=== PATIENT | female | born 1950 | race Caucasian/White ===

== ENCOUNTER 2017-01-05 09:43 | Outpatient (CLI) | payer MEDICARE, OTHER ==
--- NOTE | 2017-01-05 10:53 | XRAY Report ---
TWO VIEW CHEST: 01/05/2017 CLINICAL INDICATION: Shortness of breath. FINDINGS: Frontal and lateral views of the chest demonstrate a normal cardiac silhouette. The lungs are hyperinflated, suggestive of COPD. No focal consolidation, effusion, or pneumothorax is present. IMPRESSION: HYPERINFLATION, SUGGESTIVE OF COPD. JOB #: [id number] EXT JOB #: [id number] [facility]
== END 2017-01-05 09:44 | disposition home or self-care (01) ==
LOC: DI.S 09:43
PROVIDERS: ATTEND Nurse Practitioner Family
DX: R91.8 Other nonspecific abnormal finding of lung field (principal)
CPT/HCPCS: 71020

== ENCOUNTER 2017-01-19 20:23 | Outpatient (CLI) | payer MEDICARE, OTHER ==
[2017-01-19 18:15] LABS: BILIRUBIN,URINE NEGATIVE (NEGATIVE); PH,URINE 6.5 PH (5.0-7.5)
[2017-01-19 18:32] LABS: UR CULTURE IF IND NOT INDICATED; WBC,URINE 0-3 /HPF (0-5)
[2017-01-19 18:41] LABS: ALBUMIN/GLOBULIN RATIO 1.2 (1.0-2.2); BILIRUBIN,TOTAL 0.8 mg/dL (0.2-1.0); BUN - BLOOD UREA NITROGEN 17 mg/dL (6-20); CALCIUM 9.1 mg/dL (8.5-10.3); CARBON DIOXIDE - CO2 28 mmol/L (21-32); CHLORIDE 103 mmol/L (101-111); CHOL/HDL RATIO 3.3 (<4.4); CHOLESTEROL 121 mg/dL; CREATININE 0.7 mg/dL (0.4-1.0); GFR - MDRD 83 (>89); GLUCOSE 116 mg/dL (70-100); HDL CHOLESTEROL 37 mg/dL; LDL/HDL RATIO 1.2 (<4.4); POTASSIUM 3.8 mmol/L (3.5-5.0); SODIUM 139 mmol/L (135-145); TOTAL PROTEIN 6.9 g/dL (6.7-8.2); TRIGLYCERIDES 188 mg/dL; VLDL CHOLESTEROL 38 mg/dL
[2017-01-19 19:11] LABS: BASOPHILS # (AUTO) 0.1 10^3/uL (0.0-0.1); BASOPHILS % (AUTO) 1.1 %; EOSINOPHILS # (AUTO) 0.1 10^3/uL (0.0-0.7); HGB - HEMOGLOBIN 12.9 g/dL (12.0-16.0); LYMPHOCYTES # (AUTO) 1.3 10^3/uL (1.5-3.5); LYMPHOCYTES % (AUTO) 19.8 %; MEAN CORPUSCULAR HEMOGLOBIN 32.2 pg (27.0-31.0); MEAN CORPUSCULAR VOLUME 97.5 fL (81.0-99.0); MEAN PLATELET VOLUME 8.3 fL (7.9-10.8); MONOCYTES # (AUTO) 0.9 10^3/uL (0.0-1.0); MONOCYTES % (AUTO) 13.8 %; NEUTROPHILS # (AUTO) 4.3 10^3/uL (1.5-6.6); NEUTROPHILS % (AUTO) 63.3 %; NUCLEATED RED BLOOD CELLS AUTO 0.1 /100WBC; RED CELL DISTRIBUTION WIDTH 13.6 % (12.0-15.0); UNCORRECTED WHITE BLOOD COUNT 6.8 x10^3/uL; WHITE BLOOD COUNT 6.8 x10^3/uL (4.8-10.8)
[2017-01-19 19:57] LABS: HEMOGLOBIN A1C 0.69 g/dL
== END 2017-01-19 20:24 | disposition home or self-care (01) ==
LOC: LAB.S 20:23
PROVIDERS: ATTEND Nurse Practitioner Family
DX: I10 Essential (primary) hypertension (principal); E11.9 Type 2 diabetes mellitus without complications; E78.5 Hyperlipidemia, unspecified; E03.9 Hypothyroidism, unspecified
CPT/HCPCS: 36415; 80053; 80061; 81001; 82043; 82570; 83036; 84443; 85025; 87086

== ENCOUNTER 2017-01-21 12:44 | Outpatient (CLI) | payer MEDICARE, OTHER ==
[2017-01-21] MEDS ORDERED: ALBUTEROL NEB 2.5 MG/3 ML INH ONE (15:00)
== END 2017-01-21 12:45 | disposition home or self-care (01) ==
LOC: RT 12:44
PROVIDERS: ATTEND Nurse Practitioner Family
DX: R06.02 Shortness of breath (principal)
CPT/HCPCS: 94060; J7613

== ENCOUNTER 2017-08-03 10:09 | Outpatient (CLI) | payer MEDICARE, OTHER ==
[2017-08-03 20:34] LABS: HB2 TOTAL 15.3 g/dL; HEMOGLOBIN A1C 0.71 g/dL; HEMOGLOBIN A1C % 6.4 % (4.6-6.2)
== END 2017-08-03 10:10 | disposition home or self-care (01) ==
LOC: LAB.S 10:09
PROVIDERS: ATTEND Nurse Practitioner Family
DX: E11.9 Type 2 diabetes mellitus without complications (principal)
CPT/HCPCS: 36415; 83036

== ENCOUNTER 2017-08-03 10:10 | Outpatient (CLI) | payer MEDICARE, OTHER ==
--- NOTE | 2017-08-05 09:39 | Mammography Report ---
BILATERAL SCREENING MAMMOGRAM: 08/03/2017. COMPARISON: Mammogram 07/17/2016. INDICATION: Screening. TECHNIQUE: Bilateral CC and MLO breast views. FINDINGS: There are scattered fibroglandular densities. No dominant mass, architectural distortion, or concerning cluster of microcalcifications are seen. IMPRESSION: 1. BI-RADS CATEGORY 1 - NEGATIVE. 2. RECOMMEND ANNUAL SCREENING MAMMOGRAM. STANDARD QUALIFYING STATEMENTS: 1. This examination was reviewed with the aid of Computer-Aided Detection (CAD) . 2. A negative or benign imaging report should not delay biopsy if clinically suspicious findings are present. Consider surgical consultation if warranted. More than 5 % of cancers are not identified by imaging. 3. Dense breasts may obscure an underlying neoplasm. TD: 08/05/2017 09:38 [place]
== END 2017-08-03 10:11 | disposition home or self-care (01) ==
LOC: DI.S 10:10
PROVIDERS: ATTEND Nurse Practitioner Family
DX: Z12.31 Encounter for screening mammogram for malignant neoplasm of breast (principal)
CPT/HCPCS: 77067

== ENCOUNTER 2018-06-07 08:00 | Outpatient (CLI) | payer MEDICARE, OTHER ==
[2018-06-07 18:15] LABS: BASOPHILS # (AUTO) 0.1 10^3/uL (0.0-0.1); BASOPHILS % (AUTO) 1.2 %; EOSINOPHILS # (AUTO) 0.2 10^3/uL (0.0-0.7); EOSINOPHILS % (AUTO) 2.8 %; HGB - HEMOGLOBIN 13.7 g/dL (12.0-16.0); LYMPHOCYTES # (AUTO) 0.9 10^3/uL (1.5-3.5); LYMPHOCYTES % (AUTO) 13.2 %; MEAN CORPUSCULAR HEMOGLOBIN 31.5 pg (27.0-31.0); MEAN CORPUSCULAR HGB CONC 32.5 g/dL (32.0-36.0); MEAN CORPUSCULAR VOLUME 96.7 fL (81.0-99.0); MEAN PLATELET VOLUME 7.9 fL (7.9-10.8); MONOCYTES % (AUTO) 14.7 %; NEUTROPHILS # (AUTO) 4.8 10^3/uL (1.5-6.6); NEUTROPHILS % (AUTO) 68.1 %; PLT - PLATELET COUNT 357 10^3/uL (130-450); RED BLOOD COUNT 4.36 10^6/uL (4.20-5.40); RED CELL DISTRIBUTION WIDTH 14.3 % (12.0-15.0)
[2018-06-07 18:26] LABS: HB2 TOTAL 14.3 g/dL; HEMOGLOBIN A1C 0.66 g/dL; HEMOGLOBIN A1C % 6.4 % (4.6-6.2)
[2018-06-07 18:54] LABS: ALBUMIN 3.9 g/dL (3.2-5.5); ALBUMIN/GLOBULIN RATIO 1.1 (1.0-2.2); ALKALINE PHOSPHATASE 91 IU/L (42-121); ALT ALANINE AMINOTRANSFERASE 18 IU/L (10-60); AST ASPARTATE AMINOTRANSFERASE 22 IU/L (10-42); BILIRUBIN,TOTAL 0.7 mg/dL (0.2-1.0); BUN - BLOOD UREA NITROGEN 13 mg/dL (6-20); CALCIUM 9.1 mg/dL (8.5-10.3); CARBON DIOXIDE - CO2 23 mmol/L (21-32); CHLORIDE 105 mmol/L (101-111); CHOL/HDL RATIO 3.5 (<4.4); CHOLESTEROL 138 mg/dL; CREATININE 0.7 mg/dL (0.4-1.0); GFR - MDRD 83 (>89); GLUCOSE 127 mg/dL (70-100); HDL CHOLESTEROL 39 mg/dL; LDL CHOLESTEROL,CALCULATED 63 mg/dL; LDL/HDL RATIO 1.6 (<4.4); SODIUM 137 mmol/L (135-145); TOTAL PROTEIN 7.6 g/dL (6.7-8.2); VLDL CHOLESTEROL 36 mg/dL
== END 2018-06-07 23:59 | disposition home or self-care (01) ==
LOC: LAB.S 08:00
PROVIDERS: ATTEND Nurse Practitioner Family
DX: I10 Essential (primary) hypertension (principal); E03.9 Hypothyroidism, unspecified; E11.9 Type 2 diabetes mellitus without complications; E78.5 Hyperlipidemia, unspecified
CPT/HCPCS: 36415; 80053; 80061; 82043; 83036; 83721; 84443; 85025

== ENCOUNTER 2018-09-01 12:28 | Outpatient (CLI) | payer MEDICARE, OTHER | END 2018-09-01 12:29 | disposition home or self-care (01) | LOC: DI.N 12:28 | DX: Z53.9 Procedure and treatment not carried out, unspecified reason (principal) ==

== ENCOUNTER 2018-11-12 08:33 | Emergency (ER) | payer MEDICARE, OTHER ==
--- NOTE | 2018-11-12 08:53 | ED Physician Documentation ---
PD HPI DYSPNEA - Stated complaint Stated Complaint: SOA - Chief complaint Chief Complaint: Resp - History obtained from History obtained from: Patient - History of Present Illness Timing - onset: How many hours ago (4) Timing - onset during: Rest Timing - details: Still present Improved by: O2, BiPAP / CPAP Associated symptoms: Bilateral edema Similar symptoms before: Diagnosis ("Episodes of sleep apnea.") - Treatment prior to arrival Treatment prior to arrival: Oxygen 2L nasal cannula. - Additional information Additional information: Patient is a 68-year-old female with history of diabetes, atrial fibrillation, and sleep apnea who presents with shortness of breath that started at 4 AM today when up to the bathroom. She normally uses CPAP with 2 L supplemental oxygen when sleeping. She noticed that her pulse oximetry was low at 89% when she removed the oxygen. Normally she states it is around 94%. She denies chest pain, cough, or fever. She reports history of similar symptoms intermittently in the past, the last time being about 6 months ago. She states that her primary physician attributes them to "episodes of sleep apnea." Review of Systems Constitutional: denies: Fever Eyes: denies: Irritation Ears: denies: Tinnitus/ringing Nose: denies: Congestion Throat: denies: Sore throat Cardiac: denies: Chest pain / pressure Respiratory: reports: Dyspnea. denies: Cough GI: denies: Abdominal Pain, Nausea, Vomiting : denies: Dysuria Skin: denies: Rash Musculoskeletal: reports: Extremity swelling (chronic lymphadema.) Neurologic: denies: Focal weakness, Numbness, Headache PD PAST MEDICAL HISTORY - Present Medications Home Medications: Ambulatory Orders Medication Instructions Recorded Confirmed Albuterol Sulfate [Albuterol 0 11/12/18 Sulfate Hfa] Alendronate [Fosamax] 11/12/18 Atorvastatin Calcium 1 tab PO DAILY 11/12/18 11/12/18 Dabigatran Etexilate Mesylate 0 11/12/18 [Pradaxa] Diltiazem HCl [Dilt-Xr] 11/12/18 Fluticasone 44 Mcg [Flovent] 0 11/12/18 Levothyroxine Sodium 1 tab PO DAILY 11/12/18 11/12/18 Losartan [Cozaar] 0.5 tab PO BID 11/12/18 11/12/18 Metoprolol Succinate [Toprol Xl] 1 tab PO DAILY 11/12/18 11/12/18 Zolpidem [Ambien] 11/12/18 hydroCHLOROthiazide 1 tab PO DAILY 11/12/18 11/12/18 [Hydrochlorothiazide] metFORMIN [Glucophage] 1 tab PO BID 11/12/18 11/12/18 - Allergies Allergies/Adverse Reactions: Allergies Allergy/AdvReac Type Severity Reaction Status Date / Time acetaminophen [From Percocet] AdvReac Hallucinati Verified 11/12/18 08:55 ons codeine AdvReac Dizziness Verified 11/12/18 08:56 oxycodone [From Percocet] AdvReac Hallucinati Verified 11/12/18 08:55 ons PD ED PE NORMAL - Vitals Vital signs reviewed: Yes (Systolic hypertension.) - General General: Alert and oriented X 3, Well developed/nourished, Other (Morbidly obese .) - HEENT HEENT: Atraumatic, Pharynx benign - Neck Neck: No adenopathy, No JVD - Cardiac Cardiac: RRR, No murmur - Respiratory Respiratory: Clear bilaterally, Other (On 2L supplemental oxygen.) - Abdomen Abdomen: Soft, Non tender - Back Back: No CVA TTP - Derm Derm: No rash - Extremities Extremities: No calf tenderness / cord, Other (Bilateral lymphadema.) - Neuro Neuro: Alert and oriented X 3, No motor deficit, No sensory deficit, Normal speech Results - Vitals Vitals: Vital Signs - 24 hr 11/12/18 11:20 Temperature 36.8 C Heart Rate 85 Respiratory 20 Rate Blood Pressure 131/68 H O2 Saturation 96 Oxygen O2 Source Nasal cannula Oxygen Flow Rate 3.5 - EKG (time done) 08:49 Rate: Rate (enter#) (71) Rhythm: Atrial fibrillation [place]: Normal QRS: Normal Ischemia: Normal ST segments Compare to prior EKG: Old EKG unavailable Computer interpretation: Agree with computer - Labs Labs: Laboratory Tests 11/12/18 11/12/18 11/12/18 09:45 09:45 09:45 WBC 11.0 H RBC 4.15 L Hgb 12.5 Hct 40.1 MCV 96.6 MCH 30.1 MCHC 31.2 L RDW 12.9 Plt Count 341 MPV 9.2 Neut # (Auto) 8.4 H Lymph # (Auto) 1.0 L [place] # (Auto) 1.3 H Eos # (Auto) 0.1 Baso # (Auto) 0.1 Absolute Nucleated RBC 0.00 Nucleated RBC % 0.0 D-Dimer Sodium 140 Potassium 3.8 Chloride 105 Carbon Dioxide 23 Anion Gap 12.0 BUN 13 Creatinine 0.7 Estimated GFR (MDRD) 83 L Glucose 144 H Calcium 9.2 Total Bilirubin 0.8 AST 16 ALT 17 Alkaline Phosphatase 88 Troponin I < 0.04 B-Natriuretic Peptide Total Protein 7.6 Albumin 3.7 Globulin 3.9 Albumin/Globulin Ratio 0.9 L Lipase 22 Urine Color Urine Clarity Urine pH Ur Specific [place] Urine Protein Urine Glucose (UA) Urine Ketones Urine Occult Blood Urine Nitrite Urine Bilirubin Urine Urobilinogen Ur Leukocyte Esterase Urine RBC Urine WBC Ur Squamous Epith Cells Urine Bacteria Ur Microscopic Review Urine Culture Comments 11/12/18 11/12/18 11/12/18 09:45 09:45 10:45 WBC RBC Hgb Hct MCV MCH MCHC RDW Plt Count MPV Neut # (Auto) Lymph # (Auto) [place] # (Auto) Eos # (Auto) Baso # (Auto) Absolute Nucleated RBC Nucleated RBC % D-Dimer < 200.0 L Sodium Potassium Chloride Carbon Dioxide Anion Gap BUN Creatinine Estimated GFR (MDRD) Glucose Calcium Total Bilirubin AST ALT Alkaline Phosphatase Troponin I B-Natriuretic Peptide 234 H Total Protein Albumin Globulin Albumin/Globulin Ratio Lipase Urine Color YELLOW Urine Clarity CLEAR Urine pH 5.5 Ur Specific [place] <=1.005 Urine Protein NEGATIVE Urine Glucose (UA) NEGATIVE Urine Ketones NEGATIVE Urine Occult Blood NEGATIVE Urine Nitrite NEGATIVE Urine Bilirubin NEGATIVE Urine Urobilinogen 0.2 (NORMAL) Ur Leukocyte Esterase TRACE H Urine RBC 0-5 Urine WBC 0-3 Ur Squamous Epith Cells NONE SEEN Urine Bacteria Rare Ur Microscopic Review INDICATED Urine Culture Comments INDICATED - Rads (name of study) CXR Radiology: Prelim report reviewed, EMP read contemporaneously, See rad report (Mild cardiomegaly.) PD MEDICAL DECISION MAKING - ED course Complexity details: reviewed old records, reviewed results, re-evaluated patient, considered differential, d/w patient, d/w family ED course: The patient's presentation is most consistent with mild congestive heart failure. Her chest x-ray reveals mild cardiomegaly, without pleural effusions. Her EKG reveals no evidence of myocardial ischemia, and her troponin is normal. Her BNP is slightly elevated at 234. Treatment in the emergency department included administration of furosemide 20 mg IV. The patient diuresed, and felt subjectively much improved. She will continue taking her normal dose of hydrochlorothiazide as an outpatient. I will not prescribe additional diuretic therapy based on this one episode. I discussed with her and her family the importance of outpatient follow-up, as well as potentially worrisome signs or symptoms that should prompt reevaluation in the emergency department. Departure - Departure Disposition: 01 Home, Self Care Clinical Impression: Congestive heart failure Qualifiers: Heart failure type: unspecified Heart failure chronicity: unspecified Qualified Code(s): I50.9 - Heart failure, unspecified Condition: Stable Health Concerns: Shortness of breath. Plan of Treatment: Continue hydrochlorothiazide. Care Goals: Minimize heart failure. Assessment: see above. Instructions: ED CHF General Comments: Continue taking hydrochlorothiazide as previously prescribed. Avoid salty foods. Follow-up with your primary physician within 1 to 2 weeks. Call to schedule an appointment. Return to the emergency department if you develop increasing difficulty breathing, chest pain, or otherwise worsening symptoms. Discharge Date/Time: 11/12/18 11:23
--- NOTE | 2018-11-12 09:19 | XRAY Report ---
Reason: dyspnea Procedure Date: 11/12/2018 Accession Number: [id number] / [id number] Procedure: XR - Chest 2 View X-Ray CPT Code: 00346 FULL RESULT: EXAM: CHEST RADIOGRAPHY EXAM DATE: 11/12/2018 09:09 AM. CLINICAL HISTORY: Dyspnea. COMPARISON: 01/05/2017. TECHNIQUE: 2 views. FINDINGS: Exam is mildly limited by technique. Lungs/Pleura: No focal opacities evident. No pleural effusion. No pneumothorax. Normal volumes. Mediastinum: The heart size is mildly enlarged. Arterial calcifications indicate atherosclerosis. Other: Anterior endplate spurring is in the thoracic spine. IMPRESSION: Mild cardiomegaly. RADIA
[2018-11-12] MEDS ORDERED: FUROSEMIDE 20 MG/2 ML VIAL IVP STA (09:53)
[2018-11-12 10:01] LABS: BASOPHILS # (AUTO) 0.1 10^3/uL (0.0-0.1); BASOPHILS % (AUTO) 0.5 %; EOSINOPHILS # (AUTO) 0.1 10^3/uL (0.0-0.7); EOSINOPHILS % (AUTO) 1.1 %; HGB - HEMOGLOBIN 12.5 g/dL (12.0-16.0); LYMPHOCYTES % (AUTO) 9.2 %; MEAN CORPUSCULAR HEMOGLOBIN 30.1 pg (27.0-31.0); MEAN CORPUSCULAR HGB CONC 31.2 g/dL (32.0-36.0); MEAN CORPUSCULAR VOLUME 96.6 fL (81.0-99.0); MEAN PLATELET VOLUME 9.2 fL (7.9-10.8); MONOCYTES # (AUTO) 1.3 10^3/uL (0.0-1.0); MONOCYTES % (AUTO) 12.1 %; NEUTROPHILS # (AUTO) 8.4 10^3/uL (1.5-6.6); NEUTROPHILS % (AUTO) 76.5 %; PLT - PLATELET COUNT 341 10^3/uL (130-450); RED BLOOD COUNT 4.15 10^6/uL (4.20-5.40); RED CELL DISTRIBUTION WIDTH 12.9 % (12.0-15.0)
[2018-11-12 10:16] LABS: ALBUMIN 3.7 g/dL (3.2-5.5); ALBUMIN/GLOBULIN RATIO 0.9 (1.0-2.2); BILIRUBIN,TOTAL 0.8 mg/dL (0.2-1.0); CALCIUM 9.2 mg/dL (8.5-10.3); CREATININE 0.7 mg/dL (0.4-1.0); TOTAL PROTEIN 7.6 g/dL (6.7-8.2)
[2018-11-12 10:50] LABS: BILIRUBIN,URINE NEGATIVE (NEGATIVE); GLUCOSE, URINE (UA) NEGATIVE (NEGATIVE); KETONES,URINE (UA) NEGATIVE (NEGATIVE); LEUKOCYTE ESTERASE, URINE TRACE (NEGATIVE); NITRITE,URINE NEGATIVE (NEGATIVE); OCCULT BLOOD,URINE NEGATIVE (NEGATIVE); PH,URINE 5.5 PH (5.0-7.5); PROTEIN,URINE NEGATIVE (NEGATIVE); UROBILINOGEN,URINE 0.2 (NORMAL) E.U./dL (NORMAL)
[2018-11-12 10:53] LABS: CLARITY,URINE CLEAR (CLEAR)
[2018-11-12 10:58] LABS: RBC,URINE 0-5 /HPF (0-5)
[2018-11-12 10:59] LABS: BACTERIA,URINE Rare /HPF (None Seen); SQUAMOUS EPITHELIAL CELL,UR NONE SEEN (<= Few)
[2018-11-12 11:20] VITALS: BP 131/68
== END 2018-11-12 11:23 | disposition home or self-care (01) ==
LOC: ED 08:33
DX: I50.9 Heart failure, unspecified (principal); I89.0 Lymphedema, not elsewhere classified; I48.91 Unspecified atrial fibrillation; Z79.01 Long term (current) use of anticoagulants; E11.9 Type 2 diabetes mellitus without complications; Z79.84 Long term (current) use of oral hypoglycemic drugs; G47.30 Sleep apnea, unspecified
CPT/HCPCS: 36415; 71046; 80053; 81001; 81003; 83690; 83880; 84484; 85025; 85379; 87086; 87181; 93005; 96374; 99284

== ENCOUNTER 2019-02-09 10:22 | Outpatient (CLI) | payer MEDICARE, OTHER | END 2019-02-09 10:23 | disposition home or self-care (01) | LOC: DI 10:22 | PROVIDERS: ATTEND Internal Medicine Cardiovascular Disease | DX: I48.91 Unspecified atrial fibrillation (principal); I50.9 Heart failure, unspecified; I34.0 Nonrheumatic mitral (valve) insufficiency; I27.20 Pulmonary hypertension, unspecified | CPT/HCPCS: 93306 ==

== ENCOUNTER 2019-03-01 14:16 | Outpatient (CLI) | payer MEDICARE, OTHER ==
[2019-03-01 17:43] LABS: CREATININE 0.7 mg/dL (0.4-1.0)
== END 2019-03-01 14:17 | disposition home or self-care (01) ==
LOC: LAB.S 14:16
PROVIDERS: ATTEND Internal Medicine Cardiovascular Disease
DX: I50.32 Chronic diastolic (congestive) heart failure (principal)
CPT/HCPCS: 36415; 80048

== ENCOUNTER 2019-03-03 08:57 | Outpatient (CLI) | payer MEDICARE, OTHER | END 2019-03-03 08:58 | disposition home or self-care (01) | LOC: RT 08:57 | PROVIDERS: ATTEND Obstetrics & Gynecology | DX: Z01.810 Encounter for preprocedural cardiovascular examination (principal); C54.1 Malignant neoplasm of endometrium | CPT/HCPCS: 93005; 93041 ==

== ENCOUNTER 2019-03-22 10:56 | Outpatient (CLI) | payer MEDICARE, OTHER ==
[2019-03-22 11:15] LABS: BILIRUBIN,URINE NEGATIVE (NEGATIVE); CLARITY,URINE HAZY (CLEAR); GLUCOSE, URINE (UA) NEGATIVE (NEGATIVE); KETONES,URINE (UA) NEGATIVE (NEGATIVE); LEUKOCYTE ESTERASE, URINE TRACE (NEGATIVE); NITRITE,URINE POSITIVE (NEGATIVE); OCCULT BLOOD,URINE LARGE (NEGATIVE); PROTEIN,URINE 100 mg/dL (NEGATIVE); UROBILINOGEN,URINE 1 (NORMAL) E.U./dL (NORMAL)
[2019-03-22 11:28] LABS: BACTERIA,URINE Few /HPF (None Seen); SQUAMOUS EPITHELIAL CELL,UR MANY Squamous (<= Few)
== END 2019-03-22 10:57 | disposition home or self-care (01) ==
LOC: LAB 10:56
PROVIDERS: ATTEND Obstetrics & Gynecology
DX: Z98.890 Other specified postprocedural states (principal); R39.15 Urgency of urination
CPT/HCPCS: 81001; 81003; 87086

== ENCOUNTER 2019-03-29 12:41 | Outpatient (CLI) | payer MEDICARE, OTHER ==
[2019-03-29 17:45] LABS: CALCIUM 8.8 mg/dL (8.5-10.3); CREATININE 0.7 mg/dL (0.4-1.0)
== END 2019-03-29 12:42 | disposition home or self-care (01) ==
LOC: LAB.S 12:41
PROVIDERS: ATTEND Internal Medicine Cardiovascular Disease
DX: I10 Essential (primary) hypertension (principal)
CPT/HCPCS: 36415; 80048

== ENCOUNTER 2020-01-18 10:19 | Outpatient (CLI) | payer MEDICARE, OTHER ==
[2020-01-18 15:06] LABS: BASOPHILS # (AUTO) 0.1 10^3/uL (0.0-0.1); BASOPHILS % (AUTO) 0.8 %; EOSINOPHILS # (AUTO) 0.2 10^3/uL (0.0-0.7); EOSINOPHILS % (AUTO) 2.8 %; HGB - HEMOGLOBIN 13.3 g/dL (12.0-16.0); LYMPHOCYTES % (AUTO) 12.4 %; MEAN CORPUSCULAR HEMOGLOBIN 30.7 pg (27.0-31.0); MEAN CORPUSCULAR HGB CONC 31.5 g/dL (32.0-36.0); MEAN CORPUSCULAR VOLUME 97.5 fL (81.0-99.0); MEAN PLATELET VOLUME 9.5 fL (7.9-10.8); MONOCYTES # (AUTO) 1.4 10^3/uL (0.0-1.0); MONOCYTES % (AUTO) 17.2 %; NEUTROPHILS # (AUTO) 5.3 10^3/uL (1.5-6.6); NEUTROPHILS % (AUTO) 66.2 %; PLT - PLATELET COUNT 346 10^3/uL (130-450); RED BLOOD COUNT 4.33 10^6/uL (4.20-5.40); RED CELL DISTRIBUTION WIDTH 13.8 % (12.0-15.0); WHITE BLOOD COUNT 7.9 x10^3/uL (4.8-10.8)
[2020-01-18 15:32] LABS: ALBUMIN 3.7 g/dL (3.2-5.5); ALBUMIN/GLOBULIN RATIO 0.8 (1.0-2.2); ALKALINE PHOSPHATASE 87 IU/L (42-121); ALT ALANINE AMINOTRANSFERASE 15 IU/L (10-60); AST ASPARTATE AMINOTRANSFERASE 17 IU/L (10-42); BUN - BLOOD UREA NITROGEN 13 mg/dL (6-20); CARBON DIOXIDE - CO2 29 mmol/L (21-32); CHLORIDE 101 mmol/L (101-111); CHOL/HDL RATIO 3.9 (<4.4); CHOLESTEROL 139 mg/dL; CREATININE 0.7 mg/dL (0.4-1.0); GLUCOSE 121 mg/dL (70-100); HDL CHOLESTEROL 36 mg/dL; LDL CHOLESTEROL,CALCULATED 66 mg/dL; LDL/HDL RATIO 1.8 (<4.4); SODIUM 136 mmol/L (135-145); TOTAL PROTEIN 8.1 g/dL (6.7-8.2); VLDL CHOLESTEROL 37 mg/dL
[2020-01-18 18:56] LABS: HEMOGLOBIN A1c% 6.7 % (4.27-6.07)
== END 2020-01-18 10:20 | disposition home or self-care (01) ==
LOC: LAB.S 10:19
PROVIDERS: ATTEND Registered Nurse
DX: E11.9 Type 2 diabetes mellitus without complications (principal); I10 Essential (primary) hypertension; E05.90 Thyrotoxicosis, unspecified without thyrotoxic crisis or storm; I27.20 Pulmonary hypertension, unspecified; J45.909 Unspecified asthma, uncomplicated
CPT/HCPCS: 36415; 80053; 80061; 83036; 83721; 84443; 85025

== ENCOUNTER 2020-12-19 08:00 | Outpatient (CLI) | payer MEDICARE, OTHER ==
--- NOTE | 2020-12-19 16:14 | XRAY Report ---
PROCEDURE: Chest 2 View X-Ray INDICATIONS: SHORTNESS OF BREATH TECHNIQUE: 2 view(s) of the chest. COMPARISON: 11/12/2018. FINDINGS: Surgical changes and devices: None. Lungs and pleura: No pleural effusions or pneumothorax. There is cephalization of pulmonary mass whi ch are interstitial prominence. Mediastinum: Mediastinal contours are normal. Heart is enlarged Bones and chest wall: No suspicious bony abnormalities. Soft tissues appear unremarkable. IMPRESSION: CHF. Reviewed by: Bettina Lezama MD, PhD on 12/19/2020 4:12 PM PDT Approved by: Bettina Lezama MD, PhD on 12/19/2020 4:12 PM PDT Station ID: [id number]
== END 2020-12-19 23:59 | disposition home or self-care (01) ==
LOC: DI.S 08:00
PROVIDERS: ATTEND Physician Assistant Medical
DX: I50.9 Heart failure, unspecified (principal)
CPT/HCPCS: 36415; 85025; 85379

== ENCOUNTER 2020-12-19 17:12 | Emergency (ER) | payer MEDICARE, OTHER ==
--- NOTE | 2020-12-19 17:46 | ED Physician Documentation ---
PD HPI DYSPNEA - Stated complaint Stated Complaint: SOA - Chief complaint Chief Complaint: Cardiac - History obtained from History obtained from: Patient - History of Present Illness Timing - duration: Days (4-5) Pain level max: 0 Pain level now: 0 Inciting event(s): No: URI Improved by: Rest Worsened by: Exertion Associated symptoms: No: Fever, Cough, Hemoptysis Recently seen: Not recently seen - Additional information Additional information: 70-year-old female with a history of CHF presents to the emergency department with increasing difficulty breathing over the past 4 to 5 days. She states she has asthma as well. Inhalers are not working. Uses Lasix as needed. Was seen at the walk-in clinic today, found to have pulmonary edema on chest x-ray and sent here. Denies any chest pain. No fevers no cough no hemoptysis. Better with rest, worse with walking. Patient has had her Covid vaccinations. Review of Systems Constitutional: denies: Fever, Chills Nose: denies: Rhinorrhea / runny nose, Congestion GI: denies: Vomiting Skin: denies: Rash Musculoskeletal: denies: Neck pain, Back pain Neurologic: denies: Headache PD PAST MEDICAL HISTORY - Past Medical History Cardiovascular: Atrial fibrillation Respiratory: Asthma, Shortness of breath Neuro: None Endocrine/Autoimmune: Type 2 diabetes, HyPOthyroidism GI: None MANAGER WEALTH MANAGEMENT: None : None HEENT: None Psych: None Musculoskeletal: Osteoarthritis Derm: None - Past Surgical History Past Surgical History: Yes HEENT: Tonsil/Adenoidectomy - Present Medications Home Medications: Ambulatory Orders Medication Instructions Recorded Confirmed Albuterol Sulfate [Albuterol 0 11/12/18 Sulfate Hfa] Alendronate [Fosamax] 11/12/18 Atorvastatin Calcium 1 tab PO DAILY 11/12/18 11/12/18 Dabigatran Etexilate Mesylate 0 11/12/18 [Pradaxa] Diltiazem HCl [Dilt-Xr] 11/12/18 Fluticasone 44 Mcg [Flovent] 0 11/12/18 Levothyroxine Sodium 1 tab PO DAILY 11/12/18 11/12/18 Losartan [Cozaar] 0.5 tab PO BID 11/12/18 11/12/18 Metoprolol Succinate [Toprol Xl] 1 tab PO DAILY 11/12/18 11/12/18 Zolpidem [Ambien] 11/12/18 hydroCHLOROthiazide 1 tab PO DAILY 11/12/18 11/12/18 [Hydrochlorothiazide] metFORMIN [Glucophage] 1 tab PO BID 11/12/18 11/12/18 - Allergies Allergies/Adverse Reactions: Allergies Allergy/AdvReac Type Severity Reaction Status Date / Time acetaminophen [From Percocet] AdvReac Hallucinati Verified 12/19/20 17:22 ons codeine AdvReac Dizziness Verified 12/19/20 17:22 oxycodone [From Percocet] AdvReac Hallucinati Verified 12/19/20 17:22 ons - Social History Does the pt smoke?: No Smoking Status: Never smoker Does the pt have substance abuse?: No - Immunizations Immunizations are current?: Yes PD ED PE NORMAL - Vitals Vital signs reviewed: Yes - General General: Alert and oriented X 3, No acute distress - HEENT HEENT: Moist mucous membranes - Neck Neck: Supple, no meningeal sign - Cardiac Cardiac: RRR - Respiratory Respiratory: No respiratory distress, Other (Crackles bilaterally) - Abdomen Abdomen: Soft, Non tender, Non distended - Derm Derm: Warm and dry - Extremities Extremities: Other (2+ bilateral lower extremity pitting edema.) - Neuro Neuro: Alert and oriented X 3 - Psych Psych: Normal mood, Normal affect Results - Vitals Vitals: Vital Signs - 24 hr 12/19/20 12/19/20 12/19/20 17:17 18:39 20:06 Temperature 36.2 C L Heart Rate 87 92 92 Respiratory 22 18 14 Rate Blood Pressure 127/79 106/84 H 116/94 H O2 Saturation 91 L 93 91 L 12/19/20 20:18 Temperature 36.3 C L Heart Rate 81 Respiratory 16 Rate Blood Pressure 110/81 H O2 Saturation 92 Oxygen O2 Source Nasal cannula - EKG (time done) 1732 Rate: Rate (enter#) (81) Rhythm: Atrial fibrillation [place]: Normal Intervals: Prolonged [place] QRS: Normal Ischemia: Non specific changes - Labs Labs: Laboratory Tests 12/19/20 12/19/20 12/19/20 17:45 17:45 17:45 WBC 11.3 H RBC 4.33 Hgb 13.6 Hct 41.3 MCV 95.4 MCH 31.4 H MCHC 32.9 RDW 13.2 Plt Count 361 MPV 9.0 Neut # (Auto) 8.6 H Lymph # (Auto) 1.1 L [place] # (Auto) 1.2 H Eos # (Auto) 0.3 Baso # (Auto) 0.1 Absolute Nucleated RBC 0.00 Nucleated RBC % 0.0 Sodium 137 Potassium 3.6 Chloride 100 L Carbon Dioxide 25 Anion Gap 12.0 BUN 21 H Creatinine 0.8 Estimated GFR (MDRD) 71 L Glucose 134 H Calcium 9.7 Total Bilirubin 1.0 AST 16 ALT 15 Alkaline Phosphatase 99 Troponin I High Sens 4.7 B-Natriuretic Peptide Total Protein 8.2 Albumin 3.9 Globulin 4.3 H Albumin/Globulin Ratio 0.9 L Lipase 24 12/19/20 17:45 WBC RBC Hgb Hct MCV MCH MCHC RDW Plt Count MPV Neut # (Auto) Lymph # (Auto) [place] # (Auto) Eos # (Auto) Baso # (Auto) Absolute Nucleated RBC Nucleated RBC % Sodium Potassium Chloride Carbon Dioxide Anion Gap BUN Creatinine Estimated GFR (MDRD) Glucose Calcium Total Bilirubin AST ALT Alkaline Phosphatase Troponin I High Sens B-Natriuretic Peptide 164 H Total Protein Albumin Globulin Albumin/Globulin Ratio Lipase - Rads (name of study) Chest x-ray Radiology: Final report received, EMP read contemporaneously, See rad report (Cardiomegaly without acute cardiopulmonary abnormality) PD MEDICAL DECISION MAKING - ED course Complexity details: reviewed results, re-evaluated patient, considered differential, d/w patient, d/w family ED course: Patient feels better after a dose of Lasix. She is only using her Lasix as needed at home. Recommend that she start this daily. Lungs are clear to auscultation bilaterally on repeat evaluation. She is not hypoxic. Patient does use 3 L of O2 at night. Patient is well-appearing, nontoxic. Afebrile. We will have her follow-up with her doctor for further care. Patient counseled regarding signs and symptoms for which I believe and urgent re-evaluation would be necessary. Patient with good understanding of and agreement to plan and is comfortable going home at this time This document was made in part using voice recognition software. While efforts are made to proofread this document, sound alike and grammatical errors may occur. Departure - Departure Disposition: 01 Home, Self Care Clinical Impression: Congestive heart failure Qualifiers: Heart failure type: unspecified Heart failure chronicity: acute on chronic Qualified Code(s): I50.9 - Heart failure, unspecified Pulmonary edema Qualifiers: Chronicity: acute Qualified Code(s): J81.0 - Acute pulmonary edema Condition: Good Instructions: ED CHF General Follow-Up: NESHA RAMOS MD [Primary Care Provider] - Within 1 week Comments: Start your Lasix at 20 mg daily and follow-up with your doctor for further care. Return if you worsen. Discharge Date/Time: 12/19/20 20:23
[2020-12-19] MEDS ORDERED: FUROSEMIDE 40 MG/4 ML VIAL IVP STA (17:47)
[2020-12-19 18:00] LABS: BASOPHILS # (AUTO) 0.1 10^3/uL (0.0-0.1); BASOPHILS % (AUTO) 0.7 %; EOSINOPHILS # (AUTO) 0.3 10^3/uL (0.0-0.7); EOSINOPHILS % (AUTO) 2.3 %; HCT - HEMATOCRIT 41.3 % (37.0-47.0); HGB - HEMOGLOBIN 13.6 g/dL (12.0-16.0); LYMPHOCYTES # (AUTO) 1.1 10^3/uL (1.5-3.5); MEAN CORPUSCULAR HEMOGLOBIN 31.4 pg (27.0-31.0); MEAN CORPUSCULAR HGB CONC 32.9 g/dL (32.0-36.0); MEAN CORPUSCULAR VOLUME 95.4 fL (81.0-99.0); MONOCYTES # (AUTO) 1.2 10^3/uL (0.0-1.0); MONOCYTES % (AUTO) 10.6 %; NEUTROPHILS # (AUTO) 8.6 10^3/uL (1.5-6.6); NEUTROPHILS % (AUTO) 75.8 %; PLT - PLATELET COUNT 361 10^3/uL (130-450); RED BLOOD COUNT 4.33 10^6/uL (4.20-5.40); RED CELL DISTRIBUTION WIDTH 13.2 % (12.0-15.0); WHITE BLOOD COUNT 11.3 x10^3/uL (4.8-10.8)
[2020-12-19 18:16] LABS: ALBUMIN 3.9 g/dL (3.2-5.5); ALBUMIN/GLOBULIN RATIO 0.9 (1.0-2.2); CALCIUM 9.7 mg/dL (8.5-10.3); CREATININE 0.8 mg/dL (0.4-1.0); POTASSIUM 3.6 mmol/L (3.5-5.0); TOTAL PROTEIN 8.2 g/dL (6.7-8.2)
--- NOTE | 2020-12-19 18:47 | XRAY Report ---
PROCEDURE: Chest 1 View X-Ray INDICATIONS: Chest Pain TECHNIQUE: One view of the chest was acquired. COMPARISON: None. FINDINGS: Surgical changes and devices: None. Lungs and pleura: No pleural effusions or pneumothorax. Lungs are clear. Mediastinum: Mediastinal contours appear normal. Heart size is enlarged. Bones and chest wall: No suspicious bony lesions. Overlying soft tissues appear unremarkable. IMPRESSION: 1. Cardiomegaly. 2. No acute cardiopulmonary abnormality. Reviewed by: Kunal Shelton on 12/19/2020 6:46 PM PDT Approved by: Kunal Shelton on 12/19/2020 6:46 PM PDT Station ID: [id number]
[2020-12-19 20:19] VITALS: BP 110/81
== END 2020-12-19 20:23 | disposition home or self-care (01) ==
LOC: ED 17:12
DX: I50.1 Left ventricular failure, unspecified (principal)
CPT/HCPCS: 36415; 80053; 83690; 83880; 84484; 85025; 85379; 93005; 96374; 99284

== ENCOUNTER 2020-12-22 15:47 | Outpatient (CLI) | payer MEDICARE, OTHER | END 2020-12-22 15:48 | disposition EMS.NT | LOC: EMS 15:47 | DX: R06.09 Other forms of dyspnea (principal) ==

== ENCOUNTER 2022-08-15 16:05 | Outpatient (CLI) | payer MEDICARE, OTHER | END 2022-08-15 23:59 | disposition critical access hospital (66) | LOC: EMS 16:05 | DX: R06.02 Shortness of breath (principal); R05.9 Cough, unspecified | CPT/HCPCS: A0425; A0429 ==

== ENCOUNTER 2022-08-15 16:45 | Inpatient (IN) | payer MEDICARE, OTHER ==
[2022-08-15] MEDS ORDERED: IPRATROPIUM/ALBUTEROL 3 ML NEB INH STA (16:52)
--- NOTE | 2022-08-15 16:58 | ED Physician Documentation ---
PD HPI DYSPNEA - Stated complaint Stated Complaint: SOA - History obtained from History obtained from: Patient, EMS - Additional information Additional information: 71-year-old woman with history of asthma, CHF, A-fib. Recently traveled back from the [employer] 3 days ago. On her way back she did skip few doses of her Lasix so as not to have to urinate on the flight. She has had cough and cold symptoms for a few days with increasing shortness of breath today. She does wear CPAP at home with an oxygen concentrator only at night. At home her oxygen saturations were reportedly in the range of 85% on supplemental oxygen. She denies increased pedal edema or calf pain. No chest pain. No fevers. PD PAST MEDICAL HISTORY - Past Medical History Cardiovascular: Atrial fibrillation Respiratory: Asthma, Shortness of breath Neuro: None Endocrine/Autoimmune: Type 2 diabetes, HyPOthyroidism GI: None INKER: None : None HEENT: None Psych: None Musculoskeletal: Osteoarthritis Derm: None - Past Surgical History Past Surgical History: Yes HEENT: Tonsil/Adenoidectomy - Present Medications Home Medications: Ambulatory Orders Medication Instructions Recorded Confirmed Albuterol Sulfate [Albuterol 0 11/12/18 Sulfate Hfa] Alendronate [Fosamax] 11/12/18 Atorvastatin Calcium 1 tab PO DAILY 11/12/18 11/12/18 Dabigatran Etexilate Mesylate 0 11/12/18 [Pradaxa] Diltiazem HCl [Dilt-Xr] 11/12/18 Fluticasone 44 Mcg [Flovent] 0 11/12/18 Levothyroxine Sodium 1 tab PO DAILY 11/12/18 11/12/18 Losartan [Cozaar] 0.5 tab PO BID 11/12/18 11/12/18 Metoprolol Succinate [Toprol Xl] 1 tab PO DAILY 11/12/18 11/12/18 Zolpidem [Ambien] 11/12/18 hydroCHLOROthiazide 1 tab PO DAILY 11/12/18 11/12/18 [Hydrochlorothiazide] metFORMIN [Glucophage] 1 tab PO BID 11/12/18 11/12/18 - Allergies Allergies/Adverse Reactions: Allergies Allergy/AdvReac Type Severity Reaction Status Date / Time acetaminophen [From Percocet] AdvReac Hallucinati Verified 08/15/22 17:10 ons codeine AdvReac Dizziness Verified 08/15/22 17:10 oxycodone [From Percocet] AdvReac Hallucinati Verified 08/15/22 17:10 ons - Social History Does the pt smoke?: No Smoking Status: Never smoker Does the pt have substance abuse?: No - Immunizations Immunizations are current?: Yes PD ED PE NORMAL - Vitals Vital signs reviewed: Yes - General General: Alert and oriented X 3, No acute distress - HEENT HEENT: PERRL, EOMI, Pharynx benign - Neck Neck: Supple, no meningeal sign, No bony TTP - Cardiac Cardiac: Other (Irregularly irregular without murmur) - Respiratory Respiratory: Other (Quite diminished throughout, potentially related to body habitus. Especially diminished at the bases with expiratory wheezes.) - Abdomen Abdomen: Non tender - Back Back: No CVA TTP, No spinal TTP - Derm Derm: Normal color, Warm and dry - Extremities Extremities: Other (She has significant pitting pedal edema which she says is chronic and unchanged with compression stockings in place.) - Neuro Neuro: Alert and oriented X 3, Normal speech Results - Vitals Vitals: Vital Signs - 24 hr 08/15/22 08/15/22 08/15/22 17:04 17:06 17:26 Temperature 36.9 C Heart Rate 79 74 86 Respiratory 24 22 21 Rate Blood Pressure 160/108 H 160/103 H O2 Saturation 90 L 91 L If not protocol 6 : Oxygen Flow, liters/minute 08/15/22 19:09 Temperature Heart Rate 77 Respiratory 16 Rate Blood Pressure 135/85 H O2 Saturation 92 If not protocol 6 : Oxygen Flow, liters/minute Oxygen O2 Source Nasal cannula Oxygen Flow Rate 6 - EKG (time done) 1740 EKG releavant findings:: EKG personally interpreted by author of this note. Relevant findings are: Rate: Rate (enter#) (83) Rhythm: Atrial fibrillation Champion: Normal QRS: Low voltage Ischemia: Non specific changes. No: ST elevation c/w ischemia, ST depression - Labs Labs: Laboratory Tests 08/15/22 08/15/22 08/15/22 16:59 16:59 16:59 WBC 15.3 H RBC 3.95 L Hgb 12.2 Hct 39.1 MCV 99.0 MCH 30.9 MCHC 31.2 L RDW 14.3 Plt Count 320 MPV 8.7 Neut # (Auto) 12.6 H Lymph # (Auto) 0.7 L Schleicher # (Auto) 1.6 H Eos # (Auto) 0.3 Baso # (Auto) 0.0 Absolute Nucleated RBC 0.00 Nucleated RBC % 0.0 Manual Slide Review Indicated WBC Morphology NORMAL APPEARANCE Platelet Estimate NORMAL (130-450,000) Platelet Morphology NORMAL APPEARANCE RBC Morph Micro Appear NORMAL APPEARANCE VBG pH VBG pCO2 VBG pO2 VBG HCO3 VBG Total CO2 VBG O2 Saturation VBG Base Excess Sodium 137 Potassium 4.2 Chloride 105 Carbon Dioxide 23 Anion Gap 9.0 BUN 15 Creatinine 0.9 Estimated GFR (MDRD) 61 L Glucose 150 H Lactic Acid Calcium 8.9 Phosphorus 3.7 Magnesium 1.9 Total Bilirubin 1.0 AST 16 ALT 17 Alkaline Phosphatase 84 B-Natriuretic Peptide 238 H Total Protein 7.5 Albumin 3.7 Globulin 3.8 Albumin/Globulin Ratio 1.0 Lipase 25 Nasal Adenovirus (PCR) Nasal B. parapertussis DNA (PCR) Nasal Coronavir 229E PCR Nasal Coronavir HKU1 PCR Nasal Coronavir NL63 PCR Nasal Coronavir OC43 PCR Nasal Enterovir/Rhinovir PCR Nasal Influenza B PCR Nasal Influenza A PCR Nasal Parainfluen 1 PCR Nasal Parainfluen 2 PCR Nasal Parainfluen 3 PCR Nasal Parainfluen 4 PCR Nasal RSV (PCR) Nasal B.pertussis DNA PCR Nasal C.pneumoniae (PCR) Maikel Human Metapneumo PCR Nasal M.pneumoniae (PCR) Nasal SARS-CoV-2 (PCR) 08/15/22 08/15/22 08/15/22 16:59 17:20 17:52 WBC RBC Hgb Hct MCV MCH MCHC RDW Plt Count MPV Neut # (Auto) Lymph # (Auto) Schleicher # (Auto) Eos # (Auto) Baso # (Auto) Absolute Nucleated RBC Nucleated RBC % Manual Slide Review WBC Morphology Platelet Estimate Platelet Morphology RBC Morph Micro Appear VBG pH 7.401 VBG pCO2 39.6 L VBG pO2 38.2 VBG HCO3 24.0 VBG Total CO2 25.3 VBG O2 Saturation 74.1 VBG Base Excess -0.6 Sodium Potassium Chloride Carbon Dioxide Anion Gap BUN Creatinine Estimated GFR (MDRD) Glucose Lactic Acid 1.2 Calcium Phosphorus Magnesium Total Bilirubin AST ALT Alkaline Phosphatase B-Natriuretic Peptide Total Protein Albumin Globulin Albumin/Globulin Ratio Lipase Nasal Adenovirus (PCR) NOT DETECTED Nasal B. parapertussis DNA (PCR) NOT DETECTED Nasal Coronavir 229E PCR NOT DETECTED Nasal Coronavir HKU1 PCR NOT DETECTED Nasal Coronavir NL63 PCR NOT DETECTED Nasal Coronavir OC43 PCR NOT DETECTED Nasal Enterovir/Rhinovir PCR DETECTED A Nasal Influenza B PCR NOT DETECTED Nasal Influenza A PCR NOT DETECTED Nasal Parainfluen 1 PCR NOT DETECTED Nasal Parainfluen 2 PCR NOT DETECTED Nasal Parainfluen 3 PCR NOT DETECTED Nasal Parainfluen 4 PCR NOT DETECTED Nasal RSV (PCR) NOT DETECTED Nasal B.pertussis DNA PCR NOT DETECTED Nasal C.pneumoniae (PCR) NOT DETECTED Maikel Human Metapneumo PCR NOT DETECTED Nasal M.pneumoniae (PCR) NOT DETECTED Nasal SARS-CoV-2 (PCR) NOT DETECTED - Rads (name of study) 1v CXR Findings suggestive of fluid overload/CHF. Right basilar opacity also present which could represent edema, atelectasis, aspiration, or pneumonia Relevant Findings:: Final report received, EMP independent interpretation of test PD Medical Decision Making - ED course ED course: 71-year-old woman with history of A-fib and CHF with recent return from travel presents with productive cough and shortness of breath. Chest x-ray most consistent with a right basilar pneumonia, somewhat hard to interpret given her body habitus. Her BNP is only modestly elevated and pretty much similar to her usual BNPs on chart review. She does have an elevated white count with an unremarkable venous blood gas. She does have a significant oxygen requirement of about 5 L here. Desats quickly into the mid 80s on room air. Given the above we will culture her up and give her Rocephin and Zithromax and admit her. I originally contacted the day hospitalist for admission approximately 5:40 PM and she is overwhelmed and defers to the night hospitalist for admission. Case discussed with Dr. Delgado for admission at 7:40 PM. Departure - Departure Disposition: 66 [facility] DC/Xfer Clinical Impression: Rhinovirus, Morbid obesity Pneumonia Qualifiers: Pneumonia type: due to unspecified organism Laterality: right Lung location: lower lobe of lung Qualified Code(s): J18.9 - Pneumonia, unspecified organism Respiratory failure Qualifiers: Chronicity: acute Respiratory failure complication: hypoxia Qualified Code(s): J96.01 - Acute respiratory failure with hypoxia Condition: Serious
[2022-08-15 17:05] LABS: BASOPHILS % (AUTO) 0.3 %; EOSINOPHILS # (AUTO) 0.3 10^3/uL (0.0-0.7); EOSINOPHILS % (AUTO) 1.6 %; HCT - HEMATOCRIT 39.1 % (37.0-47.0); HGB - HEMOGLOBIN 12.2 g/dL (12.0-16.0); LYMPHOCYTES # (AUTO) 0.7 10^3/uL (1.5-3.5); LYMPHOCYTES % (AUTO) 4.8 %; MEAN CORPUSCULAR HEMOGLOBIN 30.9 pg (27.0-31.0); MEAN CORPUSCULAR HGB CONC 31.2 g/dL (32.0-36.0); MEAN PLATELET VOLUME 8.7 fL (7.9-10.8); MONOCYTES # (AUTO) 1.6 10^3/uL (0.0-1.0); MONOCYTES % (AUTO) 10.6 %; NEUTROPHILS # (AUTO) 12.6 10^3/uL (1.5-6.6); NEUTROPHILS % (AUTO) 82.2 %; PLT - PLATELET COUNT 320 10^3/uL (130-450); RED BLOOD COUNT 3.95 10^6/uL (4.20-5.40); RED CELL DISTRIBUTION WIDTH 14.3 % (12.0-15.0); WHITE BLOOD COUNT 15.3 x10^3/uL (4.8-10.8)
[2022-08-15 17:07] LABS: SLIDE REVIEW? Indicated
[2022-08-15 17:08] LABS: VBG BASE EXCESS -0.6 mmol/L (-2 - +2); VBG OXYGEN SATURATION 74.1 % (60-80); VBG PCO2 39.6 mmHg (41-51); VBG PH 7.401 (7.31-7.41); VBG PO2 38.2 mmHg (25-47); VBG TOTAL CO2 25.3 mmol/L (24-29)
[2022-08-15 17:18] LABS: ALBUMIN 3.7 g/dL (3.2-5.5); CALCIUM 8.9 mg/dL (8.5-10.3); CREATININE 0.9 mg/dL (0.4-1.0); MAGNESIUM 1.9 mg/dL (1.7-2.8); PHOSPHORUS 3.7 mg/dL (2.5-4.6); POTASSIUM 4.2 mmol/L (3.5-5.0); TOTAL PROTEIN 7.5 g/dL (6.7-8.2)
--- NOTE | 2022-08-15 17:24 | XRAY Report ---
PROCEDURE: Chest 1 View X-Ray INDICATIONS: dyspnea TECHNIQUE: One view of the chest was acquired. COMPARISON: 12/11/2020 FINDINGS: Surgical changes and devices: None. Lungs and pleura: Patchy opacity present right lung base. Similar interstitial opacities redemonstra shaggy bilaterally. Mediastinum: Cardiac silhouette is enlarged. Pulmonary vasculature appears congested. Bones and chest wall: No suspicious bony lesions. Overlying soft tissues appear unremarkable. IMPRESSION: Findings suggestive of fluid overload/CHF. Right basilar opacity also present which could represent e guille, atelectasis, aspiration, or pneumonia. Reviewed by: Asim Bourne MD on 08/15/2022 5:23 PM PDT Approved by: Asim Bourne MD on 08/15/2022 5:23 PM PDT Station ID: [id number]
[2022-08-15 17:27] LABS: PLATELET MORPHOLOGY NORMAL APPEARANCE (NORMAL)
[2022-08-15 17:28] LABS: PLATELET ESTIMATE, MANUAL NORMAL (130-450,000) (NORMAL); RBC MORPHOLOGY (MULTIPLE) NORMAL APPEARANCE (NORMAL); WBC MORPHOLOGY (MULTIPLE) NORMAL APPEARANCE (NORMAL)
[2022-08-15] MEDS ORDERED: cefTRIAXone 1 GM in SODIUM CHLORIDE 0.9% MINIBAG 100 ML IV STA (17:39)
[2022-08-15] MEDS ORDERED: AZITHROMYCIN INJ 500 MG in SODIUM CHLORIDE 0.9% 250 ML IV STA (17:39)
[2022-08-15] MEDS ORDERED: FUROSEMIDE 20 MG TABLET PO STA (17:43)
[2022-08-15 18:36] LABS: B. PARAPERTUSSIS- RESP PCR PAN NOT DETECTED; B. PERTUSSIS- RESP PCR PANEL NOT DETECTED; C. PNEUMONIAE- RESP PCR PANEL NOT DETECTED; CORONAVIRUS 229E-RESP PCR NOT DETECTED; CORONAVIRUS HKU1-RESP PCR NOT DETECTED; CORONAVIRUS NL63-RESP PCR NOT DETECTED; CORONAVIRUS OC43-RESP PCR NOT DETECTED; HUMAN METAPNEUMOVIRUS NOT DETECTED; INFLUENZA A- RESP PCR PANEL NOT DETECTED; INFLUENZA B - RESP PCR PANEL NOT DETECTED; M. PNEUMONIAE- RESP PCR PANEL NOT DETECTED; PARAINFLUENZA VIRUS 1 NOT DETECTED; PARAINFLUENZA VIRUS 2 NOT DETECTED; PARAINFLUENZA VIRUS 3 NOT DETECTED; PARAINFLUENZA VIRUS 4 NOT DETECTED; RHINOVIRUS/ENTEROVIRUS DETECTED; RSV- RESP PCR PANEL NOT DETECTED; SARS-CoV-2 -RESP PCR PANEL NOT DETECTED
[2022-08-15] MEDS ORDERED: SODIUM CHLORIDE FLUSH 0.9% 10 ML SYRINGE IVP PRN (19:50)
--- NOTE | 2022-08-15 20:05 | HISTORY & PHYSICAL EXAMINATION ---
Chief Complaint - Chief Complaint Chief Complaint: SOB History of Present Illness - History of Present Illness HPI Comment/Other: 71 y old female with PMH HTN, DM 2, HLP, CHF, Afib, morbid obesity, RADHA on CPAP at night presented with c/o SOB for one week which is progressively getting worse. As per pt, she returned from [place] and missed doses of lasix. C/O cough with yellow sputum.Denies fever, chest pain, nausea, vomiting, diarrhea. On presentaion, afebrile, Sao2 85% RA Labs showed WBC 15.3, BNP 234 COVID negative CXR showed opacity in right lung base In ER, pt was given Rocephin and zithromax and lasix Patient is admitted due to Acute respiratory failure due to Pneumonia and CHF exacerbation History - Past Medical History Cardiovascular: reports: Atrial fibrillation Respiratory: reports: Asthma, Shortness of breath Neuro: reports: None Endocrine/Autoimmune: reports: Type 2 diabetes, HyPOthyroidism GI: reports: None STRUCTURAL FITTER: reports: None : reports: None HEENT: reports: None Psych: reports: None Musculoskeletal: reports: Osteoarthritis Derm: reports: None MRSA Hx?: No - Past Surgical History HEENT: reports: Tonsil/Adenoidectomy Meds/Allgy - Home Medications Home Medications: Ambulatory Orders Medication Instructions Recorded Confirmed Albuterol Sulfate [Albuterol 0 11/12/18 Sulfate Hfa] Alendronate [Fosamax] 11/12/18 Atorvastatin Calcium 1 tab PO DAILY 11/12/18 11/12/18 Dabigatran Etexilate Mesylate 0 11/12/18 [Pradaxa] Diltiazem HCl [Dilt-Xr] 11/12/18 Fluticasone 44 Mcg [Flovent] 0 11/12/18 Levothyroxine Sodium 1 tab PO DAILY 11/12/18 11/12/18 Losartan [Cozaar] 0.5 tab PO BID 11/12/18 11/12/18 Metoprolol Succinate [Toprol Xl] 1 tab PO DAILY 11/12/18 11/12/18 Zolpidem [Ambien] 11/12/18 hydroCHLOROthiazide 1 tab PO DAILY 11/12/18 11/12/18 [Hydrochlorothiazide] metFORMIN [Glucophage] 1 tab PO BID 11/12/18 11/12/18 - Allergies Allergies/Adverse Reactions: Allergies Allergy/AdvReac Type Severity Reaction Status Date / Time acetaminophen [From Percocet] AdvReac Hallucinati Verified 08/15/22 17:10 ons codeine AdvReac Dizziness Verified 08/15/22 17:10 oxycodone [From Percocet] AdvReac Hallucinati Verified 08/15/22 17:10 ons Review of Systems - Other Findings Other Findings: 10 point systems were reviewed and were negative except metioned in HPI Exam - Vital Signs Vital Signs: Vital Signs x48h Temp Pulse Resp BP Pulse Ox O2 Flow Rate 08/15/22 19:09 77 16 135/85 H 92 6 08/15/22 17:26 86 21 160/103 H 91 L 08/15/22 17:06 74 22 6 08/15/22 17:04 36.9 C 79 24 160/108 H 90 L - Physical Exam General Appearance: positive: Mild distress Eyes Bilateral: positive: Normal inspection ENT: positive: ENT inspection nml Neck: positive: Nml inspection Respiratory: positive: Breath sounds nml Cardiovascular: positive: Irregularly irregular Abdomen: positive: Non-tender, Nml bowel sounds Skin: positive: No rash Extremities: positive: Pedal edema Neurologic/Psychiatric: positive: Oriented x3, Motor nml Conclusion/Plan - Lab Results Fish Bones: 08/15/22 16:59 08/15/22 16:59 - Other Other Results/Comments: A: Acute respiratory failure Pneumonia Acute on chronic CHF exacerbation, unspecified.EF unknown Leukocytosis Rhino virus infection HTN DM2 HLP Chronic atrial fibrillation Morbid obesity RADHA Lymphedema Plan; Admit in med surgery with tele Telemetry Follow cultures Start Rocephin and zithromax Duo neb q6h Lasix 40 mg iv q 12h Conr metoprolol and losartan Cont spironolactone Monitor I/O, electrolytes Start lantus and SSI cont atorvastatin Cont pradaxa and diltiazem CPAP at night supportive care DVT prophylaxic: On pradaxa Full code Pt will be admitted as inpatient as more than 2 midnight stay is expected
[2022-08-15] MEDS ORDERED: INSULIN GLARGINE-YFGN 300 UNIT/3 ML PEN SUBQ SCH (21:00)
[2022-08-15] MEDS ORDERED: DABIGATRAN 75 MG CAPSULE PO SCH (21:00)
[2022-08-15] MEDS ORDERED: FUROSEMIDE 40 MG/4 ML VIAL IVP SCH (21:00)
[2022-08-15] MEDS: INSULIN LISPRO 300 UNIT/3 ML PEN SUBQ SCH (21:57)
[2022-08-15] MEDS ORDERED: ACETAMINOPHEN 325 MG TABLET PO PRN (22:32)
[2022-08-15] MEDS: METOPROLOL TARTRATE 50 MG TABLET PO SCH (23:03)
[2022-08-16] MEDS: IPRATROPIUM/ALBUTEROL 3 ML NEB INH SCH ×2 (00:40→06:06)
[2022-08-16] MEDS: BENZOCAINE/MENTHOL LOZENGE MM PRN ×2 (01:09→06:53)
[2022-08-16] MEDS: SODIUM CHLORIDE FLUSH 0.9% 10 ML SYRINGE IVP SCH ×2 (01:10→08:15)
[2022-08-16] MEDS ORDERED: FUROSEMIDE 40 MG/4 ML VIAL IVP ONE (08:00)
[2022-08-16] MEDS: INSULIN LISPRO 300 UNIT/3 ML PEN SUBQ SCH (08:10)
[2022-08-16] MEDS: METOPROLOL TARTRATE 50 MG TABLET PO SCH (08:12)
[2022-08-16] MEDS ORDERED: IPRATROPIUM/ALBUTEROL 3 ML NEB INH PRN (08:13)
[2022-08-16 08:33] LABS: BASOPHILS % (AUTO) 0.3 %; EOSINOPHILS # (AUTO) 0.1 10^3/uL (0.0-0.7); HCT - HEMATOCRIT 39.8 % (37.0-47.0); HGB - HEMOGLOBIN 12.6 g/dL (12.0-16.0); LYMPHOCYTES # (AUTO) 0.5 10^3/uL (1.5-3.5); MEAN CORPUSCULAR HEMOGLOBIN 30.9 pg (27.0-31.0); MEAN CORPUSCULAR HGB CONC 31.7 g/dL (32.0-36.0); MEAN CORPUSCULAR VOLUME 97.5 fL (81.0-99.0); MEAN PLATELET VOLUME 8.8 fL (7.9-10.8); MONOCYTES # (AUTO) 1.3 10^3/uL (0.0-1.0); NEUTROPHILS # (AUTO) 11.3 10^3/uL (1.5-6.6); NEUTROPHILS % (AUTO) 84.3 %; PLT - PLATELET COUNT 323 10^3/uL (130-450); RED BLOOD COUNT 4.08 10^6/uL (4.20-5.40); RED CELL DISTRIBUTION WIDTH 14.2 % (12.0-15.0); WHITE BLOOD COUNT 13.3 x10^3/uL (4.8-10.8)
[2022-08-16 08:37] LABS: CALCIUM 8.7 mg/dL (8.5-10.3); CREATININE 0.9 mg/dL (0.4-1.0); POTASSIUM 3.7 mmol/L (3.5-5.0)
[2022-08-16] MEDS ORDERED: LOSARTAN 50 MG TABLET PO SCH (09:00)
[2022-08-16] MEDS ORDERED: ATORVASTATIN 10 MG TABLET PO SCH ×2 (09:00→21:00)
[2022-08-16] MEDS ORDERED: FUROSEMIDE 20 MG TABLET PO SCH (09:00)
[2022-08-16] MEDS ORDERED: diltiaZEM CD 120 MG CAPSULE PO SCH (09:00)
[2022-08-16] MEDS ORDERED: cefTRIAXone 1 GM in SODIUM CHLORIDE 0.9% MINIBAG 100 ML IV SCH (09:00)
[2022-08-16] MEDS ORDERED: SPIRONOLACTONE 25 MG TABLET PO SCH (09:00)
[2022-08-16] MEDS ORDERED: APIXABAN 5 MG TABLET PO SCH (09:00)
--- NOTE | 2022-08-16 10:44 | Discharge Plan ---
Discharge Plan Problem Reviewed?: Yes Disposition: Home, Self Care Condition: Fair Prescriptions: levoFLOXacin [Levaquin] 750 mg PO QD #15 tablet guaiFENesin [Mucinex] 600 mg PO BID #14 tablet Lactobacillus Combination No.4 [Probiotic] 1 each PO DAILY #5 cap Diet: Low Sodium Activity Restrictions: Activity as Tolerated Shower Restrictions: No Driving Restrictions: No Assistance Devices: Walker Weight Bearing: Full Weight Health Concerns: You were admitted to the hospital to treat your low oxygen level caused by RSV bronchitis, and a pneumonia, and from skipping some Lasix water pill lately. IV antibiotics and supplemental oxygen were started. You are being discharged home, since you are able to take oral antibiotics, oral Mucinex to help expectorate the phlegm, and you already have a home oxygen machine. You are being discharged home to take a full course of Levaquin antibiotic pills for 5 days, a probiotic to prevent diarrhea, for 5 days and Mucinex expectorant twice a day. The new prescriptions were electronically sent to your [facility] pharmacy in [place]. Please take Lasix 40 mg today, tomorrow and Thursday, then resume your usual 20 mg daily dose after that. Please resume your usual Pradaxa, take the morning dose when you get home, and twice a day, as prescribed. Please resume all your other usual medications as prescribed. You were tested to see how much daytime oxygen you need, and it should be set at 3 L/min at rest and 6 L/min with activity. Then the nighttime oxygen in your CPAP device can remain the same as you always have been doing. Our Respiratory Therapist has informed your [employer] of these oxygen needs. Please see your primary care provider in the next 5 to 10 days for hospital follow-up visit. Plan of Treatment: As above. Care Goals: Improvement in symptoms and stabilization are the goals. Assessment: The patient understands and is agreeable with the plan. Additional Instructions or Follow Up instructions: If you have new or worsening symptoms, call your Primary Care Provider for advice, or come to the ER. No Smoking: If you smoke, Please STOP! Call for help. Follow-up with: Juan Ugalde ARNP [Primary Care Provider] -
[2022-08-16] MEDS ORDERED: IPRATROPIUM/ALBUTEROL 3 ML NEB INH SCH (11:00)
--- NOTE | 2022-08-16 11:09 | DISCHARGE SUMMARY ---
Discharge Summary Admit Date: 08/15/22 Discharge Date: 08/16/22 Discharging Provider: Dominga Salinas MD Primary Care Provider: MAME Robin Condition at Discharge: Fair Discharge Disposition: 01 Home, Self Care - HPI History of Present Illness: 71 y old female with PMH HTN, DM 2, HLP, CHF, Afib, morbid obesity, RADHA on CPAP at night, presented with c/o SOB for one week which is progressively getting worse. As per pt, she returned from [place] and skipped doses of Lasix while flying. C/O cough with yellow sputum. Denies fever, chest pain, nausea, vomiting, diarrhea. On presentaion, she is afebrile, SaO2 is 85% on room air, Labs showed WBC 15.3, BNP 234, COVID negative, CXR showed opacity in right lung base, and she tested Rhino virus (+). In ER, pt was given suppl O2, Rocephin and Zithromax and IV Lasix. Patient is being admitted due to Acute respiratory failure with hypoxia, caused by Pneumonia and CHF exacerbation. - HOSPITAL COURSE Hospital Course: 1) Acute respiratory failure with hypoxia We continued her on suppl O2 and treated the pneumonia and CHF. By the following day, she felt better and revealed that she uses portable O2 when she goes on airplane trips (as she just did). She asked if she can use that home O2 and keep getting antibx treatment orally, and be discharged home. She was tested to see how much daytime oxygen was needed, and it was ordered to be set at 3 L/min at rest and 6 L/min with activity. The nighttime oxygen, bled into her CPAP device, could remain the same as she always did. Our Respiratory Therapist was able to inform her [employer] of these oxygen needs, for a possible oxygen tank to go to her home. She was therefore unexpectedly able to be discharged to home, on new oral antibiotics and on an adjusted Lasix dose, and with instructions about O2 use. 2) Pneumonia She was ordered to get iv Ceftriaxone and iv Zithromax. When the new plan to discharge to home developed, she was prescribed to take a course of Levaquin antibiotic pills for 5 days, and a probiotic to prevent diarrhea. 3) CHF exacerbation She admitted that she had not taken Lasix because of the air travel she recently took. We ordered iv BID Lasix. Her EF is unknown; we have no Echos here. An Echo was planned. However, she was discharged before that was done. On the day of discharge, she was instructed to take Lasix 40 mg that day and for 2 days more, before returning to her usual Lasix 20 mg daily dose. Adhering to a proper diet was also discussed. 4) Chronic atrial fibrillation Her HR was stable. We continued her usual meds. 5) Rhino virus infection We ordered symptomatic treatment with Mucinex at discharge, and respiratory/infectious isolation while here. 6) HTN We continued her usual meds. 7) DM2 We ordered a diabetic diet and continued her usual meds. 8) Morbid obesity, BMI 60-69 This complicates her care. 9) RADHA on CPAP We ordered the CPAP device to be used while here. 10) Lymphedema As per Hx. We ordered resumption of her Lasix. - ALLERGIES Allergies/Adverse Reactions: Allergies Allergy/AdvReac Type Severity Reaction Status Date / Time acetaminophen [From Percocet] AdvReac Hallucinati Verified 08/15/22 17:10 ons codeine AdvReac Dizziness Verified 08/15/22 17:10 oxycodone [From Percocet] AdvReac Hallucinati Verified 08/15/22 17:10 ons - MEDICATIONS Home Medications: Ambulatory Orders Medication Instructions Recorded Confirmed Albuterol Sulfate [Albuterol 0 11/12/18 Sulfate Hfa] Alendronate [Fosamax] 11/12/18 Atorvastatin Calcium 1 tab PO DAILY 11/12/18 11/12/18 Dabigatran Etexilate Mesylate 0 11/12/18 [Pradaxa] Diltiazem HCl [Dilt-Xr] 11/12/18 Fluticasone 44 Mcg [Flovent] 0 11/12/18 Levothyroxine Sodium 1 tab PO DAILY 11/12/18 11/12/18 Losartan [Cozaar] 0.5 tab PO BID 11/12/18 11/12/18 Metoprolol Succinate [Toprol Xl] 1 tab PO DAILY 11/12/18 11/12/18 Zolpidem [Ambien] 11/12/18 hydroCHLOROthiazide 1 tab PO DAILY 11/12/18 11/12/18 [Hydrochlorothiazide] metFORMIN [Glucophage] 1 tab PO BID 11/12/18 11/12/18 Lactobacillus Combination No.4 1 each PO DAILY #5 cap 08/16/22 [Probiotic] Spironolactone [Aldactone] 25 mg PO DAILY tab 08/16/22 guaiFENesin [Mucinex] 600 mg PO BID #14 tablet 08/16/22 levoFLOXacin [Levaquin] 750 mg PO QD #15 tablet 08/16/22 - PHYSICAL EXAM AT DISCHARGE General Appearance: positive: No acute distress (wearing O2 n.c.), Alert, Other (Morbidly obese) Eyes Bilateral: positive: Normal inspection, EOMI ENT: positive: ENT inspection nml, No signs of dehydration Neck: positive: Nml inspection, Other (Cannot evaluate JVP due to morbid obesity.) Respiratory: positive: No respiratory distress, Rhonchi (at both bases), Other (Poor air movement) Cardiovascular: positive: Regular rate & rhythm, Other (Distant heart sounds due to morbid obesity and large breasts.) Abdomen: positive: Non-tender, Other (Obese, with a very large pannus down to her knees.) Skin: positive: Warm, Dry Extremities: positive: Non-tender, Other (1-2+ edema to knees) Neurologic/Psychiatric: positive: Oriented x3, Motor nml - LABS Result Diagrams: 08/16/22 08:24 08/16/22 08:24 - DIAGNOSTIC IMAGING Diagnostic Imaging Results: Final report reviewed - FOLLOW UP Follow Up: See PCP in 5-10 days, for a hospital F/U office visit. - TIME SPENT Time Spent in Discharge (Minutes): 45
[2022-08-16 11:38] VITALS: BP 115/63
[2022-08-16 13:22] LABS: ESTIMATED AVERAGE GLUCOSE 140 mg/dL (70-100); HEMOGLOBIN A1c% 6.5 % (4.27-6.07)
[2022-08-16] MEDS ORDERED: FUROSEMIDE 40 MG/4 ML VIAL IVP SCH (14:00)
[2022-08-16] MEDS ORDERED: AZITHROMYCIN INJ 500 MG in SODIUM CHLORIDE 0.9% 250 ML IV SCH (18:30)
== END 2022-08-16 11:59 | disposition home or self-care (01) | DRG 193 ==
LOC: EDUNIT# → ED 16:45 → MS2 19:50
PROVIDERS: ADMIT Internal Medicine; ATTEND Internal Medicine
DX: J18.9 Pneumonia, unspecified organism (principal); J96.01 Acute respiratory failure with hypoxia; I48.91 Unspecified atrial fibrillation; B97.89 Other viral agents as the cause of diseases classified elsewhere; I48.20 Chronic atrial fibrillation, unspecified; Z68.43 Body mass index [BMI] 50.0-59.9, adult; Z68.44 Body mass index [BMI] 60.0-69.9, adult; I11.0 Hypertensive heart disease with heart failure; I50.9 Heart failure, unspecified; E66.01 Morbid (severe) obesity due to excess calories; Z20.822 Contact with and (suspected) exposure to COVID-19; G47.33 Obstructive sleep apnea (adult) (pediatric); I89.0 Lymphedema, not elsewhere classified; E78.5 Hyperlipidemia, unspecified; E11.9 Type 2 diabetes mellitus without complications; E03.9 Hypothyroidism, unspecified; J45.909 Unspecified asthma, uncomplicated; J20.6 Acute bronchitis due to rhinovirus; T50.1X6A Underdosing of loop [high-ceiling] diuretics, initial encounter; Z91.128 Patient's intentional underdosing of medication regimen for other reason; Z79.01 Long term (current) use of anticoagulants; Z79.84 Long term (current) use of oral hypoglycemic drugs
CPT/HCPCS: 36415; 71045; 80048; 80053; 82803; 83036; 83605; 83690; 83735; 83880; 84100; 85025; 87040; 87633; 93005; 94640; 94761; 96365; 96367; 99285; A9270; J1815

== ENCOUNTER 2022-11-03 14:51 | Outpatient (CLI) | payer OTHER | END 2022-11-03 23:59 | disposition EMS.NT | LOC: EMS 14:51 → MERGE 14:51 → EDBD 22:19 → EMS 22:19 | DX: M53.3 Sacrococcygeal disorders, not elsewhere classified (principal); W18.39XA Other fall on same level, initial encounter; Y92.000 Kitchen of unspecified non-institutional (private) residence as the place of occurrence of the external cause ==

== ENCOUNTER 2023-03-18 08:00 | Outpatient (CLI) | payer MEDICARE, OTHER | END 2023-03-18 23:59 | disposition home or self-care (01) | LOC: LAB.R 08:00 | PROVIDERS: ATTEND Podiatrist | DX: E11.622 Type 2 diabetes mellitus with other skin ulcer (principal) | CPT/HCPCS: 87070; 87181; 87205 ==

== ENCOUNTER 2023-03-31 08:00 | Outpatient (CLI) | payer MEDICARE, OTHER | END 2023-03-31 23:59 | disposition home or self-care (01) | LOC: LAB.R 08:00 | PROVIDERS: ATTEND Podiatrist | DX: E11.622 Type 2 diabetes mellitus with other skin ulcer (principal) | CPT/HCPCS: 87070; 87205 ==

== ENCOUNTER 2023-05-07 15:46 | Outpatient (CLI) | payer MEDICARE, OTHER ==
[2023-05-07 17:37] LABS: CREATININE 0.9 mg/dL (0.6-1.3); POTASSIUM 4.4 mmol/L (3.5-4.5)
== END 2023-05-07 15:47 | disposition home or self-care (01) ==
LOC: LAB 15:46
PROVIDERS: ATTEND Internal Medicine Cardiovascular Disease
DX: I48.21 Permanent atrial fibrillation (principal)
CPT/HCPCS: 36415; 80048

== ENCOUNTER 2025-03-09 12:19 | Inpatient (IN) ==
--- NOTE | 2025-03-09 12:36 | ED Physician Documentation ---
History of Present Illness Stated complaint Stated Complaint: SOA Chief complaint Chief Complaint: Resp History obtained from History obtained from: Patient and EMS Additonal information Additional information: The patient comes to the emergency department chief complaint of shortness of breath. She states that she was diagnosed with rhinovirus couple of days ago and her has been sick with it. She has a history of asthma and congestive heart failure and has been using Lasix and her inhalers and oxygen at home. She states her concentrator only goes up to 5 L and she just feels like she is not getting enough oxygen. However, she has not been able to breathe through her nose. The patient states that she feels a little winded when she talks. She denies any swelling in her legs. No fevers. She states that she has a productive cough. She feels a little better in general than she did a couple days ago but feels like her breathing is at least as bad. No other complaints at this time. No chest pain. No GI symptoms. Meds/Allgy Home Medications Ambulatory Orders Medication Instructions Recorded Confirmed albuterol sulfate 90 mcg/actuation 2 puff inhalation Q 4H PRN 11/12/18 03/07/25 aerosol inhaler shortness of breath or wheez ing alendronate 70 mg tablet 70 mg PO ONCE 11/12/1803/07 atorvastatin 40 mg tablet 1 tab PO DAILY 11/12/1802/22 dabigatran etexilate 75 mg capsule 75 mg PO BID 03/07/25 (Pradaxa) diltiazem HCl 240 mg 240 mg PO Q24H 11/12/1802/22 capsule,extended release 24 hr, controlled (DILT-XR) hydrochlorothiazide 25 mg tablet 1 tab PO DAILY 03/07/25 levothyroxine 175 mcg tablet 1 tab PO DAILY 11/12/18 losartan 50 mg tablet 0.5 tab PO BID 11/12/1802/22 metformin 500 mg tablet 1 tab PO BID 11/12/18 metoprolol succinate 200 mg 1 tab PO DAILY 11/12/18 tablet,extended release 24 hr (Toprol XL) zolpidem 5 mg tablet 5 mg PO ONCE PRN insomnia 03/07/25 guaifenesin 600 mg tablet, 600 mg PO BID #14 tabs 07/2403/07/25 extended release 12 hr (Mucinex) levofloxacin 250 mg tablet 750 mg (3 x 250 mg) PO QD # 15 tabs 08/16/22 03/07/25 spironolactone 25 mg tablet 25 mg PO DAILY 08/16/22 furosemide 20 mg tablet 20 mg PO ONCE 03/07/2503/07 montelukast 10 mg tablet mg 03/07/25 Allergies Allergies Allergy/AdvReac Type Severity Reaction Status Date / Time acetaminophen (From Percocet) AdvReac Hallucinati Verified 03/09/25 12:26 ons codeine AdvReac Dizziness Verified 03/09/25 12:26 oxycodone (From Percocet) AdvReac Hallucinati Verified 03/09/25 12:26 ons PFSH Active Problems All Active Problems (Updated 03/09/25 @ 13:31 by Susan Nunn MD) Hypoxia (Acute) Rhinovirus infection (Acute) Pneumonia (Acute) Acute exacerbation of CHF (congestive heart failure) (Acute) Acute on chronic hypoxic respiratory failure (Acute) Congestive heart failure (Acute) Pneumonia (Acute) Rhinovirus (Acute) Morbid obesity (Acute) Respiratory failure (Acute) Social History Social History Number of Years Smoked: 20 How many cigarettes a day do you smoke? (20 cigarettes=1 Pk): 15 Do you dip or chew tobacco?: No Do you feel safe in your home environment?: Yes History of physical, verbal, emotional, or financial abuse?: No Frequency: Occasional Exam Exam Vital Signs: Vital Signs x48h Temp Pulse Resp BP Pulse Ox O2 Flow Rate 03/09/25 13:05 89 L 7 03/09/25 13:00 86 L 4.5 03/09/25 12:24 36.9 C 118 H 18 127/69 85 L 4 Constitutional normal general appearance and no apparent distress HENMT normocephalic, head/scalp atraumatic, external nose normal and oral mucous memb ranes normal Eyes EOMs intact bilaterally Neck/C-Spine visual inspection normal and supple Respiratory breath sounds equal bilaterally and normal respiratory effort Patient speaks in full sentences without difficulty. Rales and rhonchi in left lung, especially lower half, minimal Accessory sounds in right lung. Cardiovascular normal heart rate noted, regular rhythm noted and no edema Gastrointestinal abdomen normal to inspection, abdomen soft to palpation, nontender to palpation and nondistended Genitourinary no CVA tenderness Extremities normal to inspection Neurology Alert, grossly intact Psychiatry mental status grossly normal Skin skin color normal Results Vitals Vitals: Vital Signs - 24 hr 03/09/25 12:24 03/09/25 13:00 03/09/25 13:05 Temperature 36.9 C Temperature Source Temporal Artery Scan Pulse Rate 118 H Respiratory Rate 18 Blood Pressure 127/69 O2 Saturation 85 L 86 L 89 L O2 Source Nasal cannula Oxymask Oxymask If not protocol: Oxygen Flow, liters/minute 4 4.5 7 Pain Intensity 0 Oxygen O2 Source Oxymask Labs Labs: Laboratory Tests 03/09/25 12:46 WBC 12.5 H RBC 4.30 Hgb 12.9 Hct 41.2 MCV 95.8 MCH 30.0 MCHC 31.3 L RDW 14.0 Plt Count 351 MPV 9.0 Neut # (Auto) 9.9 H Lymph # (Auto) 1.1 L Delta # (Auto) 1.3 H Eos # (Auto) 0.2 Baso # (Auto) 0.1 Absolute Nucleated RBC 0.00 Nucleated RBC % 0.0 Sodium 134 L Potassium 3.8 Chloride 99 L Carbon Dioxide 28 Anion Gap 7.0 BUN 17 Creatinine 0.7 Estimated GFR (MDRD) 81 L Glucose 139 H Calcium 9.8 Total Bilirubin 0.8 AST 14 ALT 12 Alkaline Phosphatase 112 B-Natriuretic Peptide 172 H Total Protein 7.6 Albumin 3.7 Globulin 3.9 Albumin/Globulin Ratio 0.9 L Lipase < 10 L PD Medical Decision Making ED course Complexity details: reviewed old records, reviewed results, re-evaluated patient, considered differential and d/w patient ED course: The patient was worked up with labs, EKG, and chest x-ray. She had already received continuous nebs and route and Solu-Medrol 125 mg IV. White blood cell count was fairly stable at 12.5 today compared with 12 2 days ago. The patient was found to have the appearance of edema on her chest x-ray though radiologist stated could not rule out infection as well. She was given an IV dose of Lasix 60 mg and Rocephin and Zithromax IV as well. The patient was not in obvious respiratory distress but her oxygen saturation with good pleth was 89% on 7 L here in the emergency department via oxime mask. I felt she should be admitted to the hospital. I spoke with the hospitalist who agreed to admit the patient to his service. Patient is agreeable to the plan. Discharge Plan Discharge Patient Disposition: [facility] DC/Xfer Condition: Serious Clinical Impression: Rhinovirus infection, Hypoxia Acute exacerbation of CHF (congestive heart failure) Qualifiers: Heart failure type: unspecified Qualified Code(s): I50.9 - Heart failure, unspecified Pneumonia Qualifiers: Pneumonia type: due to unspecified organism Laterality: right Lung location: lower lobe of lung Qualified Code(s): J18.9 - Pneumonia, unspecified organism Prescriptions: No Action losartan 50 MG tablet 0.5 tab PO BID metformin 500 MG tablet 1 tab PO BID diltiazem HCl [DILT-XR] 240 capsule,ext.rel 24h degradable 240 mg PO Q24H alendronate 70 MG tablet 70 mg PO ONCE hydrochlorothiazide 25 MG tablet 1 tab PO DAILY zolpidem 5 MG tablet 5 mg PO ONCE PRN (Reason: insomnia) atorvastatin 40 MG tablet 1 tab PO DAILY levothyroxine 175 tablet 1 tab PO DAILY metoprolol succinate [Toprol XL] 200 MG tablet extended release 24 hr 1 tab PO DAILY dabigatran etexilate [Pradaxa] 75 MG capsule 75 mg PO BID albuterol sulfate 8.5 GM HFA aerosol inhaler 2 puff inhalation Q4H PRN (Reason: shortness of breath or wheezing) spironolactone 25 MG tablet 25 mg PO DAILY 0RF guaifenesin [Mucinex] 600 MG tablet extended release 12hr 600 mg PO BID Qty: 14 0RF levofloxacin 250 MG tablet 750 mg PO QD Qty: 15 0RF montelukast 10 mg tablet Patient Comments: TAKE 1 TABLET BY MOUTH EVERY DAY furosemide 20 mg tablet 20 mg PO ONCE Print Language: French
--- OUTSIDE RECORDS SUMMARY | 2025-03-09 12:51 | EXTERNAL MEDICAL SUMMARY RPT | Continuity of Care Document ---
Author Organization [facility] Address [address] [place] [id number] Phone Problems date description facility 2025-03-09 08:36 Cough, unspecified [facility] 2025-03-09 08:36 Shortness of breath [facility] 2025-03-09 08:36 Other forms of dyspnea [facility] 2025-03-09 08:36 Fever, unspecified [facility] Results/Labs test date facility value unit notes Result panel 1 NUCLEATED RED BLOOD CELLS AUTO 2025-03-07 11:15 [facility] 0.0 /100wbc (missing) NRBC ABSOLUTE COUNT (AUTO) 2025-03-07 11:15 [facility] 0.00 x10 3/ul (missing) BASOPHILS # (AUTO) 2025-03-07 11:15 [facility] 0.1 10 3/ul (missing) EOSINOPHILS # (AUTO) 2025-03-07 11:15 [facility] 0.2 10 3/ul (missing) VBG BASE EXCESS 2025-03-07 11:15 [facility] 0.2 mmol/l (missing) LYMPHOCYTES # (AUTO) 2025-03-07 11:15 [facility] 0.6 10 3/ul (missing) BILIRUBIN,TOTAL 2025-03-07 11:15 [facility] 0.6 mg/dl As of November 2022 testing method has changed, this may include reference ranges. CREATININE 2025-03-07 11:15 [facility] 0.8 mg/dl As of November 2022 testing method has changed, this may include reference ranges. ALBUMIN/GLOBULIN RATIO 2025-03-07 11:15 [facility] 0.9 (missing) (missing) MONOCYTES # (AUTO) 2025-03-07 11:15 [facility] 1.4 10 3/ul (missing) CHLORIDE 2025-03-07 11:15 [facility] 101 mmol/l As of November 2022 testing method has changed, this may include reference ranges. ALT ALANINE AMINOTRANSFERASE 2025-03-07 11:15 [facility] 11 iu/l As of November 2022 testing method has changed, this may include reference ranges. ALKALINE PHOSPHATASE 2025-03-07 11:15 [facility] 112 iu/l As of November 2022 testing method has changed, this may include reference ranges. WHITE BLOOD COUNT 2025-03-07 11:15 [facility] 12.0 x10 3/ul (missing) HGB - HEMOGLOBIN 2025-03-07 11:15 [facility] 12.8 g/dl (missing) AST ASPARTATE AMINOTRANSFERASE 2025-03-07 11:15 [facility] 13 iu/l As of November 2022 testing method has changed, this may include reference ranges. RED CELL DISTRIBUTION WIDTH 2025-03-07 11:15 [facility] 13.8 % (missing) SODIUM 2025-03-07 11:15 [facility] 133 mmol/l (missing) GLUCOSE 2025-03-07 11:15 [facility] 146 mg/dl As of November 2022 testing method has changed, this may include reference ranges. BUN - BLOOD UREA NITROGEN 2025-03-07 11:15 [facility] 15 mg/dl As of November 2022 testing method has changed, this may include reference ranges. VBG HCO3 2025-03-07 11:15 [facility] 25.9 mmol/l (missing) CARBON DIOXIDE - CO2 2025-03-07 11:15 [facility] 27 mmol/l As of November 2022 testing method has changed, this may include reference ranges. [facility]BG TOTAL CO2 2025-03-07 11:15 [facility] 27.3 mmol/l (missing) ALBUMIN 2025-03-07 11:15 [facility] 3.8 g/dl As of November 2022 testing method has changed, this may include reference ranges. MEAN CORPUSCULAR HEMOGLOBIN 2025-03-07 11:15 [facility] 30.5 pg (missing) MEAN CORPUSCULAR HGB CONC 2025-03-07 11:15 [facility] 31.9 g/dl (missing) BNP - B-NATRIURETIC PEPTIDE 2025-03-07 11:15 [facility] 349 pg/ml (missing) PLT - PLATELET COUNT 2025-03-07 11:15 [facility] 356 10 3/ul (missing) GLOBULIN 2025-03-07 11:15 [facility] 4.2 g/dl (missing) RED BLOOD COUNT 2025-03-07 11:15 [facility] 4.20 10 6/ul (missing) POTASSIUM 2025-03-07 11:15 [facility] 4.3 mmol/l As of November 2022 testing method has changed, this may include reference ranges. HCT - HEMATOCRIT 2025-03-07 11:15 [facility] 40.1 % (missing) VBG PCO2 2025-03-07 11:15 [facility] 46.2 mmhg (missing) ANION GAP 2025-03-07 11:15 [facility] 5.0 (missing) (missing) VBG PO2 2025-03-07 11:15 [facility] 53.5 mmhg (missing) VBG PH 2025-03-07 11:15 [facility] 7.353 (missing) (missing) GFR - MDRD 2025-03-07 11:15 [facility] 70 (missing) The IDMS-traceable MDRD Study Equation has been validated extensively in and populations between the ages of 18 and 70 with impaired kidney function (eGFR < 60 mL/min/1.73m2) and has shown good performance for patients with all common causes of kidney disease. Although this equation has not been validated for patients older than 70, an MDRD-derived eGFR may still be a useful tool for providers caring for patients older than 70. References: http://www.nkdep. nih.gov/lab-evalu ation/gfr/creatin ine-stand ardization, last updated July 2011. [facility] OXYGEN SATURATION 2025-03-07 11:15 [facility] 79.0 % (missing) TOTAL PROTEIN 2025-03-07 11:15 [facility] 8.0 g/dl As of November 2022 testing method has changed, this may include reference ranges. MEAN PLATELET VOLUME 2025-03-07 11:15 [facility] 8.7 fl (missing) NEUTROPHILS # (AUTO) 2025-03-07 [facility] 9.7 10 3/ul (missing) CALCIUM 2025-03-07 11:[facility] 9.[facility] mg/dl As of November 2022 testing method has changed, this may include reference ranges. MEAN CORPUSCULAR VOLUME 2025-03-07 11:15 [facility] 95.5 fl (missing) Result panel 2 RHINOVIRUS/ENTEROVIRUS 2025-03-07 11:24 [facility] DETECTED (missing) Human Rhinovirus/Enterovirus detected by the Family[employer] RP2.1 Panel, a multiplexed nucleic acid test intended for the simultaneous qualitative detection and differentiation of nucleic acids from multiple viral and bacterial respiratory organisms. SARS-CoV-2 -RESP PCR PANEL 2025-03-07 11:24 [facility] NOT DETECTED (missing) A negative test result for this test indicates that SARS-CoV-2 RNA was not present in the specimen above the limit of detection. Testing performed on the BioFire RP2.1 Panel, a multiplexed nucleic acid repiratory panel. Negative results do not preclude infection with SARS-CoV-2 virus and should not be the sole basis of a patient management decision. In some patients repeat testing at various time points may be necessary for virus detection. False-negative results may arise from improper sample collection, degradation of viral RNA during shipping or storage, the presence of PCR inhibitors, and/or mutation in the SARS-CoV-2 virus. INFLUENZA A- RESP PCR PANEL 2025-03-07 11:24 [facility] NOT DETECTED (missing) Influenza A including subtypes H1, H3, and H1-2009 not detected by the [employer] RP2.1 Panel, a multiplexed nucleic acid test intended for the simultaneous qualitative detection and differentiation of nucleic acids from multiple viral and bacterial respiratory organisms. B. PARAPERTUSSIS- RESP PCR SAUNDERS 2025-03-07 11:24 [facility] NOT DETECTED (missing) Negative results for this organism do not preclude infection with this organism and may require additional laboratory testing (e.g., bacterial and viral culture, immunofluorescence, and radiography) when evaluating a patient with possible respiratory tract infection. B. PERTUSSIS- RESP PCR PANEL 2025-03-07 11:24 [facility] NOT DETECTED (missing) Negative results for this organism do not preclude infection with this organism and may require additional laboratory testing (e.g., bacterial and viral culture, immunofluorescence, and radiography) when evaluating a patient with possible respiratory tract infection. C. PNEUMONIAE- RESP PCR PANEL 2025-03-07 11:24 [facility] NOT DETECTED (missing) Negative results for this organism do not preclude infection with this organism and may require additional laboratory testing (e.g., bacterial and viral culture, immunofluorescence, and radiography) when evaluating a patient with possible respiratory tract infection. M. PNEUMONIAE- RESP PCR PANEL 2025-03-07 11:24 [facility] NOT DETECTED (missing) Negative results for this organism do not preclude infection with this organism and may require additional laboratory testing (e.g., bacterial and viral culture, immunofluorescence, and radiography) when evaluating a patient with possible respiratory tract infection. CORONAVIRUS 229E-RESP PCR 2025-03-07 11:24 [facility] NOT DETECTED (missing) Negative results in the setting ofa respiratory illness may be due to infection with pathogens not detected by this test, or lower respiratory tract infection that may not be detected by nasopharyngeal specimen. CORONAVIRUS HKU1-RESP PCR 2025-03-07 11:24 [facility] NOT DETECTED (missing) Negative results in the setting ofa respiratory illness may be due to infection with pathogens not detected by this test, or lower respiratory tract infection that may not be detected by nasopharyngeal specimen. CORONAVIRUS [id number] PCR 2025-03-07 11:24 [facility] NOT DETECTED (missing) Negative results in the setting ofa respiratory illness may be due to infection with pathogens not detected by this test, or lower respiratory tract infection that may not be detected by nasopharyngeal specimen. CORONAVIRUS OF00-ODIU PCR 2025-03-07 11:24 [facility] NOT DETECTED (missing) Negative results in the setting ofa respiratory illness may be due to infection with pathogens not detected by this test, or lower respiratory tract infection that may not be detected by nasopharyngeal specimen. HUMAN METAPNEUMOVIRUS 2025-03-07 11:24 [facility] NOT DETECTED (missing) Negative results in the setting ofa respiratory illness may be due to infection with pathogens not detected by this test, or lower respiratory tract infection that may not be detected by nasopharyngeal specimen. INFLUENZA B - RESP PCR PANEL 2025-03-07 11:24 [facility] NOT DETECTED (missing) Negative results in the setting ofa respiratory illness may be due to infection with pathogens not detected by this test, or lower respiratory tract infection that may not be detected by nasopharyngeal specimen. PARAINFLUENZA VIRUS 1 2025-03-07 11:24 [facility] NOT DETECTED (missing) Negative results in the setting ofa respiratory illness may be due to infection with pathogens not detected by this test, or lower respiratory tract infection that may not be detected by nasopharyngeal specimen. PARAINFLUENZA VIRUS 2 2025-03-07 11:24 [facility] NOT DETECTED (missing) Negative results in the setting ofa respiratory illness may be due to infection with pathogens not detected by this test, or lower respiratory tract infection that may not be detected by nasopharyngeal specimen. PARAINFLUENZA VIRUS 3 2025-03-07 11:24 [facility] NOT DET[facility] (missing) Negative results in the setting ofa respiratory illness may be due to infection with pathogens not detected by this test, or lower respiratory tract infection that may not be detected by nasopharyngeal specimen. PARAINFLUENZA VIRUS 4 2025-03-07 11:24 [facility] NOT DETECTED (missing) Negative results in the setting ofa respiratory illness may be due to infection with pathogens not detected by this test, or lower respiratory tract infection that may not be detected by nasopharyngeal specimen. RSV- RESP PCR PANEL 2025-03-07 11:24 [facility] NOT DETECTED (missing) Negative results in the setting ofa respiratory illness may be due to infection with pathogens not detected by this test, or lower respiratory tract infection that may not be detected by nasopharyngeal specimen. ADENOVIRUS - RESP PCR PANEL 2025-03-07 11:[facility] NOT DETECTED (missing) YES Y NO YES [id number] NO NO NO NO Negative results in the setting ofa respiratory illness may be due to infection with pathogens not detected by this test, or lower respiratory tract infection that may not be detected by nasopharyngeal specimen. Social History date description facility
[2025-03-09 12:54] LABS: HCT - HEMATOCRIT 41.2 % (37.0-47.0); HGB - HEMOGLOBIN 12.9 g/dL (12.0-16.0); MEAN PLATELET VOLUME 9.0 fL (7.9-10.8); NRBC ABSOLUTE COUNT (AUTO) 0.00 x10^3/uL; NUCLEATED RED BLOOD CELLS AUTO 0.0 /100WBC; PLT - PLATELET COUNT 351 10^3/uL (130-450); RED CELL DISTRIBUTION WIDTH 14.0 % (12.0-15.0)
[2025-03-09 13:03] LABS: ALT ALANINE AMINOTRANSFERASE 12 IU/L (10-60); AST ASPARTATE AMINOTRANSFERASE 14 IU/L (10-42); BUN - BLOOD UREA NITROGEN 17 mg/dL (6-20); CARBON DIOXIDE - CO2 28 mmol/L (21-32); CREATININE 0.7 mg/dL (0.6-1.3); GFR - MDRD 81 (>89)
--- NOTE | 2025-03-09 13:03 | XRAY Report ---
PROCEDURE: XR Chest 1V INDICATIONS: sob, hypoxia TECHNIQUE: One view of the chest was acquired. COMPARISON: 03/07/2025 FINDINGS AND IMPRESSION: Low lung volumes. Small bilateral pleural effusions. Moderately diffuse prominence of the interstitium, likely edema. Differential includes infection. Borderline cardiomegaly. Degenerative osseous changes. Reviewed by: Rene Reich MD on 03/09/2025 1:00 PM PDT Approved by: Rene Reich MD on 03/09/2025 1:00 PM PDT Station ID: [id number]
--- NOTE | 2025-03-09 13:24 | HISTORY & PHYSICAL EXAMINATION ---
Chief Complaint Chief Complaint Chief Complaint: Dyspnea History of Present Illness Admitted From Admitted From:: ED History Obtained From Records Reviewed: [facility] History obtained from: EMR, Patient History of Present Illness HPI Comment/Other: Very pleasant 74-year-old female with past medical history of class III obesity, HTN, T2DM, CHF, A-fib on DOAC, RADHA on CPAP who presents to the ED with dyspnea. She was seen just a couple of days ago in the ED for similar symptoms. Treated for acute exacerbation of congestive heart failure. Her symptoms improved enough to where she was able to go home at that time, but she did not want to come to the hospital. She returns with ongoing and worsening symptoms. She is found to be hypoxemic in the ER, and utilizing up to 7 L of oxygen to maintain normal saturations. Patient tells me that she began experiencing dyspnea approximately 4 days prior to arrival. She is not been having any alan fevers or rigors at home, but she has noticed increased cough perhaps over the last month. Does not note any increased dyspnea on exertion. She normally ambulates with a walker. She has not noticed any increased orthopnea. Has a history of heart failure exacerbations and had a episode several years ago where she needed to be hospitalized and received IV diuresis. At that time, she started a low-sodium diet, and since lost 60 pounds of water weight and has not had much change in her weight by her recollection. Over the last 4 days, she has had a more productive cough. She is coughing up copious amounts of sputum. She does not carry a diagnosis of COPD, and is a former smoker. She does have a history of asthma asthma and CHF overlap. She takes montelukast with symptom driven albuterol. Otherwise denies abdominal pain, nausea, vomiting, diarrhea. Denies any new swelling in her lower extremities. Of note she received a breathing treatment and Solu-Medrol in the ambulance. Patient is full code, we had an extensive advance care planning conversation. Please see separate note from today. Meds/Allgy Home Medications Ambulatory Orders Medication Instructions Recorded Confirmed albuterol sulfate 90 mcg/actuation 2 puff inhalation Q 4H PRN 11/12/18 03/09/25 aerosol inhaler shortness of breath or wheez ing atorvastatin 40 mg tablet 1 tab PO DAILY 11/12/1802/22 dabigatran etexilate 75 mg capsule 75 mg PO BID 03/09/25 (Pradaxa) diltiazem HCl 240 mg 240 mg PO BID 11/12/1803/09 capsule,extended release 24 hr, controlled (DILT-XR) levothyroxine 175 mcg tablet 1 tab PO DAILY 11/12/18 1 losartan 50 mg tablet 0.5 tab PO BID 11/12/1802/22 metformin 500 mg tablet 1 tab PO BID 11/12/18 metoprolol succinate 200 mg 1 tab PO DAILY 11/12/18 tablet,extended release 24 hr (Toprol XL) zolpidem 5 mg tablet 5 mg PO ONCE PRN insomnia 03/09/25 guaifenesin 600 mg tablet, 600 mg PO BID #14 tabs 07/2403/09/25 extended release 12 hr (Mucinex) spironolactone 25 mg tablet 25 mg PO DAILY 08/16/22 furosemide 20 mg tablet 20 mg PO QAM 03/07/25 montelukast 10 mg tablet 10 mg PO QPM 03/07/25 Allergies Allergies Allergy/AdvReac Type Severity Reaction Status Date / Time acetaminophen (From Percocet) AdvReac Hallucinati Verified 03/09/25 12:26 ons codeine AdvReac Dizziness Verified 03/09/25 12:26 oxycodone (From Percocet) AdvReac Hallucinati Verified 03/09/25 12:26 ons PFSH Active Problems All Active Problems (Updated 03/09/25 @ 16:53 by James Cervantes, ) Hypothyroid (Chronic) Asthma (Chronic) Atrial fibrillation (Chronic) Sepsis (Acute) Hypoxia (Acute) Rhinovirus infection (Acute) Pneumonia (Acute) Acute exacerbation of CHF (congestive heart failure) (Acute) Acute on chronic hypoxic respiratory failure (Acute) Congestive heart failure (Acute) Pneumonia (Acute) Rhinovirus (Acute) Morbid obesity (Acute) Respiratory failure (Acute) Social History Social History Smoking Status: Former smoker If you are a former smoker, when did you quit? (Date/Year): 1985 Number of Years Smoked: 20 How many cigarettes a day do you smoke? (20 cigarettes=1 Pk): 30 Do you dip or chew tobacco?: No Do you vape?: No Level: Independent Do you feel safe in your home environment?: Yes History of physical, verbal, emotional, or financial abuse?: No Frequency: Occasional Exam Exam Vital Signs: Vital Signs x48h Temp Pulse Resp BP Pulse Ox O2 Flow Rate 03/09/25 15:22 87 20 143/82 H 91 L 7 03/09/25 14:52 91 24 144/67 H 90 L 7 03/09/25 14:22 83 24 121/82 91 L 7 03/09/25 13:53 86 81 H 142/81 H 90 L 7 03/09/25 13:05 89 L 7 03/09/25 13:00 86 L 4.5 03/09/25 12:26 7 03/09/25 12:24 36.9 C 118 H 18 127/69 85 L 4 GEN: No acute distress HEENT: NC/AT, normal appearance of external ears and nose. Cardiac: Irregular rhythm, rate controlled. No murmurs appreciated. No visible JVP elevation. Trace to 1+ bilateral pitting edema. Pulm: Coarse rhonchi in the lungs bilaterally. Productive cough. Trace wheezing bilaterally. Normal effort on 6 L NC. Abdomen: Obese, nontender, soft, no rebound tenderness or guarding. Extremities: Moves all 4 extremities equally. Normal tone. Neuro: Face symmetric, CN II through XII intact grossly. No focal neurologic deficits. Psych: Mood euthymic with congruent affect. Good fund of knowledge. Judgment intact. Sepsis Event Note (H) Evaluation Current Stage of Sepsis: Severe sepsis Possible source of Sepsis: positive Pulmonary Sepsis Criteria Sepsis Criteria: Recorded Heart Rate greater than 90 bpm, Recorded Respiratory Rate greater than 20, Respiratory: Increasing oxygen requirements and WBC count greater than 12,000 or less than 4000 Conclusion/Plan Problem List (1) Hypoxia: Plan: Patient is doing anoxia, possibly multifactorial. Consideration for heart failure exacerbation as below. I do believe most of her presentation is explained by upper respiratory infection and she is found to have rhinovirus. She has a history of asthma and inflammatory lung disease. - Wean oxygen as tolerated - If O2 needs less than 3 L, can likely continue to wean at home. - CHF as below - Continue nightly CPAP as below (2) Sepsis: Plan: Patient technically meets sepsis criteria. She is tachycardic on arrival. She has an elevated leukocytosis. Blood pressure is holding stable. Severe sepsis by virtue of her acute hypoxemic respiratory failure. - Defer further fluids as she is euvolemic on exam. Not tachycardic. She just received a dose of Lasix. - If her blood pressures start softening, we will give 500 to 1 L of fluids - Hold REAL ESTATE RECRUITER losartan - Blood cultures ordered - Trend CBC and BMP a.m. (3) Rhinovirus infection: (4) Asthma: (5) Pneumonia: Plan: Patient with hypoxemia as above. I believe that her pneumonia and/or exacerbation of reactive airway disease is contributing most to her presentation. She received Solu-Medrol and breathing treatment in the ambulance and has improved. She carries a diagnosis of asthma. [id number] smoking history. Former smoker. Does not have a diagnosis of COPD. She has an FEV1/FVC from 2017 that reveals ratio of 0.79. She did have an FEV1 at 64% predicted value at that time. Given elevated leukocytosis, will treat with antibiotics Found to be rhinovirus positive here. Given her duration of symptoms it is possible she has an overlying superimposed bacterial infection. - Ceftriaxone for CAP, 3 days of azithromycin, prefer oral - Continue as needed albuterol inhaler - Steroid pulse for 5 days total, 4 additional days prednisone 40 mg ordered - Guaifenesin to mobilize secretions - Sputum culture ordered (6) Congestive heart failure: Plan: Patient has a known history of congestive heart failure. She has an echo that was done here in April that reveals heart failure with preserved ejection fraction. EF 65 to 70%. Moderate right ventricular enlargement and mild right ventricular systolic function. She has moderate aortic stenosis on that exam. She is on HFrEF meds (BB, ARB, MRA) so unsure if she may have improved EF. Cannot find her index echo. She is on Aldactone 25 mg daily, metoprolol succinate, losartan She had an elevated BNP when she presented 03/07, came down some when she represented (174 this admission). She got 60mg IV lasix in the ED. - Holding losartan as above - Continue lasix and aldactone oral tomorrow - Forgo further IV diuretic for now. - Strict IO, daily weight - Cardiac diet Qualifiers: Heart failure chronicity: acute on chronic Heart failure type: u nspecified Qualified Code(s): I50.9 - Heart failure, unspecified (7) Atrial fibrillation: Plan: Currently rate controlled On diltiazem, Toprol and DOAC - Continue home meds (8) Hypothyroid: Plan: Continuing home T4. (9) Morbid obesity: Plan: Noted. Ambulates with 4WW at baseline. Lab Results 03/09/25 12:46 03/09/25 12:46
[2025-03-09] MEDS: FUROSEMIDE 40 MG/4 ML VIAL IVP STA (13:31)
[2025-03-09] MEDS: cefTRIAXone 2 GM in SODIUM CHLORIDE 0.9% MINIBAG 100 ML IV STA (13:45)
[2025-03-09] MEDS: AZITHROMYCIN INJ 500 MG in SODIUM CHLORIDE 0.9% 250 ML IV STA (13:45)
--- NOTE | 2025-03-09 16:21 | PHARMACY PROGRESS NOTE ---
Best Possible Medication History Admit Date and Time: 03/09/25 1322 Home Medications Medication Instructions Recorded Confirmed Type albuterol sulfate 90 mcg/actuation 2 puff inhalation Q 4H PRN 11/12/18 03/09/25 History aerosol inhaler shortness of breath or wheez ing atorvastatin 40 mg tablet 1 tab PO DAILY 11/12/1802/22 History dabigatran etexilate 75 mg capsule 75 mg PO BID 03/09/25 History (Pradaxa) diltiazem HCl 240 mg 240 mg PO BID 11/12/1803/09 History capsule,extended release 24 hr, controlled (DILT-XR) levothyroxine 175 mcg tablet 1 tab PO DAILY 11/12/18 History losartan 50 mg tablet 0.5 tab PO BID 11/12/1802/22 History metformin 500 mg tablet 1 tab PO BID 11/12/18 History metoprolol succinate 200 mg 1 tab PO DAILY 11/12/18 History tablet,extended release 24 hr (Toprol XL) zolpidem 5 mg tablet 5 mg PO ONCE PRN insomnia 03/09/25 History guaifenesin 600 mg tablet, 600 mg PO BID #14 tabs 07/2403/09/25 Rx extended release 12 hr (Mucinex) spironolactone 25 mg tablet 25 mg PO DAILY 08/16/22 Rx furosemide 20 mg tablet 20 mg PO QAM 03/07/25 History montelukast 10 mg tablet 10 mg PO QPM 03/07/25 History Processed by: Pharmacy Medications reviewed in ED?: Yes Medication History completed: Yes Patient Interview: Completed Secondary Source(s): Insurance records [facility] Statement: As the person ultimately responsible for medication therapy, providers are able to order a medication from an existing home medication list in [facility] via the "Reconcile Routine" prior to Confirmation of that medication by security support analyst. Such practice is discouraged except when the physician, in their clinical judgment, deems that a medical need exists for a medication without regard to previous use.
[2025-03-09] MEDS ORDERED: ACETAMINOPHEN 325 MG TABLET PO PRN (16:31)
[2025-03-09] MEDS ORDERED: oxyCODONE 5 MG TABLET PO PRN (16:31)
[2025-03-09] MEDS ORDERED: ONDANSETRON 4 MG/2 ML VIAL IVP PRN (16:31)
[2025-03-09] MEDS ORDERED: ONDANSETRON ODT 4 MG TABLET TL PRN (16:31)
[2025-03-09] MEDS: SODIUM CHLORIDE FLUSH 0.9% 10 ML SYRINGE IVP SCH (17:24)
[2025-03-09] MEDS: guaiFENesin 100 MG/5 ML UDC PO SCH (17:25)
--- NOTE | 2025-03-09 18:33 | ADVANCE CARE PLANNING NOTE ---
Advance Care Planning Planning Encounter Date: 03/09/25 Time: 18:33 Diagnosis for Encounter (1) Hypoxia: (2) Sepsis: (3) Rhinovirus infection: (4) Asthma: (5) Pneumonia: (6) Congestive heart failure: Qualifiers: Heart failure chronicity: acute on chronic Heart failure type: unspecified Qualified Code(s): I50.9 - Heart failure, unspecified (7) Atrial fibrillation: (8) Hypothyroid: (9) Morbid obesity: Encounter Additional Discussion: I had a wonderful conversation with Jannie. 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 She has a keen insight into her health conditions, and has an excellent understanding of the progressive nature of her heart failure. She has overall had excellent response to lifestyle modifications for heart failure. She follows with cardiology regularly. Her salon/spa manager, Dr. Marc Barbosa, is due to her. She appreciates their visits. She walks with a walker, but is able to do all the things that she enjoys. She describes herself as mostly a homebody. She is an introvert. She feels comfortable being able to be home with her and sitting on her porch watching the ocean. I discussed some of the limitations of medical care and that at some point in time she may not be able to recover from her heart failure progression. She understands and offers that palliative care would be a possible approach at some point. She reiterates that she has paperwork somewhere expressing her wishes. She froze her brow when I offered that if she were to be found with her heart stopped at home, paramedics would do chest compressions and try and resuscitate her. She feels this would be against her wishes and anticipate she would have a poor outcome. I agree with her. In the hospital, she feels that there may be better chance of success, and is not prepared to endorse a DNR status at this time. I told her I would follow-up in the next day if she remains hospitalized. I will also introduce the notion of a POLST when we discuss this tomorrow. At this time she is full code. She is contemplative about this CODE STATUS however. Her Josiah is her surrogate decision maker and legal next of kin. She thinks they have POA paperwork filled out previously. Encouraged her to bring a copy to the hospital so we can have it on record. Code Status: Attempt Resuscitation Time spent on advance care plannin
[2025-03-09] MEDS ORDERED: LOSARTAN 50 MG TABLET PO SCH (21:00)
[2025-03-09] MEDS: ZOLPIDEM 5 MG TABLET PO SCH (21:06)
[2025-03-09] MEDS: MONTELUKAST 10 MG TABLET PO SCH (21:06)
[2025-03-09] MEDS: APIXABAN 5 MG TABLET PO SCH (21:06)
[2025-03-10 06:05] LABS: HCT - HEMATOCRIT 38.4 % (37.0-47.0); HGB - HEMOGLOBIN 12.2 g/dL (12.0-16.0); MEAN PLATELET VOLUME 9.2 fL (7.9-10.8); PLT - PLATELET COUNT 356.0 10^3/uL (130-450); RED CELL DISTRIBUTION WIDTH 13.8 % (12.0-15.0)
[2025-03-10 06:19] LABS: BUN - BLOOD UREA NITROGEN 20.0 mg/dL (6-20); CARBON DIOXIDE - CO2 26.0 mmol/L (21-32); CREATININE 0.7 mg/dL (0.6-1.3); GFR - MDRD 81.0 (>89)
[2025-03-10] MEDS: LEVOTHYROXINE 100 MCG TABLET PO SCH (06:20)
[2025-03-10] MEDS: LEVOTHYROXINE 75 MCG TABLET PO SCH (06:20)
--- NOTE | 2025-03-10 08:22 | PROVIDER PROGRESS NOTE ---
Subjective Prog Note Date Prog Note Date: 03/10/25 Prog Note Time: 08:14 Subjective Subjective: Clinically stable, mildly improved. She is still satting in the low 90s on 4 to 5 L. Leukocytosis resolved. Sodium stable 134. Electrolytes remaining are stable. Creatinine stable 0.7. Glucose stable. Importantly she no longer meets septic criteria. Tachycardia, tachypnea, leukocytosis all resolved. She still has acute hypoxemic respiratory failure. Blood pressure remains normotensive. Continue to hold losartan. Patient says she feels well today. She is eating and drinking normally. She is having some intranasal congestion. Current Medications Current Medications Current Medications: Current Medications Generic Name Dose Route Start Last Admin Trade Name Freq PRN Reason Stop Dose Admin Acetaminophen 650 mg 03/09/25 16:31 Acetaminophen 325 Mg Tablet PO Q4HR PRN Pain 1 to 4, or Fever Albuterol 2.5 mg 03/09/25 16:54 Albuterol Neb 2.5 Mg/3 Ml INH RTQ4H PRN Wheezing Apixaban 5 mg 03/09/25 21:00 03/09/25 21:06 Apixaban 5 Mg Tablet PO 5 mg BID CINDI Administration Atorvastatin Calcium 40 mg 03/10/25 09:00 Atorvastatin 40 Mg Tablet PO DAILY CINDI Azithromycin 250 mg 03/10/25 09:00 Azithromycin 250 Mg Tablet PO 03/12/25 08:59 DAILY CINDI Ceftriaxone Sodium 1 gm 03/10/25 09:00 Ceftriaxone 1 Gm Vial IVP DAILY CINDI Diltiazem HCl 240 mg 03/09/25 21:00 03/09/25 21:06 Diltiazem Cd 240 Mg Capsule PO 240 mg BID CINDI Administration Furosemide 20 mg 03/10/25 09:00 Furosemide 20 Mg Tablet PO DAILY CINDI Guaifenesin 200 mg 03/09/25 17:00 03/09/25 21:05 Guaifenesin 100 Mg/5 Ml Udc PO 03/11/25 13:01 200 mg QID CINDI Administration Levothyroxine Sodium 100 mcg 03/10/25 07:00 03/10/25 06:20 Levothyroxine 100 Mcg Tablet PO 100 mcg QDAC CINDI Administration Levothyroxine Sodium 75 mcg 03/10/25 07:00 03/10/25 06:20 Levothyroxine 75 Mcg Tablet PO 75 mcg QDAC CINDI Administration Metoprolol Succinate 200 mg 03/10/25 09:00 Metoprolol Succinate 50 Mg Tablet PO DAILY [facility] Montelukast Sodium 10 mg 03/09/25 21:00 03/09/25 21:06 Montelukast 10 Mg Tablet PO 10 mg QPM CINDI Administration Ondansetron HCl 4 mg 03/09/25 16:31 Ondansetron Odt 4 Mg Tablet TL Q6HR PRN Nausea / Vomiting Ondansetron HCl 4 mg 03/09/25 16:31 Ondansetron 4 Mg/2 Ml Vial IVP Q6HR PRN Nausea / Vomiting Oxycodone HCl 5 mg 03/09/25 16:31 Oxycodone 5 Mg Tablet PO Q4HR PRN Pain 5 to 7 Prednisone 40 mg 03/10/25 08:00 Prednisone 20 Mg Tablet PO 03/13/25 08:01 DAILYWM CINDI Sodium Chloride 10 ml 03/09/25 16:31 Sodium Chloride Flush 0.9% 10 Ml Syringe IVP PRN PRN NEEDED PER PROVIDER ORDERS Sodium Chloride 10 ml 03/09/25 17:00 03/10/25 00:12 Sodium Chloride Flush 0.9% 10 Ml Syringe IVP 10 ml 0100,0900,1700 CINDI Administration Spironolactone 25 mg 03/10/25 09:00 Spironolactone 25 Mg Tablet PO DAILY [facility] Zolpidem Tartrate 5 mg 03/09/25 21:00 03/09/25 21:06 Zolpidem 5 Mg Tablet PO 5 mg HS CINDI Administration Objective Vital Signs/Intake & Output Vital Signs: Vital Signs x48h Temp Pulse Pulse Resp BP Pulse Ox O2 Flow Rate 03/10/25 06:20 36.7 C 90 18 129/72 92 5 03/10/25 05:11 5 03/10/25 00:15 36.5 C 87 20 97/57 L 92 5 Intake & Output: Intake & Output 03/07/25 03/08/25 03/09/25 03/10/25 23:59 23:59 23:59 23:59 Intake Total 840 / 840 300 / 300 Output Total 200 / 200 100 / 100 Balance 640 / 640 200 / 200 Weight (kg) 130.635 kg 128.5 kg Objective Comments/Other: GEN: No acute distress HEENT: NC/AT, normal appearance of external ears and nose. Cardiac: Irregular rhythm, rate controlled. No murmurs appreciated. No visible JVP elevation. Trace to 1+ bilateral pitting edema. Pulm: Coarse rhonchi in the lungs bilaterally. Productive cough. Trace wheezing bilaterally. Normal effort on 6 L NC. Abdomen: Obese, nontender, soft, no rebound tenderness or guarding. Extremities: Moves all 4 extremities equally. Normal tone. Neuro: Face symmetric, CN II through XII intact grossly. No focal neurologic deficits. Psych: Mood euthymic with congruent affect. Good fund of knowledge. Judgment intact. Lab Results 03/10/25 05:20 03/10/25 05:20 Other Labs: Lab Results x24hrs 03/10/25 03/09/25 Range/Units 05:20 12:46 WBC 10.7 12.5 H (4.8-10.8) x10^3/uL RBC 4.06 L 4.30 (4.20-5.40) 10^6/uL Hgb 12.2 12.9 (12.0-16.0) g/dL Hct 38.4 41.2 (37.0-47.0) % MCV 94.6 95.8 (81.0-99.0) fL MCH 30.0 30.0 (27.0-31.0) pg MCHC 31.8 L 31.3 L (32.0-36.0) g/dL RDW 13.8 14.0 (12.0-15.0) % Plt Count 356 351 (130-450) 10^3/uL MPV 9.2 9.0 (7.9-10.8) fL Neut # (Auto) 9.9 H (1.5-6.6) 10^3/uL Lymph # (Auto) 1.1 L (1.5-3.5) 10^3/uL Fannin # (Auto) 1.3 H (0.0-1.0) 10^3/uL Eos # (Auto) 0.2 (0.0-0.7) 10^3/uL Baso # (Auto) 0.1 (0.0-0.1) 10^3/uL Absolute Nucleated RBC 0.00 x10^3/uL Nucleated RBC % 0.0 /100WBC Sodium 134 L 134 L (135-145) mmol/L Potassium 3.7 3.8 (3.5-4.5) mmol/L Chloride 99 L 99 L (101-111) mmol/L Carbon Dioxide 26 28 (21-32) mmol/L Anion Gap 9.0 7.0 (6-13) BUN 20 17 (6-20) mg/dL Creatinine 0.7 0.7 (0.6-1.3) mg/dL Estimated GFR (MDRD) 81 L 81 L (>89) Glucose 173 H 139 H (74-104) mg/dL Calcium 9.1 9.8 (8.5-10.3) mg/dL Total Bilirubin 0.8 (0.2-1.0) mg/dL AST 14 (10-42) IU/L ALT 12 (10-60) IU/L Alkaline Phosphatase 112 (42-121) IU/L B-Natriuretic Peptide 172 H (5-100) pg/mL Total Protein 7.6 (6.4-8.9) g/dL Albumin 3.7 (3.2-5.5) g/dL Globulin 3.9 (2.1-4.2) g/dL Albumin/Globulin Ratio 0.9 L (1.0-2.2) Lipase < 10 L (11-82) U/L Sepsis Event Note (H) Evaluation Current Stage of Sepsis: Severe sepsis Possible source of Sepsis: positive Pulmonary Sepsis Criteria Sepsis Criteria: Recorded Heart Rate greater than 90 bpm, Recorded Respiratory Rate greater than 20, Respiratory: Increasing oxygen requirements and WBC count greater than 12,000 or less than 4000 Assessment/Plan Problem List (1) Hypoxia: Impression: Mildly improved. Has been clinically stable on 4 to 5 L. Presented with new hypoxia. Not on oxygen at baseline. Requiring 5 to 7 L on initial arrival. - Managing as below - Wean oxygen as tolerated, goal saturation greater than 92% - Nightly CPAP as below (2) Rhinovirus infection: (3) Asthma: (4) Pneumonia: Impression: Persistent hypoxemia as above. Wheezing on exam mild. Intervally improved otherwise, leukocytosis resolved. Afebrile. Mild wheezing on exam. Continues to have upper respiratory symptoms, nasal congestion. Recall that she does not have a diagnosis of COPD. She has an FEV1/FVC of 0.79 from 2017. Former smoker [id number]. She does have a history of asthma, uses a as needed inhaler. She received steroids and breathing treatment in the ambulance which improved some of her symptoms. Initial CXR was concerning for consolidation versus edema. - Continue CTX, day 2 of 5. Continue azithromycin day 2 of 3. - As needed albuterol inhaler - Steroid pulse for 5 days, EOT 03/13 - Scheduled guaifenesin, scheduled fluticasone intranasally - Sputum culture (5) Congestive heart failure: Impression: Stable. No lower extremity edema. Some interstitial prominence with concern for edema as above. Weights are down from our stroke record. Patient does not know her dry weight. Despite this, given that CHF is on the differential, not ruled out by BNP, will give IV diuresis today to try and improve her oxygenation. Patient has a known history of congestive heart failure. She has an echo that was done here in April that reveals heart failure with preserved ejection fraction. EF 65 to 70%. Moderate right ventricular enlargement and mild right ventricular systolic function. She has moderate aortic stenosis on that exam. She is on HFrEF meds (BB, ARB, MRA) so unsure if she may have improved EF. Cannot find her index echo. She is on Aldactone 25 mg daily, metoprolol succinate, losartan She had an elevated BNP when she presented 03/07, came down some when she represented (174 this admission). She got 60mg IV lasix in the ED. 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 Patient initially presented with septic vital signs, tachycardia, leukocytosis, tachypnea. All have resolved by 03/10 - Continue treating pneumonia as above - Can resume antihypertensive when clinically indicated - Follow-up blood cultures, NGTD (8) Hypothyroid: Impression: Continuing home T4 dose (9) Morbid obesity: Impression: Noted
[2025-03-10] MEDS: METOPROLOL SUCCINATE 50 MG TABLET PO SCH (08:29)
[2025-03-10] MEDS: SPIRONOLACTONE 25 MG TABLET PO SCH (08:30)
[2025-03-10] MEDS: ATORVASTATIN 40 MG TABLET PO SCH (08:30)
[2025-03-10] MEDS: FUROSEMIDE 20 MG TABLET PO SCH (08:30)
[2025-03-10] MEDS: cefTRIAXone 1 GM VIAL IVP SCH (08:34)
[2025-03-10] MEDS: AZITHROMYCIN 250 MG TABLET PO SCH (08:34)
[2025-03-10] MEDS: FLUTICASONE NASAL SPRAY NAS SCH (10:03)
[2025-03-10] MEDS: FUROSEMIDE 40 MG/4 ML VIAL IVP ONE ×2 (11:42→16:32)
[2025-03-10] MEDS: ALBUTEROL NEB 2.5 MG/3 ML INH PRN (22:22)
[2025-03-11] MEDS: NYSTATIN POWDER 15 GM TOP SCH (01:11)
[2025-03-11 06:02] LABS: HCT - HEMATOCRIT 39.1 % (37.0-47.0); HGB - HEMOGLOBIN 12.3 g/dL (12.0-16.0); MEAN PLATELET VOLUME 8.9 fL (7.9-10.8); PLT - PLATELET COUNT 366.0 10^3/uL (130-450); RED CELL DISTRIBUTION WIDTH 14.0 % (12.0-15.0)
[2025-03-11 06:22] LABS: BUN - BLOOD UREA NITROGEN 29.0 mg/dL (6-20); CARBON DIOXIDE - CO2 30.0 mmol/L (21-32); CREATININE 0.7 mg/dL (0.6-1.3); GFR - MDRD 81.0 (>89)
--- NOTE | 2025-03-11 08:18 | PROVIDER PROGRESS NOTE ---
Subjective Prog Note Date Prog Note Date: 03/11/25 Prog Note Time: 08:14 Subjective Subjective: Patient's oxygen requirement not improved much. She did not have much effect from her 40 mg of IV Lasix yesterday. I/O over the last 24 hours is only net - 110. Only 1200 reported out. Leukocytosis slightly increased in the setting of new steroids that we started last couple of days, suspect demargination. Remains afebrile. Vital signs remained stable otherwise. Repeat chest x-ray this morning is suspicious for ongoing consolidation of the right lower lobe. Intervally increased in size. Procalcitonin was negative this morning. Given discordant data, will maintain on antibiotics today, consider early discontinuation at 72 hours tomorrow if her respiratory status is improving with diuresis. Patient has any fevers or chills. Denies chest pain, dyspnea. She states that she actually feels great. She requested her oxygen levels to return down yesterday, but desaturated when they did so. Eating and drinking well. Normal bowel bladder function. Current Medications Current Medications Current Medications: Current Medications Generic Name Dose Route Start Last Admin Trade Name Freq PRN Reason Stop Dose Admin Acetaminophen 650 mg 03/09/25 16:31 Acetaminophen 325 Mg Tablet PO Q4HR PRN Pain 1 to 4, or Fever Albuterol 2.5 mg 03/09/25 16:54 03/10/25 22:22 Albuterol Neb 2.5 Mg/3 Ml INH 2.5 mg RTQ4H PRN Administration Wheezing Apixaban 5 mg 03/09/25 21:00 03/10/25 22:12 Apixaban 5 Mg Tablet PO 5 mg BID CINDI Administration Atorvastatin Calcium 40 mg 03/10/25 09:00 03/10/25 08:30 Atorvastatin 40 Mg Tablet PO 40 mg DAILY CINDI Administration Azithromycin 250 mg 03/10/25 09:00 03/10/25 08:34 Azithromycin 250 Mg Tablet PO 03/12/25 08:59 250 mg DAILY CINDI Administration Ceftriaxone Sodium 1 gm 03/10/25 09:00 03/10/25 08:34 Ceftriaxone 1 Gm Vial IVP 1 gm DAILY CINDI Administration Diltiazem HCl 240 mg 03/09/25 21:00 03/10/25 22:13 Diltiazem Cd 240 Mg Capsule PO 240 mg BID CINDI Administration Fluticasone Propionate 1 sprays 03/10/25 09:00 03/10/25 10:03 Fluticasone Nasal [place] AURELIO 1 mcg DAILY CINDI Administration Furosemide 80 mg 03/11/25 08:00 Furosemide 40 Mg/4 Ml Vial IVP BIDDIURETIC CINDI Guaifenesin 200 mg 03/09/25 17:00 03/10/25 22:12 Guaifenesin 100 Mg/5 Ml Udc PO 03/11/25 13:01 200 mg QID CINDI Administration Levothyroxine Sodium 100 mcg 03/10/25 07:00 03/11/25 06:50 Levothyroxine 100 Mcg Tablet PO 100 mcg QDAC CINDI Administration Levothyroxine Sodium 75 mcg 03/10/25 07:00 03/11/25 06:50 Levothyroxine 75 Mcg Tablet PO 75 mcg QDAC CINDI Administration Metoprolol Succinate 200 mg 03/10/25 09:00 03/10/25 08:29 Metoprolol Succinate 50 Mg Tablet PO 200 mg DAILY CINDI Administration Montelukast Sodium 10 mg 03/09/25 21:00 03/10/25 22:12 Montelukast 10 Mg Tablet PO 10 mg QPM CINDI Administration Nystatin 1 applic 03/10/25 21:00 03/11/25 01:11 Nystatin Powder 15 Gm TOP Not Given BID CINDI Ondansetron HCl 4 mg 03/09/25 16:31 Ondansetron Odt 4 Mg Tablet TL Q6HR PRN Nausea / Vomiting Ondansetron HCl 4 mg 03/09/25 16:31 Ondansetron 4 Mg/2 Ml Vial IVP Q6HR PRN Nausea / Vomiting Oxycodone HCl 5 mg 03/09/25 16:31 Oxycodone 5 Mg Tablet PO Q4HR PRN Pain 5 to 7 Prednisone 40 mg 03/11/25 07:20 Prednisone 20 Mg Tablet PO 03/12/25 08:01 DAILYWM CINDI Sodium Chloride 10 ml 03/09/25 16:31 Sodium Chloride Flush 0.9% 10 Ml Syringe IVP PRN PRN NEEDED PER PROVIDER ORDERS Sodium Chloride 10 ml 03/09/25 17:00 03/11/25 01:12 Sodium Chloride Flush 0.9% 10 Ml Syringe IVP 10 ml 0100,0900,1700 CINDI Administration Spironolactone 25 mg 03/10/25 09:00 03/10/25 08:30 Spironolactone 25 Mg Tablet PO 25 mg DAILY CINDI Administration Zolpidem Tartrate 5 mg 03/09/25 21:00 03/10/25 22:13 Zolpidem 5 Mg Tablet PO 5 mg HS CINDI Administration Objective Vital Signs/Intake & Output Vital Signs: Vital Signs x48h Temp Pulse Resp BP Pulse Ox O2 Flow Rate 03/11/25 01:00 36.6 C 65 18 144/84 H 91 L 5 Intake & Output: Intake & Output 03/08/25 03/09/25 03/10/25 03/11/25 23:59 23:59 23:59 23:59 Intake Total 840 / 840 1030 / 1030 360 / 360 Output Total 200 / 200 975 / 975 325 / 325 Balance 640 / 640 55 / 55 35 / 35 Weight (kg) 130.635 kg 128.5 kg Objective Comments/Other: GEN: No acute distress HEENT: NC/AT, normal appearance of external ears and nose. Cardiac: Irregular rhythm, rate controlled. No murmurs appreciated. No visible JVP elevation. Trace to 1+ bilateral pitting edema. Pulm: Fine rales throughout. No significant rhonchi on the right, though distant lung sounds. Dry cough. Normal effort on 5 L. Abdomen: Obese, nontender, soft, no rebound tenderness or guarding. Extremities: Moves all 4 extremities equally. Normal tone. Neuro: Face symmetric, CN II through XII intact grossly. No focal neurologic deficits. Psych: Mood euthymic with congruent affect. Good fund of knowledge. Judgment intact. Lab Results 03/11/25 05:48 03/11/25 05:48 Other Labs: Lab Results x24hrs 03/11/25 03/11/25 Range/Units 07:59 05:48 WBC 16.2 H (4.8-10.8) x10^3/uL RBC 4.10 L (4.20-5.40) 10^6/uL Hgb 12.3 (12.0-16.0) g/dL Hct 39.1 (37.0-47.0) % MCV 95.4 (81.0-99.0) fL MCH 30.0 (27.0-31.0) pg MCHC 31.5 L (32.0-36.0) g/dL RDW 14.0 (12.0-15.0) % Plt Count 366 (130-450) 10^3/uL MPV 8.9 (7.9-10.8) fL Sodium 134 L (135-145) mmol/L Potassium 3.7 (3.5-4.5) mmol/L Chloride 98 L (101-111) mmol/L Carbon Dioxide 30 (21-32) mmol/L Anion Gap 6.0 (6-13) BUN 29 H (6-20) mg/dL Creatinine 0.7 (0.6-1.3) mg/dL Estimated GFR (MDRD) 81 L (>89) Glucose 143 H (74-104) mg/dL POC Whole Bld Glucose 132 (70-100) mg/dL Calcium 9.0 (8.5-10.3) mg/dL Procalcitonin Immunoas < 0.05 (<0.5) ng/mL Diagnostic Imaging Diagnostic Imaging Results: positive Read independently Diagnostic Imaging Comments: Chest x-ray 03/11 with marked interstitial prominence, apparent consolidation in the right lower lobe, Masking right costophrenic angle. Pending formal read. Sepsis Event Note (H) Evaluation Current Stage of Sepsis: Severe sepsis Possible source of Sepsis: positive Pulmonary Sepsis Criteria Sepsis Criteria: Recorded Heart Rate greater than 90 bpm, Recorded Respiratory Rate greater than 20, Respiratory: Increasing oxygen requirements and WBC count greater than 12,000 or less than 4000 Assessment/Plan Problem List (1) Hypoxia: Impression: Unchanged. Continues on 5 L via nasal cannula. Cough improved. Upper respiratory congestion improved. Presented with new hypoxia. Not on oxygen at baseline. Requiring 5 to 7 L on initial arrival. - Managing as below - Wean oxygen as tolerated, goal saturation greater than 92% - Nightly CPAP as below (2) Rhinovirus infection: (3) Asthma: Qualifiers: Asthma severity: mild Asthma persistence: intermittent Asthma complication type: unspecified Qualified Code(s): J45.20 - Mild intermittent asthma, uncomplicated (4) Pneumonia: Impression: Persistent hypoxemia as above. No longer wheezing on exam. Leukocytosis recurrent, but on corticosteroids. Continues to have upper respiratory symptoms, nasal congestion, Improving with supportive care. She does have a more evident consolidation on her chest x-ray shot 03/11. However her procalcitonin from the same day is negative. If she improves with diuresis, will likely opt for early discontinuation of antibiotics on 03/12 after 72 hours of antibiotic. Recall that she does not have a diagnosis of COPD. She has an FEV1/FVC of 0.79 from 2017. Former smoker [id number]. She does have a history of asthma, uses a as needed inhaler. She received steroids and breathing treatment in the ambulance which improved some of her symptoms. Her symptoms did not change significantly over the 2 days she received steroids. This is not concordant with expected improvement in asthma. I have opted for early discontinuation of steroids, as of 03/11. Will monitor for worsening reactive airway disease. - Continue CTX, day 3 of 5. Continue azithromycin day 3 of 3. Possible early discontinuation on 03/12 given negative procalcitonin 03/11. - DuoNebs as needed - Received pulse dose of steroids on 03/09 and , discontinued without significant improvement in respiratory status. - Scheduled guaifenesin, scheduled fluticasone intranasally - Sputum culture Qualifiers: Pneumonia type: due to unspecified organism Laterality: right Lung location: lower lobe of lung Qualified Code(s): J18.9 - Pneumonia, unspecified organism (5) Congestive heart failure: Impression: More pronounced interstitial prominence on chest x-ray shot 03/11. Respiratory status as above. Did not respond amply to 40 mg IV Lasix x 2 on 03/10. Patient has a known history of congestive heart failure. She has an echo that was done here in April that reveals heart failure with preserved ejection fraction. EF 65 to 70%. Moderate right ventricular enlargement and mild right ventricular systolic function. She has moderate aortic stenosis on that exam. She is on HFrEF meds (BB, ARB, MRA) so unsure if she may have improved EF. Cannot find her index echo. She is on Aldactone 25 mg daily, metoprolol succinate, losartan [employer] She had an elevated BNP when she presented 03/07, came down some when she represented (174 this admission). She got 60mg IV lasix in the ED. Did not have ample urine output on 40 mg IV Lasix x 2. Only 1200 out throughout the day. - Resume losartan today. - Continue [employer] aldactone - IV Lasix 80 mg x 2 today - BMP and magnesium AM - Strict IO, daily weight - Cardiac diet Qualifiers: Heart failure chronicity: acute on chronic Heart failure type: u nspecified Qualified Code(s): I50.9 - Heart failure, unspecified (6) Atrial fibrillation: Impression: Currently rate controlled On diltiazem, Toprol and DOAC - Continue home meds Qualifiers: Atrial fibrillation type: longstanding persistent Qualified Code(s): I 48.11 - Longstanding persistent atrial fibrillation (7) Sepsis: Impression: Resolved. Patient initially presented with septic vital signs, tachycardia, leukocytosis, tachypnea. Severe sepsis by account of acute hypoxemic respiratory failure. Septic physiology is resolved by03/10. Antihypertensives resumed 03/11. She was maintained on her atrial fibrillation medications. Did not have any hypotension. - Continue treating pneumonia as above - Follow-up blood cultures, NGTD Qualifiers: Sepsis type: sepsis due to unspecified organism Sepsis acute organ dysfunction status: with acute organ dysfunction Severe sepsis acute organ dysfunction type: acute respiratory failure Acute respiratory failure type: w ith hypoxia Severe sepsis shock status: without septic shock Qualified Code(s): A41.9 - Sepsis, unspecified organism; R65.20 - Severe sepsis without septic shock; J96.01 - Acute respiratory failure with hypoxia (8) Hypothyroid: Impression: Continuing home T4 dose Qualifiers: Hypothyroidism type: acquired Qualified Code(s): E03.9 - Hypothyroidism, unspecified (9) Morbid obesity: Impression: Noted
[2025-03-11] MEDS: FUROSEMIDE 40 MG/4 ML VIAL IVP SCH (09:07)
[2025-03-11] MEDS: LOSARTAN 50 MG TABLET PO SCH (11:07)
--- NOTE | 2025-03-11 14:23 | XRAY Report ---
PROCEDURE: XR Chest 1V INDICATIONS: Hypox resp failure TECHNIQUE: One view of the chest was acquired. COMPARISON: 03/09/2025 FINDINGS AND IMPRESSION: Suspect small right pleural effusion and right lung base opacity again seen. Diffusely prominent interstitium, possibly edema, slightly decreased compared to 03/09/2025. Consider future imaging surveillance to assess for resolution. Cardiomegaly. Possible left upper lung granuloma Degenerative osseous changes. Reviewed by: Rene Reich MD on 03/11/2025 2:20 PM PDT Approved by: Rene Reich MD on 03/11/2025 2:20 PM PDT Station ID: [id number]
[2025-03-12 05:50] LABS: HCT - HEMATOCRIT 40.5 % (37.0-47.0); HGB - HEMOGLOBIN 12.9 g/dL (12.0-16.0); MEAN PLATELET VOLUME 8.8 fL (7.9-10.8); NRBC ABSOLUTE COUNT (AUTO) 0.00 x10^3/uL; NUCLEATED RED BLOOD CELLS AUTO 0.0 /100WBC; PLT - PLATELET COUNT 385 10^3/uL (130-450); RED CELL DISTRIBUTION WIDTH 13.9 % (12.0-15.0)
[2025-03-12 06:05] LABS: BUN - BLOOD UREA NITROGEN 31.0 mg/dL (6-20); CARBON DIOXIDE - CO2 32.0 mmol/L (21-32); CREATININE 0.7 mg/dL (0.6-1.3); GFR - MDRD 81.0 (>89)
[2025-03-12] MEDS ORDERED: guaiFENesin 100 MG/5 ML UDC PO PRN (07:23)
--- NOTE | 2025-03-12 08:19 | PROVIDER PROGRESS NOTE ---
Subjective Prog Note Date Prog Note Date: 03/12/25 Prog Note Time: 08:16 Subjective Subjective: Patient remained stable this morning. She is weaning somewhat off her oxygen. She is on 4 L this morning down from 5. Satting fine on that. She had a good response to diuresis yesterday. 2400 out net. Mild hypokalemia this morning 3.4. Labs otherwise do not reveal contraction alkalosis or creatinine increased. Will continue current dose of IV Lasix as it is effective, given concern for malabsorption in the abdomen, she may need to remain in the hospital until she is back to room air in order for diuresis to remain effective. Current Medications Current Medications Current Medications: Current Medications Generic Name Dose Route Start Last Admin Trade Name Freq PRN Reason Stop Dose Admin Acetaminophen 650 mg 03/09/25 16:31 Acetaminophen 325 Mg Tablet PO Q4HR PRN Pain 1 to 4, or Fever Albuterol 2.5 mg 03/09/25 16:54 03/10/25 22:22 Albuterol Neb 2.5 Mg/3 Ml INH 2.5 mg RTQ4H PRN Administration Wheezing Apixaban 5 mg 03/09/25 21:00 03/11/25 20:28 Apixaban 5 Mg Tablet PO 5 mg BID CINDI Administration Atorvastatin Calcium 40 mg 03/10/25 09:00 03/11/25 08:44 Atorvastatin 40 Mg Tablet PO 40 mg DAILY CINDI Administration Azithromycin 250 mg 03/10/25 09:00 03/11/25 08:44 Azithromycin 250 Mg Tablet PO 03/12/25 08:59 250 mg DAILY CINDI Administration Ceftriaxone Sodium 1 gm 03/10/25 09:00 03/11/25 08:44 Ceftriaxone 1 Gm Vial IVP 03/13/25 09:01 1 gm DAILY CINDI Administration Diltiazem HCl 240 mg 03/09/25 21:00 03/11/25 20:28 Diltiazem Cd 240 Mg Capsule PO 240 mg BID CINDI Administration Fluticasone Propionate 1 sprays 03/10/25 09:00 03/11/25 08:49 Fluticasone Nasal [place] AURELIO 1 mcg DAILY CINDI Administration Furosemide 80 mg 03/11/25 08:00 03/12/25 06:26 Furosemide 40 Mg/4 Ml Vial IVP 80 mg BIDDIURETIC CINDI Administration Guaifenesin 200 mg 03/12/25 07:23 Guaifenesin 100 Mg/5 Ml Udc PO Q4H PRN Cough Levothyroxine Sodium 100 mcg 03/10/25 07:00 03/12/25 06:26 Levothyroxine 100 Mcg Tablet PO 100 mcg QDAC CINDI Administration Levothyroxine Sodium 75 mcg 03/10/25 07:00 03/12/25 06:26 Levothyroxine 75 Mcg Tablet PO 75 mcg QDAC CINDI Administration Losartan Potassium 25 mg 03/11/25 10:00 03/11/25 20:28 Losartan 50 Mg Tablet PO 25 mg BID CINDI Administration Metoprolol Succinate 200 mg 03/10/25 09:00 03/11/25 08:44 Metoprolol Succinate 50 Mg Tablet PO 200 mg DAILY CINDI Administration Montelukast Sodium 10 mg 03/09/25 21:00 03/11/25 20:28 Montelukast 10 Mg Tablet PO 10 mg QPM CINDI Administration Nystatin 1 applic 03/10/25 21:00 03/11/25 20:38 Nystatin Powder 15 Gm TOP 1 applic BID CINDI Administration Ondansetron HCl 4 mg 03/09/25 16:31 Ondansetron Odt 4 Mg Tablet TL Q6HR PRN Nausea / Vomiting Ondansetron HCl 4 mg 03/09/25 16:31 Ondansetron 4 Mg/2 Ml Vial IVP Q6HR PRN Nausea / Vomiting Oxycodone HCl 5 mg 03/09/25 16:31 Oxycodone 5 Mg Tablet PO Q4HR PRN Pain 5 to 7 Sodium Chloride 10 ml 03/09/25 16:31 Sodium Chloride Flush 0.9% 10 Ml Syringe IVP PRN PRN NEEDED PER PROVIDER ORDERS Sodium Chloride 10 ml 03/09/25 17:00 03/12/25 01:06 Sodium Chloride Flush 0.9% 10 Ml Syringe IVP 10 ml 0100,0900,1700 CINDI Administration Spironolactone 25 mg 03/10/25 09:00 03/11/25 08:44 Spironolactone 25 Mg Tablet PO 25 mg DAILY CINDI Administration Zolpidem Tartrate 5 mg 03/09/25 21:00 03/11/25 20:28 Zolpidem 5 Mg Tablet PO 5 mg HS CINDI Administration Objective Vital Signs/Intake & Output Vital Signs: Vital Signs x48h Temp Pulse Resp Pulse Ox O2 Flow Rate 03/12/25 01:13 36.3 C L 70 18 90 L 4 Intake & Output: Intake & Output 03/09/25 03/10/25 03/11/25 03/12/25 23:59 23:59 23:59 23:59 Intake Total 840 / 840 1030 / 1030 1800 / 1800 550 / 550 Output Total 200 / 200 975 / 975 3925 / 3925 800 / 800 Balance 640 / 640 55 / 55 -2125 / -2125 -250 / -250 Weight (kg) 130.635 kg 128.5 kg 125.5 kg Objective Comments/Other: GEN: No acute distress HEENT: NC/AT, normal appearance of external ears and nose. Cardiac: Irregular rhythm, rate controlled. No murmurs appreciated. No visible JVP elevation, limited by habitus. Trace to 1+ bilateral pitting edema. Pulm: Fine rales throughout. No significant rhonchi on the right, though distant lung sounds. Wet cough but nonproductive. Normal effort on 4 L. Abdomen: Obese, nontender, soft, no rebound tenderness or guarding. Extremities: Moves all 4 extremities equally. Normal tone. Neuro: Face symmetric, CN II through XII intact grossly. No focal neurologic deficits. Psych: Mood euthymic with congruent affect. Good fund of knowledge. Judgment intact. Lab Results 03/12/25 05:36 03/12/25 05:36 Other Labs: Lab Results x24hrs 03/12/25 Range/Units 05:36 WBC 15.1 H (4.8-10.8) x10^3/uL RBC 4.25 (4.20-5.40) 10^6/uL Hgb 12.9 (12.0-16.0) g/dL Hct 40.5 (37.0-47.0) % MCV 95.3 (81.0-99.0) fL MCH 30.4 (27.0-31.0) pg MCHC 31.9 L (32.0-36.0) g/dL RDW 13.9 (12.0-15.0) % Plt Count 385 (130-450) 10^3/uL MPV 8.8 (7.9-10.8) fL Neut # (Auto) 11.4 H (1.5-6.6) 10^3/uL Lymph # (Auto) 1.4 L (1.5-3.5) 10^3/uL [place] # (Auto) 2.0 H (0.0-1.0) 10^3/uL Eos # (Auto) 0.0 (0.0-0.7) 10^3/uL Baso # (Auto) 0.0 (0.0-0.1) 10^3/uL Absolute Nucleated RBC 0.00 x10^3/uL Band Neuts % (Manual) Not Reportable Abnorm Lymph % (Manual) Not Reportable Nucleated RBC % 0.0 /100WBC Neutrophils # (Manual) Not Reportable Lymphocytes # (Manual) Not Reportable Monocytes # (Manual) Not Reportable Eosinophils # (Manual) Not Reportable Basophils # (Manual) Not Reportable Differential Comment MANUAL=AUTO DIFF Sodium 136 (135-145) mmol/L Potassium 3.4 L (3.5-4.5) mmol/L Chloride 99 L (101-111) mmol/L Carbon Dioxide 32 (21-32) mmol/L Anion Gap 5.0 L (6-13) BUN 31 H (6-20) mg/dL Creatinine 0.7 (0.6-1.3) mg/dL Estimated GFR (MDRD) 81 L (>89) Glucose 123 H (74-104) mg/dL Calcium 9.0 (8.5-10.3) mg/dL Diagnostic Imaging Diagnostic Imaging Results: positive Final report reviewed and Read independently Diagnostic Imaging Comments: Chest x-ray 03/11 Formal read with small right pleural effusion and right lung base opacity. Prominent interstitium. Possible edema. Cardiomegaly Possible left upper lung granuloma. Sepsis Event Note (H) Evaluation Current Stage of Sepsis: Severe sepsis Possible source of Sepsis: positive Pulmonary Sepsis Criteria Sepsis Criteria: Recorded Heart Rate greater than 90 bpm, Recorded Respiratory Rate greater than 20, Respiratory: Increasing oxygen requirements and WBC count greater than 12,000 or less than 4000 Assessment/Plan Problem List (1) Hypoxia: Impression: Improving, weaned down to 4 L last night, remains on 4 L this morning. Good saturations. Afebrile. Presented with new hypoxia. Not on oxygen at baseline. Requiring 5 to 7 L on initial arrival. - Managing as below - Wean oxygen as tolerated, goal saturation greater than 92% - Nightly CPAP as below (2) Congestive heart failure: Impression: Robust response to 80 mg IV Lasix twice daily started on 03/11. She had 2.5 L out. Will aim to repeat this today to continue to treat her hypoxemic respiratory failure Patient has a known history of congestive heart failure. She has an echo that was done here in April that reveals heart failure with preserved ejection fraction. EF 65 to 70%. Moderate right ventricular enlargement and mild right ventricular systolic function. She has moderate aortic stenosis on that exam. She is on HFrEF meds (BB, ARB, MRA) so unsure if she may have improved EF. Cannot find her index echo. She is on Aldactone 25 mg daily, metoprolol succinate, losartan [employer] BNP elevated to 174 on admission. Slightly down from BNP in the ED 2 days prior to admission. - Continue losartan, Aldactone, Toprol - Repeat IV Lasix 80 mg x 2 today - BMP and magnesium AM, Replenish K as needed - Strict IO, daily weight - Cardiac diet Qualifiers: Heart failure chronicity: acute on chronic Heart failure type: u nspecified Qualified Code(s): I50.9 - Heart failure, unspecified (3) Rhinovirus infection: (4) Asthma: Qualifiers: Asthma complication type: unspecified Asthma persistence: intermittent Asthma severity: mild Qualified Code(s): J45.20 - Mild intermittent asthma, uncomplicated (5) Pneumonia: Impression: Patient's x-ray surveillance more consistent with fluid overload as above. Appreciate radiology read. Her procalcitonin from 03/11 is negative. We will discontinue antibiotics early. She has rhinovirus on initial nasal swab, which may be explaining some of her cough. Her cough is fairly pronounced, and disruptive. It causes her a lot of distress. She has not able to produce much with it. Recall that she does not have a diagnosis of COPD. She has an FEV1/FVC of 0.79 from 2017. Former smoker [id number]. She does have a history of asthma, uses a as needed inhaler. She received steroids and breathing treatment in the ambulance which improved some of her symptoms. Her symptoms did not change significantly over the 2 days she received steroids. This is not concordant with expected improvement in asthma. I have opted for early discontinuation of steroids, as of 03/11. Will monitor for worsening reactive airway disease. Unfortunately sputum culture was collected on admission, but was not received in the lab. - Discontinue antibiotics early 03/12. - DuoNebs as needed - Started guaifenesin DM - Flutter valve - Intranasal fluticasone Qualifiers: Laterality: right Lung location: lower lobe of lung Pneumonia type: d ue to unspecified organism Qualified Code(s): J18.9 - Pneumonia, unspecified organism (6) Atrial fibrillation: Impression: Currently rate controlled On diltiazem, Toprol and DOAC - Continue home meds Qualifiers: Atrial fibrillation type: longstanding persistent Qualified Code(s): I 48.11 - Longstanding persistent atrial fibrillation (7) Obesity hypoventilation syndrome: (8) RADHA (obstructive sleep apnea): Impression: Patient has an overlap of obesity hypoventilation syndrome and RADHA. She is on CPAP at home. She has brought in her machine, which she uses with hydrated oxygen nightly. - Okay to use home CPAP (9) Sepsis: Impression: Remains resolved. Patient's vital signs remained stable. Blood pressure normotensive, not tachycardic. Afebrile. Patient initially presented with septic vital signs, tachycardia, leukocytosis, tachypnea. Severe sepsis by account of acute hypoxemic respiratory failure. Septic physiology is resolved by03/10. Antihypertensives resumed 03/11. She was maintained on her atrial fibrillation medications. Did not have any hypotension. - Follow-up blood cultures, NGTD Qualifiers: Acute respiratory failure type: with hypoxia Sepsis acute organ dysfunction status: with acute organ dysfunction Sepsis type: sepsis due to unspecified organism Severe sepsis acute organ dysfunction type: acute respiratory failure Severe sepsis shock status: without septic shock Qualified Code(s): A41.9 - Sepsis, unspecified organism; R65.20 - Severe sepsis without septic shock; J96.01 - Acute respiratory failure with hypoxia (10) Hypothyroid: Impression: Continuing home T4 dose Qualifiers: Hypothyroidism type: acquired Qualified Code(s): E03.9 - Hypothyroidism, unspecified (11) Morbid obesity: Impression: Noted (12) Abnormal chest xray: Impression: Chest x-ray from 03/09 redemonstrates right lung base opacity as well as possible left upper lung granuloma. Unclear significance overall. She had a very similar right basilar opacity and 2022. Per the read at least, cannot see image. - Going to try and find the old images, may send for CT scan if RLL consolidation looks similar to old CXR - SHould have cross sectional images outpatient if not performed here.
[2025-03-12] MEDS: POTASSIUM CHLORIDE 20 MEQ TABLET PO ONE ×2 (10:27→10:28)
[2025-03-12] MEDS: NYSTATIN POWDER 15 GM TOP SCH (14:15)
[2025-03-12] MEDS: NYSTATIN CREAM 15 GM TUBE TOP SCH (22:44)
[2025-03-13 05:29] LABS: HCT - HEMATOCRIT 39.8 % (37.0-47.0); HGB - HEMOGLOBIN 13.1 g/dL (12.0-16.0); MEAN PLATELET VOLUME 8.7 fL (7.9-10.8); PLT - PLATELET COUNT 350 10^3/uL (130-450); RED CELL DISTRIBUTION WIDTH 14.1 % (12.0-15.0)
[2025-03-13 05:37] LABS: ABNORMAL LYMPHS % (MANUAL) 0 %; BAND NEUTROPHILS % (MANUAL) 0 %; BASOPHILS # (MANUAL) 0.0 10^3/uL (0-0.1)
[2025-03-13 05:50] LABS: BUN - BLOOD UREA NITROGEN 31.0 mg/dL (6-20); CARBON DIOXIDE - CO2 31.0 mmol/L (21-32); CREATININE 0.7 mg/dL (0.6-1.3); GFR - MDRD 81.0 (>89)
[2025-03-13 05:52] LABS: EOSINOPHILS # (MANUAL) 0.5 10^3/uL (0-0.7); LYMPHOCYTES # (MANUAL) 2.2 10^3/uL (1.5-3.5); LYMPHOCYTES % (MANUAL) 14 %; MONOCYTES # (MANUAL) 1.1 10^3/uL (0.0-1.0); NEUTROPHILS # (MANUAL) 12.1 10^3/uL (1.5-6.6)
[2025-03-13 05:53] LABS: PLATELET ESTIMATE, MANUAL NORMAL (130-450,000) (NORMAL); PLATELET MORPHOLOGY NORMAL APPEARANCE (NORMAL); RBC MORPHOLOGY (MULTIPLE) NORMAL APPEARANCE (NORMAL); WBC MORPHOLOGY (MULTIPLE) NORMAL APPEARANCE (NORMAL)
--- NOTE | 2025-03-13 09:38 | PROVIDER PROGRESS NOTE ---
Subjective Prog Note Date Prog Note Date: 03/13/25 Prog Note Time: 09:34 Subjective Subjective: Patient continues to be on 4 L of oxygen this morning. Subjectively she feels better. She feels like her breathing is improved. She remains with upper respiratory congestion. She diuresed well yesterday, but had significant intake. She was started on a fluid restriction late yesterday, continues to have stable electrolytes and normal kidney function. She remains with persistent leukocytosis. Denies fever or chills. Cough improved with antitussives. Wet but remains nonproductive. Does not go into coughing fits since starting on dextromethorphan. Continue IV diuresis today, BMP tomorrow. May discontinue if this is mostly pneumonia. Given discordant improvement with minimal change in her respiratory status, will get CT of her lungs today. Given her leukocytosis, pending imaging findings may start back on antibiotics. Will add oxymetazoline to help with intranasal decongestion. Current Medications Current Medications Current Medications: Current Medications Generic Name Dose Route Start Last Admin Trade Name Freq PRN Reason Stop Dose Admin Acetaminophen 650 mg 03/09/25 16:31 Acetaminophen 325 Mg Tablet PO Q4HR PRN Pain 1 to 4, or Fever Albuterol 2.5 mg 03/09/25 16:54 03/10/25 22:22 Albuterol Neb 2.5 Mg/3 Ml INH 2.5 mg RTQ4H PRN Administration Wheezing Apixaban 5 mg 03/09/25 21:00 03/13/25 09:14 Apixaban 5 Mg Tablet PO 5 mg BID CINDI Administration Atorvastatin Calcium 40 mg 03/10/25 09:00 03/13/25 09:16 Atorvastatin 40 Mg Tablet PO 40 mg DAILY CINDI Administration Diltiazem HCl 240 mg 03/09/25 21:00 03/13/25 09:16 Diltiazem Cd 240 Mg Capsule PO 240 mg BID CINDI Administration Fluticasone Propionate 1 sprays 03/10/25 09:00 03/12/25 09:03 Fluticasone Nasal [place] AURELIO 1 mcg DAILY CIDNI Administration Furosemide 80 mg 03/13/25 12:00 Furosemide 40 Mg/4 Ml Vial IVP Q6H CINDI Guaifenesin 10 ml 03/12/25 09:26 03/12/25 22:42 Guaifenesin/Dextromethorphan 10 Ml Udc PO 10 ml Q6HR PRN Administration Cough Levothyroxine Sodium 100 mcg 03/10/25 07:00 03/13/25 06:07 Levothyroxine 100 Mcg Tablet PO 100 mcg QDAC CINDI Administration Levothyroxine Sodium 75 mcg 03/10/25 07:00 03/13/25 06:07 Levothyroxine 75 Mcg Tablet PO 75 mcg QDAC CINDI Administration Losartan Potassium 25 mg 03/11/25 10:00 03/13/25 09:15 Losartan 50 Mg Tablet PO 25 mg BID CINDI Administration Metoprolol Succinate 200 mg 03/10/25 09:00 03/13/25 09:16 Metoprolol Succinate 50 Mg Tablet PO 200 mg DAILY CINDI Administration Montelukast Sodium 10 mg 03/09/25 21:00 03/12/25 22:43 Montelukast 10 Mg Tablet PO 10 mg QPM CINDI Administration Nystatin 1 applic 03/12/25 21:00 03/12/25 22:44 Nystatin Cream 15 Gm Tube TOP Not Given BID CINDI Ondansetron HCl 4 mg 03/09/25 16:31 Ondansetron Odt 4 Mg Tablet TL Q6HR PRN Nausea / Vomiting Ondansetron HCl 4 mg 03/09/25 16:31 Ondansetron 4 Mg/2 Ml Vial IVP Q6HR PRN Nausea / Vomiting Oxycodone HCl 5 mg 03/09/25 16:31 Oxycodone 5 Mg Tablet PO Q4HR PRN Pain 5 to 7 Sodium Chloride 10 ml 03/09/25 16:31 Sodium Chloride Flush 0.9% 10 Ml Syringe IVP PRN PRN NEEDED PER PROVIDER ORDERS Sodium Chloride 10 ml 03/09/25 17:00 03/13/25 09:17 Sodium Chloride Flush 0.9% 10 Ml Syringe IVP 10 ml 0100,0900,1700 CINDI Administration Spironolactone 25 mg 03/10/25 09:00 03/13/25 09:16 Spironolactone 25 Mg Tablet PO 25 mg DAILY CINDI Administration Zolpidem Tartrate 5 mg 03/09/25 21:00 03/12/25 22:43 Zolpidem 5 Mg Tablet PO 5 mg HS CINDI Administration Objective Vital Signs/Intake & Output Vital Signs: Vital Signs x48h Temp Pulse Pulse Resp BP Pulse Ox O2 Flow Rate 03/13/25 09:05 82 114/63 03/13/25 08:40 36.4 C L 69 16 104/65 94 4 Intake & Output: Intake & Output 03/10/25 03/11/25 03/12/25 03/13/25 23:59 23:59 23:59 23:59 Intake Total 1030 / 1030 1800 / 1800 2170 / 2170 720 / 720 Output Total 975 / 975 3925 / 3925 2250 / 2250 1110 / 1110 Balance 55 / 55 -2125 / -2125 -80 / -80 -390 / -390 Weight (kg) 128.5 kg 125.5 kg 125 kg Objective Comments/Other: GEN: No acute distress HEENT: NC/AT, normal appearance of external ears and nose. Cardiac: Irregular rhythm, rate controlled. No murmurs appreciated. No visible JVP elevation, limited by habitus. Trace to 1+ bilateral pitting edema. Pulm: Fine rales throughout. No significant rhonchi on the right, though distant lung sounds. Wet cough but nonproductive. Normal effort on 4 L. Abdomen: Obese, nontender, soft, no rebound tenderness or guarding. Extremities: Moves all 4 extremities equally. Normal tone. Neuro: Face symmetric, CN II through XII intact grossly. No focal neurologic deficits. Psych: Mood euthymic with congruent affect. Good fund of knowledge. Judgment intact. Lab Results 03/13/25 05:22 03/13/25 05:22 Other Labs: Lab Results x24hrs 03/13/25 Range/Units 05:22 WBC 15.9 H (4.8-10.8) x10^3/uL RBC 4.25 (4.20-5.40) 10^6/uL Hgb 13.1 (12.0-16.0) g/dL Hct 39.8 (37.0-47.0) % MCV 93.6 (81.0-99.0) fL MCH 30.8 (27.0-31.0) pg MCHC 32.9 (32.0-36.0) g/dL RDW 14.1 (12.0-15.0) % Plt Count 350 (130-450) 10^3/uL MPV 8.7 (7.9-10.8) fL Neut # (Auto) Not Reportable Lymph # (Auto) Not Reportable [place] # (Auto) Not Reportable Eos # (Auto) Not Reportable Baso # (Auto) Not Reportable Absolute Nucleated RBC Not Reportable Total Counted 100 Band Neuts % (Manual) 0 (0 - 10) % Abnorm Lymph % (Manual) 0 % Nucleated RBC % Not Reportable Neutrophils # (Manual) 12.1 H (1.5-6.6) 10^3/uL Lymphocytes # (Manual) 2.2 (1.5-3.5) 10^3/uL Monocytes # (Manual) 1.1 H (0.0-1.0) 10^3/uL Eosinophils # (Manual) 0.5 (0-0.7) 10^3/uL Basophils # (Manual) 0.0 (0-0.1) 10^3/uL Differential Comment MANUAL DIFFERENTIAL WBC Morphology NORMAL APPEARANCE (NORMAL) Platelet Estimate NORMAL (130-450,000) (NORMAL) Platelet Morphology NORMAL APPEARANCE (NORMAL) RBC Morph Micro Appear NORMAL APPEARANCE (NORMAL) Sodium 136 (135-145) mmol/L Potassium 3.9 (3.5-4.5) mmol/L Chloride 101 (101-111) mmol/L Carbon Dioxide 31 (21-32) mmol/L Anion Gap 4.0 L (6-13) BUN 31 H (6-20) mg/dL Creatinine 0.7 (0.6-1.3) mg/dL Estimated GFR (MDRD) 81 L (>89) Glucose 119 H (74-104) mg/dL Calcium 8.9 (8.5-10.3) mg/dL Magnesium 1.9 (1.7-2.3) mg/dL Diagnostic Imaging Diagnostic Imaging Results: positive Final report reviewed and Read independently Diagnostic Imaging Comments: Chest x-ray 03/11 Formal read with small right pleural effusion and right lung base opacity. Prominent interstitium. Possible edema. Cardiomegaly Possible left upper lung granuloma. Sepsis Event Note (H) Evaluation Current Stage of Sepsis: Severe sepsis Possible source of Sepsis: positive Pulmonary Sepsis Criteria Sepsis Criteria: Recorded Heart Rate greater than 90 bpm, Recorded Respiratory Rate greater than 20, Respiratory: Increasing oxygen requirements and WBC count greater than 12,000 or less than 4000 Assessment/Plan Problem List (1) Hypoxia: Impression: Stable but not improving as expected. Still on 4L. She has a clear consolidation on her CT scan. Pending formal read. Presented with new hypoxia. Not on oxygen at baseline. Requiring 5 to 7 L on initial arrival. - Managing as below - Wean oxygen as tolerated, goal saturation greater than 92% - Nightly CPAP as below (2) Congestive heart failure: Impression: She has been having good urine output with 80 mg IV Lasix. She was able to keep up with us with fluid intake yesterday. We started her on a fluid restriction later in the day. She has peed out over 6 L, but she remains on the same level of oxygen as above. Likely will get less aggressive with diuretics and try and focus more on treating the consolidation. Patient has a known history of congestive heart failure. She has an echo that was done here in April that reveals heart failure with preserved ejection fraction. EF 65 to 70%. Moderate right ventricular enlargement and mild right ventricular systolic function. She has moderate aortic stenosis on that exam. She is on HFrEF meds (BB, ARB, MRA) so unsure if she may have improved EF. Cannot find her index echo. She is on Aldactone 25 mg daily, metoprolol succinate, losartan RN DIALYSIS - Continue losartan, Aldactone, Toprol - Continue IV Lasix 80 mg today x 2. Likely discontinue IV diuresis thereafter as her CT today did not show significant interstitial infiltrate. - Resume home torsemide tomorrow - BMP and magnesium AM, Replenish as needed - Strict IO, daily weight - Cardiac diet Qualifiers: Heart failure chronicity: acute on chronic Heart failure type: u nspecified Qualified Code(s): I50.9 - Heart failure, unspecified (3) Rhinovirus infection: (4) Asthma: (5) Pneumonia: Impression: Further imaging today with CT reveals what appears to be a right lobar infiltrate. She has had no prior CT scans of her chest. Malignancy is not ruled out, but with elevated leukocytosis and cough would favor lobar pneumonia. Her cough is improved with antitussives. Recall that she does not have a diagnosis of COPD. She has an FEV1/FVC of 0.79 from 2017. Former smoker [id number]. She does have a history of asthma, uses a as needed inhaler. She received steroids and breathing treatment in the ambulance which improved some of her symptoms. Her symptoms did not change significantly over the 2 days she received steroids. This is not concordant with expected improvement in asthma. I have opted for early discontinuation of steroids, as of 03/11. Will monitor for worsening reactive airway disease. Unfortunately sputum culture was collected on admission, but was not received in the lab. Malignancy is not ruled out, but she lacks typical B symptoms. She would need a biopsy, likely transcutaneous. - Restarting antibiotics with ceftriaxone and azithromycin 500 mg - Follow-up blood cultures, NGTD - DuoNebs as needed - As needed guaifenesin DM - Flutter valve - Intranasal fluticasone, Oxymetazoline - Favor treating for pneumonia first and getting repeat CT scan of her lungs when and if her symptoms improve. Likely 3-month interval (6) Atrial fibrillation: Impression: Currently rate controlled On diltiazem, Toprol and DOAC - Continue home meds Qualifiers: Atrial fibrillation type: longstanding persistent Qualified Code(s): I 48.11 - Longstanding persistent atrial fibrillation (7) Obesity hypoventilation syndrome: (8) RADHA (obstructive sleep apnea): Impression: Patient has an overlap of obesity hypoventilation syndrome and RADHA. She is on CPAP at home. She has brought in her machine, which she uses with hydrated oxygen nightly. - Okay to use home CPAP (9) Sepsis: Impression: Remains resolved. Patient's vital signs remained stable. Blood pressure normotensive, not tachycardic. Afebrile. Patient initially presented with septic vital signs, tachycardia, leukocytosis, tachypnea. Severe sepsis by account of acute hypoxemic respiratory failure. Septic physiology is resolved by03/10. Antihypertensives resumed 03/11. She was maintained on her atrial fibrillation medications. Did not have any hypotension. - Follow-up blood cultures, NGTD (10) Hypothyroid: Impression: Continuing home T4 dose Qualifiers: Hypothyroidism type: acquired Qualified Code(s): E03.9 - Hypothyroidism, unspecified (11) Morbid obesity: Impression: Noted
[2025-03-13] MEDS: OXYMETAZOLINE NASAL SPRAY NAS SCH (12:24)
[2025-03-13] MEDS: AZITHROMYCIN 250 MG TABLET PO SCH (12:25)
[2025-03-13] MEDS: SODIUM CHLORIDE FLUSH 0.9% 10 ML SYRINGE IVP PRN (12:27)
[2025-03-13] MEDS: FUROSEMIDE 40 MG/4 ML VIAL IVP SCH (12:27)
--- NOTE | 2025-03-13 12:50 | CT Report ---
PROCEDURE: CT Chest WO INDICATIONS: Persistant hypoxemia TECHNIQUE: A CT scan of the chest was performed. Intravenous contrast media was not administered. Images were recorded and evaluated at appropriate window settings. Reformats: axial MIP of the chest, coronal and sagittal. For radiation dose reduction, the following was used: automated exposure control, adjustment of mA and/or kV according to patient size. COMPARISON: X-rays 03/07/2025, 03/09/2025, 03/11/2025 FINDINGS: Image quality: Diagnostic. Chest wall and lower neck: No thyroid nodule which requires sonographic follow up. No axillary or supraclavicular adenopathy by size. Lungs and pleura: Masslike lesion in the right middle lobe. This stays within the confines of the fissures. Dependent atelectasis in the lung bases. Mediastinum: Heart size is enlarged. No pericardial effusion. No large vessel abnormality. Enlarged right hilar and right mediastinal lymph nodes. For instance, the right upper paratracheal node measures 2.8 cm short axis (series 2, image 32). Bones: No aggressive osseous abnormality. Upper Abdomen: 1.8 cm right adrenal nodule with indeterminate attenuation (38 Hounsfield unit). Mild hypertrophy of the left adrenal gland. IMPRESSION: Masslike lesion in the right middle lobe, with enlarged right hilar and mediastinal lymph nodes. Findings are concerning for malignancy. Differential includes consolidation as the lesion stays within the confines of the fissures. Correlate with leukocytosis. If there is no elevated white blood count, consider tissue sampling. 1.8 cm right adrenal nodule with indeterminate attenuation. This could represent a metastasis. Attention on follow-up. Findings marked for urgent communication in the PACS; ordering provider's office will be notified shortly Reviewed by: Hardik Quiñonez MD on 03/13/2025 12:47 PM PDT Approved by: Hardik Quiñonez MD on 03/13/2025 12:47 PM PDT Station ID: [id number]
[2025-03-13] MEDS: cefTRIAXone 2 GM in SODIUM CHLORIDE 0.9% MINIBAG 100 ML IV SCH (13:42)
[2025-03-14 05:33] LABS: HCT - HEMATOCRIT 41.7 % (37.0-47.0); HGB - HEMOGLOBIN 13.6 g/dL (12.0-16.0); MEAN PLATELET VOLUME 9.0 fL (7.9-10.8); PLT - PLATELET COUNT 346 10^3/uL (130-450); RED CELL DISTRIBUTION WIDTH 14.3 % (12.0-15.0)
[2025-03-14 05:39] LABS: ABNORMAL LYMPHS % (MANUAL) 0 %; BAND NEUTROPHILS % (MANUAL) 0 %; BASOPHILS # (MANUAL) 0.0 10^3/uL (0-0.1)
[2025-03-14 05:49] LABS: BUN - BLOOD UREA NITROGEN 28.0 mg/dL (6-20); CARBON DIOXIDE - CO2 31.0 mmol/L (21-32); CREATININE 0.7 mg/dL (0.6-1.3); GFR - MDRD 81.0 (>89)
[2025-03-14 05:58] LABS: EOSINOPHILS # (MANUAL) 0.1 10^3/uL (0-0.7); LYMPHOCYTES # (MANUAL) 2.6 10^3/uL (1.5-3.5); LYMPHOCYTES % (MANUAL) 18 %; MONOCYTES # (MANUAL) 2.0 10^3/uL (0.0-1.0); MYELOCYTES % (MANUAL) 1 %; NEUTROPHILS # (MANUAL) 9.5 10^3/uL (1.5-6.6); PLATELET ESTIMATE, MANUAL NORMAL (130-450,000) (NORMAL); PLATELET MORPHOLOGY NORMAL APPEARANCE (NORMAL); RBC MORPHOLOGY (MULTIPLE) NORMAL APPEARANCE (NORMAL); WBC MORPHOLOGY (MULTIPLE) NORMAL APPEARANCE (NORMAL)
--- NOTE | 2025-03-14 07:36 | PROVIDER PROGRESS NOTE ---
Subjective Prog Note Date Prog Note Date: 03/14/25 Prog Note Time: 07:47 Subjective Pt reports feeling: Improved Subjective: Patient is now down to 3L of oxygen this morning, saturating at 88-90. She is typically saturating 88-92 on RA at baseline. She uses 3L O2 on CPAP at nighttime, and has been consistently using during her hospital stay. Overall she is feeling better. Still with productive cough, but improved since admission and on antitussives. Less coughing fits. No fevers or chills. Leukocytosis trending down. Restarted on IV antibiotics. Remains well diuresed, dry. Now transitioned to her home oral furosemide. Her last dry weight check at home was 288lbs. She has an impressive 60lb intentional weight loss over the last year with improved leg swelling. Continues to use 4WW at home. Current Medications Current Medications Current Medications: Current Medications Generic Name Dose Route Start Last Admin Trade Name Freq PRN Reason Stop Dose Admin Acetaminophen 650 mg 03/09/25 16:31 Acetaminophen 325 Mg Tablet PO Q4HR PRN Pain 1 to 4, or Fever Albuterol 2.5 mg 03/09/25 16:54 03/13/25 16:15 Albuterol Neb 2.5 Mg/3 Ml INH 2.5 mg RTQ4H PRN Administration Wheezing Apixaban 5 mg 03/09/25 21:00 03/13/25 21:19 Apixaban 5 Mg Tablet PO 5 mg BID CINDI Administration Atorvastatin Calcium 40 mg 03/10/25 09:00 03/13/25 09:16 Atorvastatin 40 Mg Tablet PO 40 mg DAILY CINDI Administration Azithromycin 500 mg 03/13/25 12:00 03/13/25 12:25 Azithromycin 250 Mg Tablet PO 03/15/25 09:01 500 mg DAILY CINDI Administration Diltiazem HCl 240 mg 03/09/25 21:00 03/13/25 21:19 Diltiazem Cd 240 Mg Capsule PO 240 mg BID CINDI Administration Fluticasone Propionate 1 sprays 03/10/25 09:00 03/13/25 09:40 Fluticasone Nasal [place] AURELIO 1 sprays DAILY CINDI Administration Furosemide 20 mg 03/14/25 09:00 Furosemide 20 Mg Tablet PO DAILY CINDI Guaifenesin 10 ml 03/12/25 09:26 03/13/25 19:42 Guaifenesin/Dextromethorphan 10 Ml Udc PO 10 ml Q6HR PRN Administration Cough Ceftriaxone Sodium 2 gm/ 100 mls @ 200 mls/hr 03/13/25 13:10 03/13/25 14:15 Sodium Chloride IV Infused DAILY CINDI Infusion Levothyroxine Sodium 100 mcg 03/10/25 07:00 03/14/25 05:29 Levothyroxine 100 Mcg Tablet PO 100 mcg QDAC CINDI Administration Levothyroxine Sodium 75 mcg 03/10/25 07:00 03/14/25 05:29 Levothyroxine 75 Mcg Tablet PO 75 mcg QDAC CINDI Administration Losartan Potassium 25 mg 03/11/25 10:00 03/13/25 21:18 Losartan 50 Mg Tablet PO 25 mg BID CINDI Administration Metoprolol Succinate 200 mg 03/10/25 09:00 03/13/25 09:16 Metoprolol Succinate 50 Mg Tablet PO 200 mg DAILY CINDI Administration Montelukast Sodium 10 mg 03/09/25 21:00 03/13/25 21:18 Montelukast 10 Mg Tablet PO 10 mg QPM CINDI Administration Nystatin 1 applic 03/12/25 21:00 03/13/25 21:20 Nystatin Cream 15 Gm Tube TOP 1 applic BID CINDI Administration Ondansetron HCl 4 mg 03/09/25 16:31 Ondansetron Odt 4 Mg Tablet TL Q6HR PRN Nausea / Vomiting Ondansetron HCl 4 mg 03/09/25 16:31 Ondansetron 4 Mg/2 Ml Vial IVP Q6HR PRN Nausea / Vomiting Oxycodone HCl 5 mg 03/09/25 16:31 Oxycodone 5 Mg Tablet PO Q4HR PRN Pain 5 to 7 Oxymetazoline HCl 2 sprays 03/13/25 10:00 03/13/25 21:19 Oxymetazoline Nasal [place] AURELIO 03/15/25 09:59 Not Given BID CINDI Sodium Chloride 10 ml 03/09/25 16:31 03/13/25 13:42 Sodium Chloride Flush 0.9% 10 Ml Syringe IVP 10 ml PRN PRN Administration NEEDED PER PROVIDER ORDERS Sodium Chloride 10 ml 03/09/25 17:00 03/14/25 01:41 Sodium Chloride Flush 0.9% 10 Ml Syringe IVP 10 ml 0100,0900,1700 CINDI Administration Spironolactone 25 mg 10/17/25 09:00 03/13/25 09:16 Spironolactone 25 Mg Tablet PO 25 mg DAILY CINDI Administration Zolpidem Tartrate 5 mg 03/09/25 21:00 03/13/25 21:18 Zolpidem 5 Mg Tablet PO 5 mg HS CINDI Administration Objective Vital Signs/Intake & Output Reviewed Vital Signs: Yes Vital Signs: Vital Signs x48h Pulse Ox O2 Flow Rate 03/14/25 01:41 88 L 5 Intake & Output: Intake & Output 03/11/25 03/12/25 03/13/25 03/14/25 23:59 23:59 23:59 23:59 Intake Total 1800 / 1800 2170 / 2170 1170 / 1170 150 / 150 Output Total 3925 / 3925 2250 / 2250 2210 / 2210 150 / 150 Balance -2125 / -2125 -80 / -80 -1040 / -1040 0 / 0 Weight (kg) 125.5 kg 125 kg 125 kg Objective Comments/Other: Gen: Well nourished and well developed. No acute distress. Pleasant, conversational. Heent: Normocephalic/atraumatic, normal appearance of external ears and nose. Cardiac: Irregular rhythm, rate controlled. No murmurs appreciated. No visible JVP elevation, limited by habitus. No pitting edema. Pulm: Normal effort on 3 L. Fine inspiratory rales throughout. Distant lung sounds on auscultation. Wet cough. Abdomen: Rounded, soft, nontender, no rebound tenderness or guarding. Extremities: Moves all 4 extremities equally. Normal tone. Neuro: Face symmetric, CN II through XII intact grossly. No focal neurologic deficits. Psych: Mood euthymic with congruent affect. Good fund of knowledge. Judgment intact. Lab Results 03/14/25 05:15 03/14/25 05:15 Other Labs: Lab Results x24hrs 03/14/25 Range/Units 05:15 WBC 14.4 H (4.8-10.8) x10^3/uL RBC 4.45 (4.20-5.40) 10^6/uL Hgb 13.6 (12.0-16.0) g/dL Hct 41.7 (37.0-47.0) % MCV 93.7 (81.0-99.0) fL MCH 30.6 (27.0-31.0) pg MCHC 32.6 (32.0-36.0) g/dL RDW 14.3 (12.0-15.0) % Plt Count 346 (130-450) 10^3/uL MPV 9.0 (7.9-10.8) fL Neut # (Auto) Not Reportable Lymph # (Auto) Not Reportable [place] # (Auto) Not Reportable Eos # (Auto) Not Reportable Baso # (Auto) Not Reportable Absolute Nucleated RBC Not Reportable Total Counted 100 Band Neuts % (Manual) 0 (0 - 10) % Abnorm Lymph % (Manual) 0 % Myelocytes % 1 H ( - 0) % Nucleated RBC % Not Reportable Neutrophils # (Manual) 9.5 H (1.5-6.6) 10^3/uL Lymphocytes # (Manual) 2.6 (1.5-3.5) 10^3/uL Monocytes # (Manual) 2.0 H (0.0-1.0) 10^3/uL Eosinophils # (Manual) 0.1 (0-0.7) 10^3/uL Basophils # (Manual) 0.0 (0-0.1) 10^3/uL Differential Comment MANUAL DIFFERENTIAL WBC Morphology NORMAL APPEARANCE (NORMAL) Platelet Estimate NORMAL (130-450,000) (NORMAL) Platelet Morphology NORMAL APPEARANCE (NORMAL) RBC Morph Micro Appear NORMAL APPEARANCE (NORMAL) Sodium 134 L (135-145) mmol/L Potassium 3.6 (3.5-4.5) mmol/L Chloride 98 L (101-111) mmol/L Carbon Dioxide 31 (21-32) mmol/L Anion Gap 5.0 L (6-13) BUN 28 H (6-20) mg/dL Creatinine 0.7 (0.6-1.3) mg/dL Estimated GFR (MDRD) 81 L (>89) Glucose 111 H (74-104) mg/dL Calcium 8.9 (8.5-10.3) mg/dL 03-09-2025 MRSA nares -negative Blood cultures -negative growth to date. 03-14-2025 Sputum culture ordered, awaiting collection Diagnostic Imaging Diagnostic Imaging Results: positive Final report reviewed and Read independently Diagnostic Imaging Comments: Chest x-ray 03/11 compared to 03/09. Unchanged small right pleural effusion and right lung base opacity. CT Chest without IV 03-13-2025, no prior comparisons. Masslike lesion in the right middle lobe, with enlarged right hilar and mediastinal lymph nodes. Findings are concerning for malignancy. Differential includes consolidation as the lesion stays within the confines of the fissures. Correlate with leukocytosis. If there is no elevated white blood count, consider tissue sampling. Sepsis Event Note (H) Evaluation Current Stage of Sepsis: Severe sepsis Possible source of Sepsis: positive Pulmonary Sepsis Criteria Sepsis Criteria: Recorded Heart Rate greater than 90 bpm, Recorded Respiratory Rate greater than 20, Respiratory: Increasing oxygen requirements and WBC count greater than 12,000 or less than 4000 Assessment/Plan Problem List (1) Hypoxia: (2) Pneumonia: Qualifiers: Laterality: right Lung location: lower lobe of lung Pneumonia type: d ue to unspecified organism Qualified Code(s): J18.9 - Pneumonia, unspecified organism (3) Rhinovirus infection: Impression: Improving on antibiotics, now on 3L NC. Leukocytosis downtrending and remains afebrile. Cough is productive but improved on guaifenesin. Mostly likely due to bacterial superimposed viral pneumonia. She has a clear RML consolidation on CT scan, consistent with opacity seen on CXR. Positive for rhinovirus. MRSA nares negative. 03-09-2025 Blood cx ngd. No recent hospitalizations. Neg procal. CRP 1.6. Not on oxygen at baseline. Required 5-7L on arrival to ED. Received ceftriaxone and azithromycin (03/09-03/14). - Given that she is still requiring 3L will continue treatment. - Continue IV ceftriaxone 2gm, tentative plan for 7-10 day duration. - Stop azithromycin - Sputum culture re-ordered - Will need RT to evaluate exercise desaturations - Wean oxygen as tolerated, goal saturation greater than 88% - Recommend repeat CT in 3 months to to r/o underlying malignancy. (4) Congestive heart failure: Impression: She is dry on exam, good urine output. Remains below her reported home dry weight of 288lbs. Transitioned to home oral furosemide 20mg. ECHO shows HFpEF with EF 65 to 70%. Moderate right ventricular enlargement and mild right ventricular systolic function. 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 - Monitor BMP AM, replenish as needed - Strict IO, daily weight - Cardiac diet Qualifiers: Heart failure chronicity: acute on chronic Heart failure type: u nspecified Qualified Code(s): I50.9 - Heart failure, unspecified (5) Asthma: Impression: Not in acute exacerbation. No wheezing on exam and improving cough. On daily Advair and albuterol prn at home, without recent exacerbations. Former smoker, quit 40+ years ago, 15 pyh. Does not have formal COPD diagnosis. Spirometry for 2017 shows FEV1/FVC of 0.79 from 2017. She received steroids and breathing treatment in the ambulance which improved some of her symptoms. Received few doses of steroids without significant improvement in respiratory status and d/c 03-11. - Continue albuterol prn Qualifiers: Asthma complication type: unspecified Asthma persistence: intermittent Asthma severity: mild Qualified Code(s): J45.20 - Mild intermittent asthma, uncomplicated (6) Obesity hypoventilation syndrome: (7) RADHA (obstructive sleep apnea): Impression: Patient has an overlap of obesity hypoventilation syndrome and RADHA. She is on CPAP at home. She has brought in her machine, which she uses with hydrated 3L oxygen nightly. - Okay to use home CPAP (8) Diabetes type 2: Impression: A1c 6.7, on metformin at home. Glucose has remained <140 during the duration of her stay without SSI. - Continue to monitor glucose - Cardiac diet - Resume metforming as outpatient. (9) Atrial fibrillation: Impression: Currently rate controlled On diltiazem, Toprol and DOAC - Continue home meds Qualifiers: Atrial fibrillation type: longstanding persistent Qualified Code(s): I 48.11 - Longstanding persistent atrial fibrillation (10) Sepsis: Impression: Remains resolved. Patient's vital signs remained stable. Blood pressure normotensive, not tachycardic. Afebrile. Patient initially presented with septic vital signs, tachycardia, leukocytosis, tachypnea. Severe sepsis by account of acute hypoxemic respiratory failure. Septic physiology is resolved by03/10. Antihypertensives resumed 03/11. She was maintained on her atrial fibrillation medications. Did not have any hypotension. - Follow-up blood cultures, NGTD Qualifiers: Acute respiratory failure type: with hypoxia Sepsis acute organ dysfunction status: with acute organ dysfunction Sepsis type: sepsis due to unspecified organism Severe sepsis acute organ dysfunction type: acute respiratory failure Severe sepsis shock status: without septic shock Qualified Code(s): A41.9 - Sepsis, unspecified organism; R65.20 - Severe sepsis without septic shock; J96.01 - Acute respiratory failure with hypoxia (11) Hypothyroid: Impression: Continuing home T4 dose Qualifiers: Hypothyroidism type: acquired Qualified Code(s): E03.9 - Hypothyroidism, unspecified (12) Morbid obesity: Impression: Class II obesity noted
[2025-03-14] MEDS: FUROSEMIDE 20 MG TABLET PO SCH (08:57)
[2025-03-14] MEDS ORDERED: cefTRIAXone 2 GM in SODIUM CHLORIDE 0.9% MINIBAG 100 ML IV SCH (09:00)
[2025-03-14 10:40] LABS: ESTIMATED AVERAGE GLUCOSE 146 mg/dL (70-100); HEMOGLOBIN A1c% 6.7 % (4.27-6.07)
[2025-03-15 05:25] LABS: HCT - HEMATOCRIT 41.0 % (37.0-47.0); HGB - HEMOGLOBIN 13.0 g/dL (12.0-16.0); MEAN PLATELET VOLUME 8.9 fL (7.9-10.8); PLT - PLATELET COUNT 331 10^3/uL (130-450); RED CELL DISTRIBUTION WIDTH 14.2 % (12.0-15.0)
[2025-03-15 05:37] LABS: ABNORMAL LYMPHS % (MANUAL) 0 %; BASOPHILS # (MANUAL) 0.0 10^3/uL (0-0.1); EOSINOPHILS # (MANUAL) 0.0 10^3/uL (0-0.7)
[2025-03-15 05:43] LABS: BUN - BLOOD UREA NITROGEN 24.0 mg/dL (6-20); CARBON DIOXIDE - CO2 29.0 mmol/L (21-32); CREATININE 0.7 mg/dL (0.6-1.3); GFR - MDRD 81.0 (>89)
[2025-03-15 06:04] LABS: BAND NEUTROPHILS % (MANUAL) 1 %; LYMPHOCYTES # (MANUAL) 0.8 10^3/uL (1.5-3.5); LYMPHOCYTES % (MANUAL) 5 %; METAMYELOCYTES % (MANUAL) 2 %; MONOCYTES # (MANUAL) 1.7 10^3/uL (0.0-1.0); MYELOCYTES % (MANUAL) 1 %; NEUTROPHILS # (MANUAL) 12.3 10^3/uL (1.5-6.6); PLATELET MORPHOLOGY NORMAL APPEARANCE (NORMAL); RBC MORPHOLOGY (MULTIPLE) NORMAL APPEARANCE (NORMAL)
[2025-03-15 06:05] LABS: PLATELET ESTIMATE, MANUAL NORMAL (130-450,000) (NORMAL); WBC MORPHOLOGY (MULTIPLE) NORMAL APPEARANCE (NORMAL)
--- NOTE | 2025-03-15 08:05 | PROVIDER PROGRESS NOTE ---
Subjective Prog Note Date Prog Note Date: 03/15/25 Prog Note Time: 08:05 Subjective Pt reports feeling: Improved Subjective: Patient is continuing to feel slow but overall improvement. Now on 1-2L NC. Saw RT today and required 5L with exertion. Improvement of dry cough as well. Was not able to collect much sputum. Denies any new fevers or chills. No wheezing. Current Medications Current Medications Current Medications: Current Medications Generic Name Dose Route Start Last Admin Trade Name Freq PRN Reason Stop Dose Admin Acetaminophen 650 mg 03/09/25 16:31 Acetaminophen 325 Mg Tablet PO Q4HR PRN Pain 1 to 4, or Fever Albuterol 2.5 mg 03/09/25 16:54 03/13/25 16:15 Albuterol Neb 2.5 Mg/3 Ml INH 2.5 mg RTQ4H PRN Administration Wheezing Apixaban 5 mg 03/09/25 21:00 03/14/25 22:20 Apixaban 5 Mg Tablet PO 5 mg BID CINDI Administration Atorvastatin Calcium 40 mg 03/10/25 09:00 03/14/25 08:57 Atorvastatin 40 Mg Tablet PO 40 mg DAILY CINDI Administration Diltiazem HCl 240 mg 03/09/25 21:00 03/14/25 22:20 Diltiazem Cd 240 Mg Capsule PO 240 mg BID CINDI Administration Fluticasone Propionate 1 sprays 03/10/25 09:00 03/14/25 08:57 Fluticasone Nasal [place] AURELIO 1 sprays DAILY CINDI Administration Furosemide 20 mg 03/14/25 09:00 03/14/25 08:57 Furosemide 20 Mg Tablet PO 20 mg DAILY CINDI Administration Guaifenesin 10 ml 03/12/25 09:26 03/14/25 16:52 Guaifenesin/Dextromethorphan 10 Ml Udc PO 10 ml Q6HR PRN Administration Cough Ceftriaxone Sodium 2 gm/ 100 mls @ 200 mls/hr 03/13/25 13:10 03/14/25 09:35 Sodium Chloride IV Infused DAILY CINDI Infusion Ampicillin Sodium/Sulbactam 100 mls @ 200 mls/hr 03/15/25 08:00 Sodium 3 gm/ Sodium Chloride IV Q6HR CINDI Levothyroxine Sodium 100 mcg 03/10/25 07:00 03/15/25 06:14 Levothyroxine 100 Mcg Tablet PO 100 mcg QDAC CINDI Administration Levothyroxine Sodium 75 mcg 03/10/25 07:00 03/15/25 06:14 Levothyroxine 75 Mcg Tablet PO 75 mcg QDAC CINDI Administration Losartan Potassium 25 mg 03/11/25 10:00 03/14/25 22:21 Losartan 50 Mg Tablet PO 25 mg BID CINDI Administration Metoprolol Succinate 200 mg 03/10/25 09:00 03/14/25 08:56 Metoprolol Succinate 50 Mg Tablet PO 200 mg DAILY CINDI Administration Montelukast Sodium 10 mg 03/09/25 21:00 03/14/25 22:21 Montelukast 10 Mg Tablet PO 10 mg QPM CINDI Administration Nystatin 1 applic 03/12/25 21:00 03/14/25 22:22 Nystatin Cream 15 Gm Tube TOP 1 applic BID CINDI Administration Ondansetron HCl 4 mg 03/09/25 16:31 Ondansetron Odt 4 Mg Tablet TL Q6HR PRN Nausea / Vomiting Ondansetron HCl 4 mg 03/09/25 16:31 Ondansetron 4 Mg/2 Ml Vial IVP Q6HR PRN Nausea / Vomiting Oxycodone HCl 5 mg 03/09/25 16:31 Oxycodone 5 Mg Tablet PO Q4HR PRN Pain 5 to 7 Oxymetazoline HCl 2 sprays 03/13/25 10:00 03/14/25 22:22 Oxymetazoline Nasal [place] AURELIO 03/15/25 09:59 Not Given BID CINDI Sodium Chloride 10 ml 03/09/25 16:31 03/13/25 13:42 Sodium Chloride Flush 0.9% 10 Ml Syringe IVP 10 ml PRN PRN Administration NEEDED PER PROVIDER ORDERS Sodium Chloride 10 ml 03/09/25 17:00 03/15/25 00:34 Sodium Chloride Flush 0.9% 10 Ml Syringe IVP 10 ml 0100,0900,1700 CINDI Administration Spironolactone 25 mg 03/10/25 09:00 03/14/25 08:57 Spironolactone 25 Mg Tablet PO 25 mg DAILY CINDI Administration Zolpidem Tartrate 5 mg 03/09/25 21:00 03/14/25 22:21 Zolpidem 5 Mg Tablet PO 5 mg HS CINDI Administration Objective Vital Signs/Intake & Output Reviewed Vital Signs: Yes Vital Signs: Vital Signs x48h Temp Pulse Resp BP Pulse Ox O2 Flow Rate 03/15/25 00:41 36.6 C 79 20 102/71 90 L 3 Intake & Output: Intake & Output 03/12/25 03/13/25 03/14/25 03/15/25 23:59 23:59 23:59 23:59 Intake Total 2170 / 2170 1170 / 1170 810 / 810 200 / 200 Output Total 2250 / 2250 2210 / 2210 500 / 500 150 / 150 Balance -80 / -80 -1040 / -1040 310 / 310 50 / 50 Weight (kg) 125.5 kg 125 kg 125 kg 125.5 kg Objective Comments/Other: Gen: Well nourished and well developed. No acute distress. Pleasant, sitting up in chair, reading NYT on her laptop. Heent: Normocephalic/atraumatic, normal appearance of external ears and nose. Cardiac: Irregular rhythm, rate controlled. No murmurs appreciated. No visible JVP elevation, limited by habitus. Trace pitting edema bilaterally. Pulm: Normal effort on 2 L. Course rhonchi over R middle lobe. Dry cough. Abdomen: Rounded, soft, nontender, no rebound tenderness or guarding. Extremities: Moves all 4 extremities equally. Normal tone. Neuro: Face symmetric, CN II through XII intact grossly. No focal neurologic deficits. Psych: Mood euthymic with congruent affect. Good fund of knowledge. Judgment intact. Lab Results 03/15/25 05:10 03/15/25 05:10 Other Labs: Lab Results x24hrs 03/15/25 03/14/25 03/14/25 Range/Units 05:10 10:01 05:15 WBC 15.2 H (4.8-10.8) x10^3/uL RBC 4.32 (4.20-5.40) 10^6/uL Hgb 13.0 (12.0-16.0) g/dL Hct 41.0 (37.0-47.0) % MCV 94.9 (81.0-99.0) fL MCH 30.1 (27.0-31.0) pg MCHC 31.7 L (32.0-36.0) g/dL RDW 14.2 (12.0-15.0) % Plt Count 331 (130-450) 10^3/uL MPV 8.9 (7.9-10.8) fL Neut # (Auto) Not Reportable Lymph # (Auto) Not Reportable [place] # (Auto) Not Reportable Eos # (Auto) Not Reportable Baso # (Auto) Not Reportable Absolute Nucleated RBC Not Reportable Total Counted 100 Band Neuts % (Manual) 1 (0 - 10) % Abnorm Lymph % (Manual) 0 % Metamyelocytes % 2 H ( - 0) % Myelocytes % 1 H ( - 0) % Nucleated RBC % Not Reportable Neutrophils # (Manual) 12.3 H (1.5-6.6) 10^3/uL Lymphocytes # (Manual) 0.8 L (1.5-3.5) 10^3/uL Monocytes # (Manual) 1.7 H (0.0-1.0) 10^3/uL Eosinophils # (Manual) 0.0 (0-0.7) 10^3/uL Basophils # (Manual) 0.0 (0-0.1) 10^3/uL Differential Comment MANUAL DIFFERENTIAL WBC Morphology NORMAL APPEARANCE (NORMAL) Platelet Estimate NORMAL (130-450,000) (NORMAL) Platelet Morphology NORMAL APPEARANCE (NORMAL) RBC Morph Micro Appear NORMAL APPEARANCE (NORMAL) Sodium 132 L (135-145) mmol/L Potassium 3.6 (3.5-4.5) mmol/L Chloride 98 L (101-111) mmol/L Carbon Dioxide 29 (21-32) mmol/L Anion Gap 5.0 L (6-13) BUN 24 H (6-20) mg/dL Creatinine 0.7 (0.6-1.3) mg/dL Estimated GFR (MDRD) 81 L (>89) Glucose 120 H (74-104) mg/dL Estimat Average Glucose 146 H (70-100) mg/dL Hemoglobin A1c % 6.7 H (4.27-6.07) % Calcium 8.9 (8.5-10.3) mg/dL Magnesium 1.9 (1.7-2.3) mg/dL C-Reactive Protein 1.6 H (<0.5) mg/dL Nasal Screen MRSA (PCR) NEGATIVE (NEGATIVE) Sputum culture ordered, awaiting collection as able. Diagnostic Imaging Diagnostic Imaging Results: positive Final report reviewed and Read independently Diagnostic Imaging Comments: Chest x-ray 03/11 compared to 03/09. Unchanged small right pleural effusion and right lung base opacity. CT Chest without IV 03-13-2025, no prior comparisons. Masslike lesion in the right middle lobe, with enlarged right hilar and mediastinal lymph nodes. Findings are concerning for malignancy. Differential includes consolidation as the lesion stays within the confines of the fissures. Correlate with leukocytosis. If there is no elevated white blood count, consider tissue sampling. Sepsis Event Note (H) Evaluation Current Stage of Sepsis: Severe sepsis Possible source of Sepsis: positive Pulmonary Sepsis Criteria Sepsis Criteria: Recorded Heart Rate greater than 90 bpm, Recorded Respiratory Rate greater than 20, Respiratory: Increasing oxygen requirements and WBC count greater than 12,000 or less than 4000 Assessment/Plan Problem List (1) Hypoxia: (2) Pneumonia: Qualifiers: Laterality: right Lung location: lower lobe of lung Pneumonia type: d ue to unspecified organism Qualified Code(s): J18.9 - Pneumonia, unspecified organism (3) Rhinovirus infection: Impression: Overall improvement, now on 2L NC. Requiring 5L with exertion per RT recommendations. Remains afebrile, but given her persistent leukocytosis and O2 requirement, will consider broader coverage of antibiotics including anaerobes. MRSA nares negative. Sputum culture not available. Mostly likely due to bacterial superimposed viral pneumonia. She has a clear RML consolidation on CT scan, consistent with opacity seen on CXR. Positive for rhinovirus. NGD blood cx. Neg procal. CRP 1.6. Not on oxygen at baseline. Required 5-7L on arrival to ED. Received ceftriaxone and azithromycin (03/09- 03/14). - Switched to Unasyn today. - Continue 2L NC, wean as tolerated, goal sat 88% - 92% - Repeat RT tomorrow, hope to see improvement in O2 requirement on exertion. - Recommend repeat CT in 3 months to to r/o underlying malignancy. (4) Congestive heart failure: Impression: Remains dry on exam, good urine output. Remains below her reported home dry weight of 288lbs. On home oral furosemide 20mg. ECHO shows HFpEF with EF 65 to 70%. Moderate right ventricular enlargement and mild right ventricular systolic function. 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 - Monitor BMP AM, replenish as needed - Strict IO, daily weight - Cardiac diet Qualifiers: Heart failure chronicity: acute on chronic Heart failure type: u nspecified Qualified Code(s): I50.9 - Heart failure, unspecified (5) Asthma: Impression: Not in acute exacerbation. No wheezing on exam and improving cough. On daily Advair and albuterol prn at home, without recent exacerbations. Suspect asthma/COPD overlap. Former smoker, quit 40+ years ago, 15 pyh. Does not have formal COPD diagnosis. Spirometry for 2017 shows FEV1/FVC of 0.79 from 2017. She received steroids and breathing treatment in the ambulance which improved some of her symptoms. Received few doses of steroids without significant improvement in respiratory status and d/c 03-11. - Continue albuterol prn - Recommend follow-up with established pulmonary as outpatient Qualifiers: Asthma complication type: unspecified Asthma persistence: intermittent Asthma severity: mild Qualified Code(s): J45.20 - Mild intermittent asthma, uncomplicated (6) Obesity hypoventilation syndrome: (7) RADHA (obstructive sleep apnea): Impression: Patient has an overlap of obesity hypoventilation syndrome and RADHA. She is on CPAP at home. She has brought in her machine, which she uses with hydrated 3L oxygen nightly. - Okay to use home CPAP (8) Diabetes type 2: Impression: A1c 6.7, on metformin at home. Glucose has remained <140 during the duration of her stay without SSI. - Continue to monitor glucose - Cardiac diet - Resume metforming as outpatient. (9) Atrial fibrillation: Impression: Currently rate controlled On diltiazem, Toprol and DOAC - Continue home meds Qualifiers: Atrial fibrillation type: longstanding persistent Qualified Code(s): I 48.11 - Longstanding persistent atrial fibrillation (10) Sepsis: Impression: Remains resolved. Patient's vital signs remained stable. Blood pressure normotensive, not tachycardic. Afebrile. Patient initially presented with septic vital signs, tachycardia, leukocytosis, tachypnea. Severe sepsis by account of acute hypoxemic respiratory failure. Septic physiology is resolved by03/10. Antihypertensives resumed 03/11. She was maintained on her atrial fibrillation medications. Did not have any hypotension. - Follow-up blood cultures, NGTD Qualifiers: Acute respiratory failure type: with hypoxia Sepsis acute organ dysfunction status: with acute organ dysfunction Sepsis type: sepsis due to unspecified organism Severe sepsis acute organ dysfunction type: acute respiratory failure Severe sepsis shock status: without septic shock Qualified Code(s): A41.9 - Sepsis, unspecified organism; R65.20 - Severe sepsis without septic shock; J96.01 - Acute respiratory failure with hypoxia (11) Hypothyroid: Impression: Continuing home T4 dose Qualifiers: Hypothyroidism type: acquired Qualified Code(s): E03.9 - Hypothyroidism, unspecified (12) Morbid obesity: Impression: Class III obesity noted
[2025-03-15] MEDS: AMPICILLIN/SULBACTAM 3 GM in SODIUM CHLORIDE 0.9% MINIBAG 100 ML IV SCH (08:49)
[2025-03-16 05:54] LABS: HCT - HEMATOCRIT 38.8 % (37.0-47.0); HGB - HEMOGLOBIN 12.5 g/dL (12.0-16.0); MEAN PLATELET VOLUME 9.1 fL (7.9-10.8); PLT - PLATELET COUNT 315 10^3/uL (130-450); RED CELL DISTRIBUTION WIDTH 14.4 % (12.0-15.0)
[2025-03-16 06:08] LABS: BUN - BLOOD UREA NITROGEN 27.0 mg/dL (6-20); CARBON DIOXIDE - CO2 29.0 mmol/L (21-32); CREATININE 0.8 mg/dL (0.6-1.3); GFR - MDRD 70.0 (>89)
[2025-03-16 06:10] LABS: ABNORMAL LYMPHS % (MANUAL) 0 %; BASOPHILS # (MANUAL) 0.0 10^3/uL (0-0.1); EOSINOPHILS # (MANUAL) 0.0 10^3/uL (0-0.7)
[2025-03-16 06:35] LABS: BAND NEUTROPHILS % (MANUAL) 2 %; LYMPHOCYTES # (MANUAL) 0.7 10^3/uL (1.5-3.5); LYMPHOCYTES % (MANUAL) 5 %; METAMYELOCYTES % (MANUAL) 1 %; MONOCYTES # (MANUAL) 1.0 10^3/uL (0.0-1.0); MYELOCYTES % (MANUAL) 1 %; NEUTROPHILS # (MANUAL) 11.7 10^3/uL (1.5-6.6)
[2025-03-16 06:36] LABS: PLATELET ESTIMATE, MANUAL NORMAL (130-450,000) (NORMAL); PLATELET MORPHOLOGY NORMAL APPEARANCE (NORMAL); RBC MORPHOLOGY (MULTIPLE) NORMAL APPEARANCE (NORMAL); WBC MORPHOLOGY (MULTIPLE) NORMAL APPEARANCE (NORMAL)
[2025-03-16] MEDS: FUROSEMIDE 40 MG TABLET PO SCH (08:50)
--- NOTE | 2025-03-16 09:07 | Discharge Summary ---
"Discharge Summary Admit Date: 03/09/25 Discharge Date: 03/16/25 Discharging Provider: Kayla Dick MD Primary Care Provider: Ney VILCHIS Code Status: Attempt Resuscitation Discharge Facility Name: Home, self care DIAGNOSES Discharge Diagnoses with Status of Each Condition: #Acute hypoxic respiratory failure #RML pneumonia #Positive rhinovirus infection Mostly likely due to bacterial superimposed viral pneumonia. She has a clear RML consolidation on CT scan, consistent with opacity seen on CXR. Positive for rhinovirus. Unable to obtain sputum culture. Blood cultures remained negative to growth. She initially required 5-7L NC on arrival to the ED, and was slowly weaned off to RA during her course of stay. She is not on oxygen at baseline, only at nighttime with her CPAP. Her course was complicated by an extended course of antibiotics due to her persistent leukocytosis and O2 requirement. She initially received ceftriaxone and azithromycin on 03-09. Azithromycin was stopped 03-14. And ceftriaxone was continued until we switched to Unasyn 03-15 for broadened coverage of anaerobes. She responded well to this and was successfully weaned off to RA. Residual but improved dry cough. - Will continue treatment for extended 10 day course. - Transition to oral Augmentin 875mg BID - Recommended repeat CT chest in 6-8 weeks to r/o malignancy - Follow-up with PCP for update on vaccines - Follow-up with pulmonology for repeat CT + PFT #HFpEF Initial concern for exacerbation due to interstitial edema and congestion seen on CXR, but remained dry on exam and below home dry weight of 288lb during course of stay. She had good urine output and transitioned to oral furosemide 20mg. - Continue home GDMT medications (Aldactone, Toprol) and furosemide without changes. Losartan 25 mg switched to once a day. #Asthma Remained without exacerbation. Initially received a few doses of steroids, but did not have significant improvement with this. 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 Former smoker, quit 40+ years ago, 15 pyh. - Continue daily Advair BID and albuterol prn - Recommend follow-up with pulmonology for repeat PFT #Obesity hypoventilation syndrome #RADHA - Continue CPAP nightly with hydrated O2 #T2DM, well controlled - Continue metformin #Atrial fibrillation - Continue rate control on Toprol and diltiazem without changes. - Continue Pradexa #Hypothyroidism - Continue home T4 HPI History of Present Illness: From admission note: Very pleasant 74-year-old female with past medical history of class III obesity, HTN, T2DM, CHF, A-fib on DOAC, RADHA on CPAP who presents to the ED with dyspnea. She was seen just a couple of days ago in the ED for similar symptoms. Treated for acute exacerbation of congestive heart failure. Her symptoms improved enough to where she was able to go home at that time, but she did not want to come to the hospital. She returns with ongoing and worsening symptoms. She is found to be hypoxemic in the ER, and utilizing up to 7 L of oxygen to maintain normal saturations. Patient tells me that she began experiencing dyspnea approximately 4 days prior to arrival. She is not been having any alan fevers or rigors at home, but she has noticed increased cough perhaps over the last month. Does not note any increased dyspnea on exertion. She normally ambulates with a walker. She has not noticed any increased orthopnea. Has a history of heart failure exacerbations and had a episode several years ago where she needed to be hospitalized and received IV diuresis. At that time, she started a low-sodium diet, and since lost 60 pounds of water weight and has not had much change in her weight by her recollection. Over the last 4 days, she has had a more productive cough. She is coughing up copious amounts of sputum. She does not carry a diagnosis of COPD, and is a former smoker. She does have a history of asthma and CHF overlap. She takes montelukast with symptom driven albuterol. Otherwise denies abdominal pain, nausea, vomiting, diarrhea. Denies any new swelling in her lower extremities. Of note she received a breathing treatment and Solu-Medrol in the ambulance. Patient is full code, we had an extensive advance care planning conversation. Please see separate note from today. CONSULTS | PROCEDURES Consultations: Respiratory therapy Procedures: 03-09-2025 CXR 03-11-2025 CXR 03-13-2025 CT chest w/o contrast 03-09-2025 Blood culture x2 HOSPITAL COURSE Hospital Course: Patient presented for dyspnea and was found to be septic on arrival with tachycardia and tachypnea. Was utilizing up to 5-7L of oxygen to maintain normal saturations in the ED. Elevated WBC 12.5. Was found to be positive for rhinovirus. CXR revealed R lung base opacity with increased pleural effusions. Given these findings, started treatment for CAP and azithromycin, likely bacterial superimposed viral infection. Sputum culture was also ordered, but unable to obtain throughout course her stay. Given her history of asthma and improvement with Solu-Medrol in the ambulance, we also started a steroid pulse treatment for 5 days. However, given her minimal improvement and still requiring 4-5L NC, this was stopped after two days. With her known history of CHF and interstitial edema noted on CXR, she also received IV furosemide and was maintained on strict IOs with daily weights. She remained clinically dry with good urine output and below home dry weight throughout course of stay. She was transitioned to oral furosemide 40mg on 03-14. She continued to receive ceftriaxone and azithromycin until 03/13. Patient continued to have subjective improvement but decision was made to obtain CT chest given her persistent leukocytosis and minimal improvement of her O2 requirement. CT chest revealed clear consolidation of RML. MRSA nares also obtained and returned negative at this time. Ceftriaxone was continued until 03-15 when we decided to broaden to Unasyn for coverage of anaerobes. She responded well to this and was able to completely wean off O2 to RA the following morning. Remained stable with normal vital signs throughout her duration of stay. Medically cleared for discharge on 03-16. ALLERGIES Allergies Allergy/AdvReac Type Severity Reaction Status Date / Time acetaminophen (From Percocet) AdvReac Hallucinati Verified 03/09/25 12:26 ons codeine AdvReac Dizziness Verified 03/09/25 12:26 oxycodone (From Percocet) AdvReac Hallucinati Verified 03/09/25 12:26 ons MEDICATIONS Ambulatory Orders Medication Instructions Recorded Confirmed albuterol sulfate 90 mcg/actuation 2 puff inhalation Q 4H PRN 11/12/18 03/09/25 aerosol inhaler shortness of breath or wheez ing atorvastatin 40 mg tablet 1 tab PO DAILY 11/12/1802/22 dabigatran etexilate 75 mg capsule 75 mg PO BID 03/09/25 (Pradaxa) diltiazem HCl 240 mg 240 mg PO BID 11/12/1803/09 capsule,extended release 24 hr, controlled (DILT-XR) levothyroxine 175 mcg tablet 1 tab PO DAILY 11/12/18 1 metformin 500 mg tablet 1 tab PO BID 11/12/18 metoprolol succinate 200 mg 1 tab PO DAILY 11/12/18 tablet,extended release 24 hr (Toprol XL) zolpidem 5 mg tablet 5 mg PO ONCE PRN insomnia 03/09/25 guaifenesin 600 mg tablet, 600 mg PO BID #14 tabs 07/2403/09/25 extended release 12 hr (Mucinex) spironolactone 25 mg tablet 25 mg PO DAILY 08/16/22 furosemide 20 mg tablet 20 mg PO QAM 03/07/25 montelukast 10 mg tablet 10 mg PO QPM 03/07/25 Augmentin 875 mg-potassium 1 tab PO BID 3 days #6 tabs 03/16/25 clavulanate 125 mg tablet losartan 50 mg tablet 25 mg (1/2 x 50 mg) PO DAILY #30 03/16/25 03/09/25 tabs PHYSICAL EXAM AT DISCHARGE Vital Signs: Vital Signs x48h Pulse 03/16/25 08:18 96 LABS 03/16/25 05:33 03/16/25 05:33 Other Lab Results: Gen: Well nourished and well developed. No acute distress. Pleasant, sitting up in chair, reading on her laptop. Heent: Normocephalic/atraumatic, normal appearance of external ears and nose. Cardiac: Irregular rhythm, rate controlled. No murmurs appreciated. No visible JVP elevation, limited by habitus. Trace pitting edema bilaterally. Pulm: Normal effort on RA. Improved rhonchi over R middle lobe. Dry cough. No wheezes. Abdomen: Rounded, soft, nontender, no rebound tenderness or guarding. Extremities: Moves all 4 extremities equally. Normal tone. Neuro: Face symmetric, CN II through XII intact grossly. No focal neurologic deficits. Psych: Mood euthymic with congruent affect. Good fund of knowledge. Judgment intact. DIAGNOSTIC IMAGING Diagnostic Imaging Results: Final report reviewed Diagnostic Imaging Results Comments: CXR compared to 03/09. Unchanged small right pleural effusion and right lung base opacity. 03-13-2025 CT Chest w/o contrast, no prior comparisons. Masslike lesion in the right middle lobe, with enlarged right hilar and mediastinal lymph nodes. Findings are concerning for malignancy. Differential includes consolidation as the lesion stays within the confines of the fissures. Correlate with leukocytosis. If there is no elevated white blood count, consider tissue sampling SEPSIS Current Stage of Sepsis: Resolved Possible source of Sepsis: Pulmonary Sepsis Criteria: Recorded Heart Rate greater than 90 bpm, Recorded Respiratory Rate greater than 20, Respiratory: Increasing oxygen requirements and WBC count greater than 12,000 or less than 4000 FOLLOW UP Follow Up: - PCP for review of labs and vaccines (flu, COVD, RSV) - Pulmonology for review of repeat CT chest and PFTs TIME SPENT Time Spent in Discharge (Minutes): 35 Discharge Plan Discharge Patient Disposition: Home, Self Care Condition: Serious Prescriptions: New amoxicillin-pot clavulanate 875-125 mg tablet 1 tab PO BID 3 Days Qty: 6 0RF Continued metformin 500 MG tablet 1 tab PO BID diltiazem HCl [DILT-XR] 240 capsule,ext.rel 24h degradable 240 mg PO BID zolpidem 5 MG tablet 5 mg PO ONCE PRN (Reason: insomnia) atorvastatin 40 MG tablet 1 tab PO DAILY levothyroxine 175 tablet 1 tab PO DAILY metoprolol succinate [Toprol XL] 200 MG tablet extended release 24 hr 1 tab PO DAILY dabigatran etexilate [Pradaxa] 75 MG capsule 75 mg PO BID albuterol sulfate 8.5 GM HFA aerosol inhaler 2 puff inhalation Q4H PRN (Reason: shortness of breath or wheezing) spironolactone 25 MG tablet 25 mg PO DAILY 0RF guaifenesin [Mucinex] 600 MG tablet extended release 12hr 600 mg PO BID Qty: 14 0RF montelukast 10 mg tablet 10 mg PO QPM Patient Comments: TAKE 1 TABLET BY MOUTH EVERY DAY furosemide 20 mg tablet 20 mg PO QAM Changed losartan 50 MG tablet 25 mg PO DAILY Qty: 30 0RF Activity Restrictions: Activity as Tolerated Diet: Regular Health Concerns: You came in for progressive shortness of breath. Initially, you required 7 L of oxygen. We are so happy you're down to room air now. You tested positive for rhinovirus, which is the common cold. You also had a likely exacerbation of your heart failure with extra fluid building up in your lungs on top of this. You were started on some IV Lasix, or furosemide, to help get rid of this. You also likely have a superimposed bacterial pneumonia on top of your viral pneumonia. While you have been here, you have received 7 days of IV antibiotics. Will be sending you home with 3 more days of oral antibiotics to complete an extended course. We have slowly been able to take you off oxygen, and you are now on room air. However, with activity, you may require oxygen. I understand that you are well versed in this, and have oxygen as well as a pulse oximeter to measure your oxygen levels at home. As discussed, your chest CT showed a consolidation in the right middle lobe of your lung. Sometimes it is hard to tell whether there is an underlying mass or if it is just a pneumonia. When your infection has resolved, you will need a repeat CT scan, likely in 6 to 8 weeks. Your adrenal glands also showed a small nodule, which will need follow-up on as well. Please take this discharge paperwork to your primary care provider's office; they can also request records from [facility] so they have the entire report to follow-up with you closely. While you have been here, your blood pressures have been on the lower side. I would like you to decrease your losartan to just once a day instead of taking it twice a day. As discussed, you should follow-up with your primary care provider in the next 1 to 2 weeks. Please make sure that they order this repeat CAT scan for you. Additionally, they should provide you with a pulmonology referral so a lung specialist can follow with you closely. Please continue to take it easy at home. Only increase activity as tolerated. You may still have some shortness of breath and a cough for the next few weeks. If you feel like your shortness of breath is worsening, if you have any fevers, chills, chest pain, etc., please feel free to return to the emergency room. We are so glad you are feeling better, thank you for allowing us to take care of you. It has been a pleasure getting to know you. Print Language: Ethiopian Patient Instructions: What Is Pneumonia? Stand Alone Forms: PCP List Follow-up Care: NEY KIRKPATRICK ARNP [Primary Care Provider, Nurse Practitioner]"
[2025-03-16 11:34] VITALS: BP 86/53; TEMP 97.7; O2SAT 89
== END 2025-03-16 11:35 | disposition home or self-care (01) | DRG 871 ==
LOC: MS2 12:19 → ED 12:19 → MS2 15:30
PROVIDERS: ADMIT Student in an Organized Health Care Education/Training Program; ATTEND Student in an Organized Health Care Education/Training Program
DX: E11.9 Type 2 diabetes mellitus without complications; J12.89 Other viral pneumonia; E66.2 Morbid (severe) obesity with alveolar hypoventilation; Z79.01 Long term (current) use of anticoagulants; Z79.899 Other long term (current) drug therapy; J18.9 Pneumonia, unspecified organism; A41.89 Other specified sepsis; I48.91 Unspecified atrial fibrillation; Z79.84 Long term (current) use of oral hypoglycemic drugs; J96.01 Acute respiratory failure with hypoxia; J15.9 Unspecified bacterial pneumonia; B97.89 Other viral agents as the cause of diseases classified elsewhere; E66.813 Obesity, class 3; I50.32 Chronic diastolic (congestive) heart failure; Z79.890 Hormone replacement therapy; J45.20 Mild intermittent asthma, uncomplicated; B34.8 Other viral infections of unspecified site; Z68.43 Body mass index [BMI] 50.0-59.9, adult; I50.9 Heart failure, unspecified; E03.9 Hypothyroidism, unspecified; Z87.891 Personal history of nicotine dependence; J45.909 Unspecified asthma, uncomplicated; A41.9 Sepsis, unspecified organism; I11.0 Hypertensive heart disease with heart failure